=== PATIENT | male | born 1945 | race Caucasian/White ===

== ENCOUNTER 2016-10-05 11:22 | Outpatient (CLI) | payer MEDICARE ==
[~2016-10-05] VITALS: Ht 177.8 cm; Wt 86.4 kg
--- NOTE | ~2016-10-05 | HEMODYNAMI ---
PATIENT:RAJNI CHAVEZ MEDICAL RECORD: [id number] : 47 [id number] ADMISSION DATE: 10/05/16 Generatedon:10/05/201616:06 Patient name: RAJNI CHAVEZ Patient #: [id number] SSN: : 1945 Date of study: 10/05/2016 Page: Of Hemodynamic Procedure Report Patient Data Patient Demographics Procedure consent was obtained First Name: RAJNI Gender: Male Last Name: SCOTT : 1945 [facility] Initial: KIMBERLI Age: 70 year(s) AUDIE Race: Patient #: [id number] Additional ID: [id number] Contact details [address]: [address] [place] [address] State: [place] City: [place] Zip code: [address] Past Medical History Allergies: No known allergies Admission Admission Data Admission Date: 10/05/2016 Admission Time: 11:22 Admit Source: Emergency department Room #: D.2116 Height (in.): 70 BSA: 2 (m2) Height (cm.): 177.8 BMI: 25.83 (kg/m2) Weight (lbs.): 180 Weight (kg.): 81.65 Lab Results Lab Result Date: 10/05/2016 Lab Result Time: 0:00 Biochemistry Name Units Result Min Max BUN mg/dl 19 --(----)*- 7 18 Creatinine mg/dl 1.6 --(----)-* 0.6 1.3 CBC Name Units Result Min Max Hemoglobin g/dl 12 *-(----)-- 13.5 17.5 Procedure Procedure Types Cath Procedure Diagnostic Procedure LHC LHC w/Coronaries w/Grafts PCI Procedure Coronary Stent Initial Procedure Description Procedure Date Procedure Date: 10/05/2016 Procedure Start Time: 15:27 Procedure End Time: 16:05 Procedure Staff Name Function Boris Weeks MD Performing Physician Bryce Kevin RN Nurse Piero Lou RT Scrub Parminder Cromwell RT Monitor Procedure Data Cath Procedure Fluoroscopy Diagnostic fluoroscopy Total fluoroscopy Time: 11 time: 11 min min Diagnostic fluoroscopy Total fluoroscopy dose: dose: 1487 mGy 1487 mGy Contrast Material Contrast Material Type Amount (ml) Isovue 300 152 Entry Location Entry Primary Successful Side Size Upsize Upsize Entry Closure Succes sful Closure Location (Fr) 1 (Fr) 2 (Fr) Remarks Device Remarks Femoral Right 5 Fr 6 Fr 7 Fr Exoseal artery Short Short Estimated blood loss: 10 ml Diagnostic catheters Device Type Used For End Catheter Placement Cordis 5Fr Pigtail LV Angiography Catheter (MP) Cordis 5Fr JL 4.0 Coronary Catheter (MP) Angiography Cordis 5Fr 3DRC Catheter Coronary (MP) Angiography Cordis Infinity 5Fr AR 2 SVG Angiography MOD catheter Procedure Complications No complications Procedure Medications Medication Administration Route Dosage Oxygen NC 2 l/min Lidocaine 2% added to field 20 Heparin Flush Bag added to field 2 bags (1000units/500ml NS) 0.9% NaCl I.V. 100 ml/hr Versed I.V. 2 mg Fentanyl I.V. 50 mcg Versed I.V. 2 mg Fentanyl I.V. 50 mcg Versed I.V. 1 mg Fentanyl I.V. 50 mcg Heparin Bolus I.V. 4000 units Integrilin (Bolus I.V. 7.9 ml 2mg/ml) Versed I.V. 1 mg Fentanyl I.V. 50 mcg Versed I.V. 1 mg Fentanyl I.V. 50 mcg Plavix P.O. 600 mg Hemodynamics Rest BSA: 2 (m2) HGB: 12 (g/dl) O2 Consumption: Estimated: 225.2 (ml/min) O2 Consumpt ion indexed: Estimated:112.6 (ml/min/m) Heart Rate: 61 (bpm) Pressure Samples Time Site Value (mmHg) Purpose Heart Use Rate(bpm) 15:33 AO 133/65(92) Snapshot 63 Snapshots Pre Cath Intra NCS Post Cath Vital Signs Time Heart Resp SPO2 NIBP (mmHg) Rhythm Pain Sedation Rate (ipm) (%) Status Level (bpm) 15:19:44 61 15 100 173/78(149) NSR 0 (11) 10(A) , No pain 15:24:08 62 25 96 141/77(116) NSR 0 (11) 10(A) , No pain 15:28:30 57 17 100 140/75(91) NSR 0 (11) 9(A) , No pain 15:32:50 61 16 99 153/73(94) NSR 0 (11) 9(A) , No pain 15:38:16 82 16 100 164/74(119) NSR 0 (11) 9(A) , No pain 15:42:34 63 15 100 124/64(97) NSR 0 (11) 9(A) , No pain 15:47:41 62 16 100 135/66(99) NSR 0 (11) 9(A) , No pain 15:52:04 61 14 99 128/60(102) NSR 0 (11) 9(A) , No pain 15:56:18 61 16 100 138/74(119) NSR 0 (11) 10(A) , No pain 16:00:38 61 17 100 153/71(111) NSR 0 (11) 10(A) , No pain 16:05:00 60 12 100 No Cuff NSR 0 (11) 10(A) , No pain Medications Time Medication Route Dose Verified Delivered Reason Notes Effectiveness by by 15:22:48 Oxygen NC 2 Boris Buffie used for l/min Micky Kevin RN procedure 15:22:54 Lidocaine 2% added 20ml Boris Boris for local to vial Micky Weeks MD anesthetic field 15:23:01 Heparin Flush added 2 Boris Boris used for Bag to bags Micky Weeks MD procedure (1000units/500ml field NS) 15:23:10 0.9% NaCl I.V. 100 Boris Buffie Per physician ml/hr Micky Kevin RN 15:25:50 Versed I.V. 2 mg Boris Buffie for sedation Micky Kevin RN 15:25:55 Fentanyl I.V. 50 Boris Buffie for sedation mcg Micky Kevin RN 15:28:47 Versed I.V. 2 mg Boris Buffie for sedation Micky Kevin RN 15:28:50 Fentanyl I.V. 50 Boris Buffie for sedation mcg Micky Kevin RN 15:31:46 Versed I.V. 1 mg Boris Buffie for sedation Micky Kevin RN 15:31:51 Fentanyl I.V. 50 Boris Buffie for sedation mcg Micky Kevin RN 15:38:10 Heparin Bolus I.V. 4000 Boris Wu for verifi ed units Micky Kevin RN anticoagulation with dr weeks 15:39:34 Integrilin I.V. 7.9 Boris Wu for (Bolus 2mg/ml) ml Micky Kevin RN antiplatelet therapy 15:42:51 Versed I.V. 1 mg Boris Wu for sedation Micky Kevin RN 15:42:54 Fentanyl I.V. 50 Boris Wu for sedation mcg Micky Kevin RN 15:49:58 Versed I.V. 1 mg Boris Wu for sedation Micky Kevin RN 15:50:01 Fentanyl I.V. 50 Boris Wu for sedation mcg Micky Kevin RN 15:58:10 Plavix P.O. 600 Boris Wu for mg Micky Kevin RN antiplatelet therapy Procedure Log Time Note 15:00:05 Admit Source: Emergency department 15:00:23 Diagnostic Cath status Elective 15:00:25 Parminder BISHOP(R) sent for patient. Start room use. 15:00: Time tracking: Regular hours 15:00:31 Plan of Care:Hemodynamics will remain stable., Cardiac rhythm will remain stable., Comfort level will be maintained., Respiratory function will remain adequate., Patient/ family verbilizes understanding of procedure., Procedure tolerated without complication., Recovers from procedure without complications.. 15:09:22 Patient received from PCU to CCL 1 Alert and oriented. Tansferred to table in Supine position. 15::24 Warm blankets applied, and nadeen hugger turned on for patient comfort. 15::24 Correct patient and procedure confirmed by team. 15::25 Signed procedure consent form obtained from patient. 15:: ECG and BP/O2 sat monitors applied to patient. 15:18:27 Vital chart was started 15:22:48 Oxygen 2 l/min NC was given by Bryce Kevin RN; used for procedure; 15::51 Baseline sample Acquired. 15::54 Lidocaine 2% 20ml vial added to field was given by Boris Weeks MD; for local anesthetic; 15:22:55 Rhythm: sinus rhythm 15:22:57 Full Disclosure recording started 15:23:01 Heparin Flush Bag (1000units/500ml NS) 2 bags added to field was given by Boris Weeks MD; used for procedure; 15:23:01 H&P Date Dictated: 10/05/2016 Within 30 days and on chart.. 15:23:01 Pre-procedure instructions explained to patient. 15:23:02 Pre-op teaching completed and patient verbalized understanding. 15:23:03 Family in waiting room. 15:23:10 0.9% NaCl 100 ml/hr I.V. was given by Bryce Kevin RN; Per physician; 15:23:11 Patient allergic to No known allergies 15:23:13 Is the patient allergic to Iodine/contrast media? No. 15:23:15 Is patient on blood thinner?Yes 15:23:19 ACC The patient was administered the following blood thiners within the last 24 hours: Unknown 15:24:10 Patient diabetic? No. 15:24:15 Previous problem with sedation/anesthesia? No ? 15:24:16 Snore? No 15:24:17 Sleep apnea? No 15:24:18 Deviated septum? No 15:24:19 Opens mouth fully? Yes 15:24:20 Sticks out tongue? Yes 15:24:21 Airway obstruction? No ? 15:24:23 Dentures? No ? 15:24:26 Pre procedure: right dorsailis pedis pulse 1+ Palpable, but thready & weak; easily obliterated 15:24:29 Patient pain scale 0/10 ?. 15:24:33 IV patent on arrival in left forearm with 0.9% NaCl at KVO. 15:24:35 Lab results completed and on chart. 15:24:38 Right groin area was prepped with chlora-prep and draped in sterile fashion 15:24:39 Alarms reviewed by R. N. 15:24:39 Sharps counted by scrub and verified by R.N. 15:24:41 --------ALL STOP TIME OUT------ 15:24:41 Final Timeout: patient, procedure, and site verified with staff and physician. All members of the team are in agreement. 15:24:48 Right groin site verified by team. 15:24:51 Physical assessment completed. ASA score P 2 - A patient with mild systemic disease as per Boris Weeks MD. 15:24:54 Sedation plan: IV Moderate Sedation Versed, Fentanyl 15:25:50 Versed 2 mg I.V. was given by Bryce Kevin RN; for sedation; :: Fentanyl 50 mcg I.V. was given by Bryce Kevin RN; for sedation; 15::33 Zero performed for pressure channel P1 15::36 Use device set Femoral Dx 15::38 Tegaderm 4 x 4 opened to sterile field. 15::40 Acist Hand Control opened to sterile field. 15::40 Acist Manifold opened to sterile field. 15::41 Acist Syringe opened to sterile field. 15::42 Bag Decanter opened to sterile field. 15::42 Cardinal Cath Pack opened to sterile field. 15::42 Terumo 5Fr Salix Sheath opened to sterile field. 15::43 St Ricardo 260cm J .035 wire opened to sterile field. 15:: Cordis Infinity 5Fr Multipack catheter opened to sterile field. 15::56 Procedure started. 15::58 Local anesthetic to right femoral artery with Lidocaine 2% by Boris Weeks MD.INITIAL ACCESS ONLY 15::47 Versed 2 mg I.V. was given by Bryce Kevin RN; for sedation; ::50 Fentanyl 50 mcg I.V. was given by Bryce Kevin RN; for sedation; :: Lab Result : Hemoglobin 12 g/dl 15:: Lab Result : Creatinine 1.6 mg/dl 15:: Lab Result : BUN 19 mg/dl 15:: A 5 Fr sheath was inserted into the Right Femoral artery 15::53 A Cordis 5Fr Pigtail Catheter (MP) was advanced over the wire and used for LV Angiography. 15::30 LV angiography performed. 15::31 LV gram done using ATWOOD 15::36 EF : 50 % :: Injector settings: Ml/sec: 5, Volume: 15, 15::43 Catheter removed. 15::46 Versed 1 mg I.V. was given by Bryce Kevin RN; for sedation; 15::48 A Cordis 5Fr JL 4.0 Catheter (MP) was advanced over the wire and used for Coronary Angiography. 15::51 Fentanyl 50 mcg I.V. was given by Bryce Kevin RN; for sedation; 15:32:21 LCA angiography performed. 15:32:22 Catheter removed. 15:32:26 A Cordis 5Fr 3DRC Catheter () was advanced over the wire and used for Coronary Angiography. 15:32:31 Patient Height : 177.8 cm 15:32:34 Patient Weight : 81.65 kg 15:33:34 WHITE to LAD angiography performed. 15:33:52 RCA angiography performed. 15:34:17 Terumo 6Fr Salix Sheath opened to sterile field. 15:34:18 [employer]abs (formerly [employer]) BasixCompak Inflation Kit opened to sterile field. 15:34:18 Nava Whisper J 300cm 0.014 guide wire opened to sterile field. 15:34:29 SVG to Circ angiography performed. 15:34:32 Catheter removed. 15:34:37 A Cordis Infinity 5Fr AR 2 MOD catheter was advanced over the wire and used for SVG Angiography. 15:36:06 SVG to Circ angiography performed. 15:36:10 SVG to RPDA angiography performed. 15:37:03 Relooked at SVG CIRC to better visualize. 15:37:06 Catheter removed. 15:37:17 Medtronic Launcher 6Fr HS II guide catheter opened to sterile field. 15:37:52 Sheath upsized to a 6 Fr Short. 15:38:01 ACC PCI Site: pRCA has 90% stenosis. 15:38:03 ACC Pre-intervention JORGE Flow is 3. 15:38:09 6 Fr HS 2 guide catheter was inserted over the wire 15:38:10 Heparin Bolus 4000 units I.V. was given by Bryce Kevin RN; for anticoagulation; verified with dr weeks 15:38:26 Whisper wire advanced. 15:39:08 Wire advanced across lesion. 15:39:34 Integrilin (Bolus 2mg/ml) 7.9 ml I.V. was given by Bryce Kevin RN; for antiplatelet therapy; 15:40:59 The Medtronic Resolute 4.0 X 22 stent was advanced then removed because of failure to cross lesion 15:41:37 [place] Oculeve Choice PT Extra Support J 300cm .014 gu opened to sterile field. 15:41:59 Choice PT XS wire advanced as sugey wire. 15:42:30 The [place] Sci Stewart 3.5 X 20 balloon was advanced and then removed because of failure to cross lesion 15:42:33 Wire removed. 15:42:49 Guide Catheter removed. unable to get back-up support 15:42:51 Versed 1 mg I.V. was given by Bryce Kevin RN; for sedation; 15:42:54 Fentanyl 50 mcg I.V. was given by Bryce Kevin RN; for sedation; 15:43:03 Medtronic Launcher 6Fr AR 2.0 guide catheter opened to sterile field. 15:43:10 6 Fr AR 2 guide catheter was inserted over the wire 15:44:17 Whisper wire advanced. 15:44:34 Wire advanced across lesion. 15:44:52 Whisper wire advanced as sugey wire. 15:45:06 Choice PT XS wire advanced. 15:46:02 Inflation number: 1 A [place] Sci Stewart 3.5 X 20 balloon was prepped and advanced across the Mid RCA, then inflated to 17 LOU for 0:10 (min:sec). 15:46:22 Multiple inflations made at 17 Atms. 15:46:46 Balloon removed over the wire. 15:48:29 The Medtronic Resolute 4.0 X 22 stent was advanced then removed because of failure to cross lesion 15:48:33 Wire removed. 15:48:34 Wire removed. 15:48:42 Guide Catheter removed. unable to get back-up support 15:49:58 Versed 1 mg I.V. was given by Bryce Kevin RN; for sedation; 15:50:01 Fentanyl 50 mcg I.V. was given by Bryce Kevin RN; for sedation; 15:50:05 Terumo 7Fr Salix Sheath opened to sterile field. 15:50:08 Medtronic Launcher 7Fr AR 2.0 SH guide catheter opened to sterile field. 15:50:16 Sheath upsized to a 7 Fr Short. 15:50:23 7 Fr AR 2 SH guide catheter was inserted over the wire 15:50:58 [place] Sci Choice PT Extra Support J 300cm .014 gu opened to sterile field. 15:51:05 Choice PT XS wire advanced. 15:51:31 Wire advanced across lesion. 15:52:58 Inflation number: 2 A NC Euphora 4.0 x 15 balloon was prepped and advanced across the Mid RCA, then inflated to 23 LOU for 0:10 (min:sec). 15:53:17 Multiple inflations made at 23 Atms. 15:54:12 Balloon removed over the wire. 15:55:21 Inflation Number: 3 A Medtronic Resolute 4.0 X 22 stent was prepped and advanced across the Mid RCA. The stent was deployed at 23 LOU for 0:10 (min:sec). 15:55:34 ACC Post-intervention JORGE Flow is 3. 15:55:37 Stent catheter was removed intact over wire. 15:55:38 Wire removed. 15:55:39 Guide catheter removed. 15:55:49 Cordis 7Fr Exoseal opened to sterile field. 15:56:01 Sheath removed intact; hemostasis achieved with Exoseal to the Right Femoral artery. 15:56:04 Procedure ended.(Physican Out) 15:56:30 Fluoroscopy time 11.00 minutes. 15:56:34 Fluoroscopy dose: 1487 mGy 15:56:34 Flurop Dose total: 1487 15:56:38 Contrast amount:Isovue 300 152ml. 15:56:44 Sharps counted by scrub and verified by R.N. 15:56:59 Insertion/operative site no bleeding no hematoma. 15:57:02 Post-op/insertion site Right Femoral artery dressed using a 4 x 4 and Tegaderm. 15:57:04 Post Procedure Pulses reassessed and unchanged 15:58:10 Plavix 600 mg P.O. was given by Bryce Kevin RN; for antiplatelet therapy; 15:58:17 Post procedure: right dorsailis pedis pulse 1+ Palpable, but thready & weak; easily obliterated. 15:58:20 Post-procedure physical assessment completed. ASA score P 2 - A patient with mild systemic disease as per Boris Weeks MD. 15:58:22 Post procedure rhythm: unchanged. 15:58:25 Estimated blood loss: 10 ml 15:58:27 Post procedure instruction explained to patient.Patient verbalizes understanding. 15:58:27 Patient needs reinforcement of post procedure teaching. 15:58:32 Procedure type changed to Cath procedure, Diagnostic procedure, LHC, LHC w/Coronaries w/Grafts, PCI procedure, Coronary Stent Initial 15:58:35 Procedure Complication : No complications 15:59:05 Procedure and supply charges have been captured, reviewed, submitted and are correct. 16:05:33 Vital chart was stopped 16:05:34 See physician's report for complete and final results. 16:05:38 Report given to PCU. 16:05:42 Patient transfered to PCU with Bed. 16:05:49 Procedure ended. 16:05:49 Full Disclosure recording stopped 16:06:03 ACC-PCI Only Patient was given prescriptions, or instructed by Boris Wekes MD to start/continue the following medications upon discharge: Plavix 16:06:04 End room use (Document Last) Intervention Summary Intervention Notes Time ActionType Lesion and Equipment Action# Pressure Duration Attributes Used 15:40:59 Discard Medtronic Stent Resolute 4.0 X 22 stent 15:42:30 Discard [place] Balloon Sci Stewart 3.5 X 20 balloon 15:46:02 Inflate Mid RCA [place] 1 17 00:10 balloon Sci Stewart 3.5 X 20 balloon 15:48:29 Discard Medtronic Stent Resolute 4.0 X 22 stent 15:52:58 Inflate Mid RCA NC 2 23 00:10 balloon Euphora 4.0 x 15 balloon 15:55:21 Place stent Mid RCA Medtronic 3 23 00:10 Resolute 4.0 X 22 stent Device Usage Item Name Manufacture Quantity Catalog Number Hospital Part Current Mini mal Lot# / Charge Number Stock Stock Serial# Code Tegaderm 4 3M 1 1626W [id number] [id number] 5 x 4 Acist Hand Acist 1 88617 675535 110084 649102 5 Control Medical Systems Inc Acist Acist 1 61397 986584 579054 565545 5 Manifold Medical Systems Inc Acist Acist 1 04607 069742 713138 382185 20 Syringe Medical Systems Inc Bag Microtek 1 2002S 410803 97392 993130 5 Decanter Medical Inc. Cardinal Cardinal 1 [id number] 067932 01086 509689 5 Cath Pack Health Terumo 5Fr Terumo 1 [id number] 314239 563421 603728 [address] Ricardo 1 [id number] 181527 065866 111519 30 260cm J .035 wire Cordis Cardinal 1 [id number] 853702 99018 747344 30 Infinity Health 5Fr Multipack catheter Cordis 5Fr Cardinal 1 090643 5 Pigtail Health Catheter (MP) Cordis 5Fr Cardinal 1 194494 5 JL 4.0 Health Catheter (MP) Cordis 5Fr Cardinal 1 450009 5 3DRC Health Catheter (MP) Terumo 6Fr Terumo 1 [id number] 782970 744777 350297 40 Salix Sheath [facility] 1 [id number] 966359 144862 837993 15 BasixCompak Medical Inflation Kit Nava Nava 1 [id number] 105421 246190 862125 5 Whisper J Vascular 300cm 0.014 guide wire Cordis Cardinal 1 [id number] 704793 967845 612921 20 Infinity Health 5Fr AR 2 MOD catheter Medtronic Medtronic 1 [id number] 456482 54631 325427 1 Launcher 6Fr HS II guide catheter Medtronic Medtronic 1 [id number] 232341 281720 0 [id number] Resolute 4.0 X 22 stent [place] Sci Brooklyn 2 [id number] 373108 20190325 689652 5 Choice PT Scientific Extra Support J 300cm .014 gu [place] Sci [place] 1 [id number] 141299 781378 713268 1 Ampex Scientific 3.5 X 20 balloon Medtronic Medtronic 1 [id number] 444617 06777 416144 1 Launcher 6Fr AR 2.0 guide catheter Terumo 7Fr Terumo 1 [id number] 861430 903556 959521 5 Salix Sheath Medtronic Medtronic 1 [id number] 232353 012263 253114 0 Launcher 7Fr AR 2.0 SH guide catheter NC Euphora Medtronic 1 [id number] 939695 220140 990517 1 4.0 x 15 balloon Cordis 7Fr Cardinal 1 [id number] 780742 422465 010231 5 [facility] Health Signature Audit [place] Stage Time Signature Unsigned Intra-Procedure 10/05/2016 Parminder Fu 4:06:37 PM RT(R) Signatures Monitor : Parminder Fu RT Signature : Date : Time : [facility] [address] [place] [address]
--- NOTE | ~2016-10-05 | HEMODYNAMI ---
PATIENT:RAJNI CHAVEZ MEDICAL RECORD: [id number] : 47 [id number] ADMISSION DATE: 10/05/16 Generatedon:10/06/201615:38 Patient name: RAJNI CHAVEZ Patient #: [id number] SSN: : 1945 Date of study: 10/06/2016 Page: Of Hemodynamic Procedure Report Patient Data Patient Demographics Procedure consent was obtained First Name: RAJNI Gender: Male Last Name: SCOTT : 1945 [facility] Initial: KIMBERLI Age: 70 year(s) AUDIE Race: Patient #: [id number] Additional ID: [id number] Contact details [address]: [address] [place] [address] State: [place] City: [place] Zip code: [address] Past Medical History Allergies: No known allergies Admission Admission Data Admission Date: 10/05/2016 Admission Time: 11:22 Admit Source: Other Room #: D.2116 Height (in.): 70 BSA: 2 (m2) Height (cm.): 177.8 BMI: 25.83 (kg/m2) Weight (lbs.): 180 Weight (kg.): 81.65 Lab Results Lab Result Date: 10/05/2016 Lab Result Time: 0:00 Biochemistry Name Units Result Min Max BUN mg/dl 19 --(----)*- 7 18 Creatinine mg/dl 1.6 --(----)-* 0.6 1.3 CBC Name Units Result Min Max Hemoglobin g/dl 12 *-(----)-- 13.5 17.5 Procedure Procedure Types Cath Procedure PCI Procedure SVG-BMS/ELVIN Initial Procedure Description Procedure Date Procedure Date: 10/06/2016 Procedure Start Time: 15:26 Procedure End Time: 15:36 Procedure Staff Name Function Boris Weeks MD Performing Physician Keisha Munoz RT Scrub Leann Vivar RN Nurse Parminder Fu RT Sales Service Supervisor Piero Lou RT Monitor Procedure Data Cath Procedure Fluoroscopy Diagnostic fluoroscopy Total fluoroscopy Time: 1.9 time: 1.9 min min Diagnostic fluoroscopy Total fluoroscopy dose: 227 dose: 227 mGy mGy Contrast Material Contrast Material Type Amount (ml) Isovue 300 32 Entry Location Entry Primary Successful Side Size Upsize Upsize Entry Closure Succes sful Closure Location (Fr) 1 (Fr) 2 (Fr) Remarks Device Remarks Femoral Left 6 Fr Vascade artery Short Closure System Procedure Complications No complications Procedure Medications Medication Administration Route Dosage Oxygen NC 2 l/min Heparin Flush Bag added to field 2 bags (1000units/500ml NS) Lidocaine 2% added to field 20 Versed I.V. 1 mg Fentanyl I.V. 50 mcg Versed I.V. 1 mg Fentanyl I.V. 50 mcg Versed I.V. 1 mg Fentanyl I.V. 50 mcg Heparin Bolus I.V. 4000 units Versed I.V. 1 mg Fentanyl I.V. 50 mcg Versed I.V. 1 mg Versed I.V. 1 mg Hemodynamics Rest BSA: 2 (m2) HGB: 12 (g/dl) O2 Consumption: Estimated: 230.79 (ml/min) O2 Consump tion indexed: Estimated:115.4 (ml/min/m) Heart Rate: 69 (bpm) Snapshots Pre Cath Intra NCS Post Cath Vital Signs Time Heart Resp SPO2 NIBP (mmHg) Rhythm Pain Sedation Rate (ipm) (%) Status Level (bpm) 15:14:09 74 17 98 187/86(130) NSR 0 (11) 10(A) , No pain 15:18:36 69 14 100 167/76(117) NSR 0 (11) 10(A) , No pain 15:22:56 71 16 99 150/75(121) NSR 0 (11) 10(A) , No pain 15:27:16 70 16 100 133/69(97) NSR 0 (11) 10(A) , No pain 15:31:36 76 16 98 143/68(101) NSR 0 (11) 10(A) , No pain 15:35:50 75 14 100 141/77(104) NSR 0 (11) 10(A) , No pain Medications Time Medication Route Dose Verified Delivered Reason Notes Effectiveness by by 15:16:56 Oxygen NC 2 Boris Noriega Per physician l/min Micky Vivar RN 15:17:04 Heparin Flush added 2 Borismelisa Camposrey used for Bag to bags Micky Weeks MD procedure (1000units/500ml field NS) 15:17:12 Lidocaine 2% added 20ml Boris Boris used for to vial Micky Weeks MD procedure field 15:19:00 Versed I.V. 1 mg Boris Leann for sedation Micky Vivar RN 15:19:14 Fentanyl I.V. 50 Boris Leann for sedation mcg Micky Vivar RN 15:21:04 Versed I.V. 1 mg Boris Leann for sedation Micky Vivar RN 15:21:08 Fentanyl I.V. 50 Boris Leann for sedation mcg Micky Vivar RN 15:24:17 Versed I.V. 1 mg Boris Leann for sedation Micky Vivar RN 15:24:21 Fentanyl I.V. 50 Boris Leann for sedation mcg Micky Vivar RN 15:26:00 Fentanyl I.V. 50 Boris Leann for sedation mcg Micky Vivar RN 15:26:58 Versed I.V. 1 mg Boris Leann for sedation Micky Vivar RN 15:28:37 Heparin Bolus I.V. 4000 Boris Leann for dose units Micky Vivar RN anticoagulation verified wtih dr weeks 15:28:42 Versed I.V. 1 mg Boris Leann for sedation Micky Vivar RN 15:30:22 Versed I.V. 1 mg Boris Leann for sedation Micky Vivar industrial controls technician Log Time Note 15:01:39 Admit Source: Other 15:03:44 Diagnostic Cath status Elective 15:03:47 Parminder Fu RT(R) sent for patient. Start room use. 15:04:25 Time tracking: Regular hours 15:04:31 Plan of Care:Hemodynamics will remain stable., Cardiac rhythm will remain stable., Comfort level will be maintained., Respiratory function will remain adequate., Patient/ family verbilizes understanding of procedure., Procedure tolerated without complication., Recovers from procedure without complications.. 15:04:47 Patient received from Outpatients to [facility] 1 Alert and oriented. Tansferred to table in Supine position. 15:12:46 Warm blankets applied, and nadeen hugger turned on for patient comfort. 15:12:46 Correct patient and procedure confirmed by team. 15:12:48 Signed procedure consent form obtained from patient. 15:12:48 ECG and BP/O2 sat monitors applied to patient. 15:12:49 Vital chart was started 15:16:33 Baseline sample Acquired. 15:16:38 Rhythm: sinus rhythm 15:16:40 Full Disclosure recording started 15:16:44 H&P Date Dictated: 10/05/2016 Within 30 days and on chart.. 15:16:44 Pre-procedure instructions explained to patient. 15:16:45 Pre-op teaching completed and patient verbalized understanding. 15:16:49 Family in patients room. 15:16:50 Patient NPO since Midnight. 15:16:53 Is the patient allergic to Iodine/contrast media? No. 15:16:55 Is patient on blood thinner?Yes 15:16:56 Oxygen 2 l/min NC was given by Leann Vivar RN; Per physician; 15:16:57 ACC The patient was administered the following blood thiners within the last 24 hours: ACCPlavix 15:17:04 Heparin Flush Bag (1000units/500ml NS) 2 bags added to field was given by Boris Weeks MD; used for procedure; 15:17:12 Lidocaine 2% 20ml vial added to field was given by Boris Weeks MD; used for procedure; 15:17:18 Patient diabetic? No. 15:17:22 Previous problem with sedation/anesthesia? No ? 15:17:24 Snore? No 15:17:41 Sleep apnea? No 15:17:42 Deviated septum? No 15:17:50 Opens mouth fully? Yes 15:17:51 Sticks out tongue? Yes 15:17:53 Airway obstruction? No ? 15:17:55 Dentures? No ? 15:17:59 Pre procedure: left dorsailis pedis pulse 1+ Palpable, but thready & weak; easily obliterated 15:18:02 Patient pain scale 0/10 ?. 15:18:13 IV patent on arrival in left forearm with 0.9% NaCl at [facility]. 15:18:15 Lab results completed and on chart. 15:18:18 Left groin area was prepped with chlora-prep and draped in sterile fashion 15:18:20 Alarms reviewed by R. N. 15:18:20 Sharps counted by scrub and verified by R.N. 15:18:24 Use device set Femoral PCI 15:18:25 Tegaderm 4 x 4 opened to sterile field. 15:18:27 Acist Manifold opened to sterile field. 15:18:29 Acist Syringe opened to sterile field. 15:18:29 Acist Hand Control opened to sterile field. 15:18:29 Bag Decanter opened to sterile field. 15:18:30 Cardinal Cath Pack opened to sterile field. 15:18:30 Terumo 6Fr [place] Sheath opened to sterile field. 15:18:30 St Ricardo 260cm J .035 wire opened to sterile field. 15:18:31 Merit BasixCompak Inflation Kit opened to sterile field. 15:18:38 Nava Whisper J 300cm 0.014 guide wire opened to sterile field. 15:18:53 --------ALL STOP TIME OUT------ 15:18:54 Final Timeout: patient, procedure, and site verified with staff and physician. All members of the team are in agreement. 15:18:56 Left groin site verified by team. 15:18:59 Physical assessment completed. ASA score P 2 - A patient with mild systemic disease as per Boris Weeks MD. 15:19:00 Versed 1 mg I.V. was given by Leann Vivar RN; for sedation; 15:19:03 Sedation plan: IV Moderate Sedation Versed, Fentanyl 15::14 Fentanyl 50 mcg I.V. was given by Leann Vivar RN; for sedation; 15::04 Versed 1 mg I.V. was given by Leann Vivar RN; for sedation; 15::08 Fentanyl 50 mcg I.V. was given by Leann Vivar RN; for sedation; 15:24:17 Versed 1 mg I.V. was given by Leann Vivar RN; for sedation; 15::21 Fentanyl 50 mcg I.V. was given by Leann Vivar RN; for sedation; 15::00 Fentanyl 50 mcg I.V. was given by Leann Vivar RN; for sedation; 15:26:12 Medtronic Launcher 6Fr AR 2.0 SH guide catheter opened to sterile field. 15:26:39 Procedure started. 15::46 Zero performed for pressure channel P1 15::55 Local anesthetic to left femerol artery with Lidocaine 2% by Boris Weeks MD.INITIAL ACCESS ONLY 15::58 Versed 1 mg I.V. was given by Leann Vivar RN; for sedation; 15::05 A 6 Fr Short sheath was inserted into the Left Femoral artery 15:27:16 ACC PCI Site: pRCA has 75% stenosis. 15:27:18 ACC Pre-intervention JORGE Flow is 3. 15:27:31 6 Fr AR 2 SH guide catheter was inserted over the wire 15::37 Heparin Bolus 4000 units I.V. was given by Leann Vivar RN; for anticoagulation; dose verified wtih dr weeks 15::42 Versed 1 mg I.V. was given by Leann Vivar RN; for sedation; 15:29:26 WHISPER wire advanced. 15:30:22 Versed 1 mg I.V. was given by Leann Vivar RN; for sedation; 15::42 Inflation Number: 1 A Medtronic Resolute 3.5 X 15 stent was prepped and advanced across the Aorta Left -> Prox CX. The stent was deployed at 13 LUO for 0:10 (min:sec). 15:31:48 ACC Post-intervention JORGE Flow is 3. 15:31:49 Stent catheter was removed intact over wire. 15::49 Wire removed. 15:31:50 Guide catheter removed. 15:31:56 Contrast amount:Isovue 300 32ml. 15:32:05 Sheath removed intact; hemostasis achieved with Vascade Closure System to the Left Femoral artery. 15:32:07 Procedure ended.(Physican Out) 15:32:17 Fluoroscopy time 01.90 minutes. 15:32:21 Fluoroscopy dose: 227 mGy 15:32:21 Flurop Dose total: 227 15:32:23 Sharps counted by scrub and verified by R.N. 15:32:24 Insertion/operative site no bleeding no hematoma. 15:32:26 Post-op/insertion site Left Femoral artery dressed using a 4 x 4 and Tegaderm. 15:32:31 Post left femerol artery:stable 15:32:32 Post Procedure Pulses reassessed and unchanged 15:32:34 Post procedure rhythm: sinus rhythm 15:32:36 Post procedure instruction explained to patient.Patient verbalizes understanding. 15:32:48 Vascade 6/7 Fr Closure Device opened to sterile field. 15:33:09 Procedure and supply charges have been captured, reviewed, submitted and are correct. 15:33:13 Procedure Complication : No complications 15:36:38 Vital chart was stopped 15:36:39 See physician's report for complete and final results. 15:36:40 Report given to PCU. 15:36:42 Patient transfered to PCU with Bed. 15:36:44 Procedure ended. 15:36:44 Full Disclosure recording stopped 15:36:51 ACC-PCI Only Patient was given prescriptions, or instructed by Boris Weeks MD to start/continue the following medications upon discharge: Plavix 15:36:52 End room use (Document Last) Intervention Summary Intervention Notes Time ActionType Lesion and Equipment Action# Pressure Duration Attributes Used 15:31:42 Place stent Aorta Left Medtronic 1 13 00:10 -> Prox CX Resolute 3.5 X 15 stent Device Usage Item Name Manufacture Quantity Catalog Hospital Part Current Minima l Lot# / Number Charge Number Stock Stock Serial# Code Tegaderm 4 3M 1 [id number] [id number] 529101 503816 5 x 4 Acist Acist 1 53315 658599 889759 416087 5 Manifold Medical Systems Inc Acist Acist 1 00427 949077 375008 887929 20 Syringe Medical Systems Inc Acist Hand Acist 1 61351 540206 360093 863848 5 Control Medical Systems Inc Bag Microtek 1 2002S 079628 61519 754296 5 Poachable Medical Inc. Cardinal Cardinal [address] 677170 74286 748654 5 [place] Medical Terumo 6Fr Terumo 1 HNN014 049110 378978 906597 [address] Ricardo 1 373894 164749 790897 873552 30 260cm J .035 wire Merit Merit 1 [id number] 965099 177890 597536 15 BasixCompak Medical Inflation Kit Nava Nava 1 [id number] 228126 186979 228638 5 Whisper J Vascular 300cm 0.014 guide wire Medtronic Medtronic 1 [id number] 727538 46842 230954 1 Launcher 6Fr AR 2.0 SH guide catheter Medtronic Medtronic 1 [id number] 860230 668722 3 [id number] Resolute 3.5 X 15 stent Vascade 02/28 Cardiva 1 [id number] 576839 402786 848159 5 Fr Closure Medical, Device Inc. Signature Audit [place] Stage Time Signature Unsigned Intra-Procedure 10/06/2016 Piero Lou 3:38:12 PM RT(R) Signatures Monitor : Piero Lou RT Signature : Date : Time : [address] [address]
[2016-10-05 10:17] LABS: BASOPHILS 0.2 % (0.0-2.0); EOSINOPHILS 1.9 % (0-7); HEMATOCRIT 36.8 % (42.0-54.0); IMMATURE GRANULOCYTES 0.2 % (0-5); LYMPHOCYTES 14.1 % (15-50); MCH 30.5 pg (26.0-34.0); MCHC 32.6 g/dL (31.0-37.0); MCV 93.6 fL (80.0-100.0); MEAN PLATELET VOLUME 10.2 fL (7.4-10.4); MONOCYTES 6.4 % (2-11); NEUTROPHILS 77.2 % (40-80); PLATELET COUNT 204 10x3/uL (130-400); RBC 3.93 10x6/uL (4.20-6.10); RDW 13.3 % (11.5-14.5); WBC 8.3 10x3/uL (4.8-10.8)
[2016-10-05 10:36] LABS: ALBUMIN 3.6 g/dL (3.4-5.0); ALKALINE PHOSPHATASE 79 U/L (46-116); ALT (SGPT) 20 U/L (10-68); CALC OSMOLALITY 280 mosm/kg (275-300); CALCIUM 8.8 mg/dL (8.5-10.1); CARBON DIOXIDE 31.1 mmol/L (21.0-32.0); CHLORIDE - SERUM 103 mmol/L (98-107); CREATININE - SERUM 1.6 mg/dL (0.6-1.3); GLUCOSE 102 mg/dL (74-106); POTASSIUM - SERUM 4.1 mmol/L (3.5-5.1); PROTEIN - SERUM 6.9 g/dL (6.4-8.2); SODIUM 140 mmol/L (136-145); UREA NITROGEN 19 mg/dL (7-18); eGFR NON AFRICAN AMERICAN 46 mL/min (90-120)
[2016-10-05 10:48] LABS: CHOL - HDL RATIO 3.1 ratio (2.3-4.9); CHOLESTEROL, TOTAL 200 mg/dL (0-200); CKMB 0.2 U/L (0.0-3.6); CREATINE KINASE 72 UL (21-232); HDL CHOLESTEROL 64 mg/dL (32-96); LDL CHOLESTEROL 109 mg/dL (0-100); LDL-HDL RATIO 1.7 ratio (1.5-3.5); PRO BNP 511 pg/mL (0-125); TRIGLYCERIDE 137 mg/dL (30-200); TROPONIN-I < 0.017 ng/mL (0.000-0.060)
[~2016-10-05 11:22] MED LIST: BAYER CHEWABLE81 MG PO; CALCIUM 600 +1 EAC3; FISH OIL 1,2001 CAP PO; FLOVENT DI50 MCG/DIS INH; GLUCOSAMINE & C1 CAP PO; HYDROCODONE-APA1 TAB PO; ISOSORBIDE DINI30 MG PO; LOPRESSOR25 MG PO; MIRALAX17 GM PO; MOBIC7.5 MG PO; MULTIPLE VITAMI1 TA1 PO; NEXIUM40 MG; PAROXETINE HCL10 MG PO; PLAVIX75 MG PO; PRAVACHOL80 MG; UROCIT-K10 MEQ PO; VITAMIN D31000 UNI2
--- NOTE | 2016-10-05 13:54 | NUR ---
TRANSFER FROM ER BY W/C. JONATHANINTED TO ROOM. CALL LIGHT IN REACH. WILL CONT. PLAN OF CARE.
[2016-10-05 14:04] VITALS: BP 135/74; Ht 177.8 cm; Wt 86.4 kg
[2016-10-05] MEDS ORDERED: NITROSTAT0.4 MG SL (14:11)
[2016-10-05] MEDS ORDERED: NEXIUM40 MG PO (14:13)
[2016-10-05] MEDS ORDERED: PAXIL20 MG PO (14:14)
[2016-10-05] MEDS ORDERED: CALCIUM 600 +1 EAC3 PO (14:16)
[2016-10-05] MEDS ORDERED: PROAIR HFA8.5 GM INH (14:19)
--- NOTE | 2016-10-05 14:36 | NUR ---
CONSENTS SIGNED FOR [facility].
--- NOTE | 2016-10-05 15:09 | NUR ---
PRE-OPS GIVEN. TO MAJOR ACCOUNT MANAGER BY BED.
--- NOTE | 2016-10-05 16:22 | NUR ---
BACK FROM [employer] TRANSPORTATION PROVIDER. VS WNL. RIGHT GROIN STABLE WITHOUT BLEEDING OR HEMATOMA NOTED. WILL MONITOR.
--- NOTE | 2016-10-05 19:32 | NUR ---
RESUMED CARE OF PT, LYING IN BED RESPIRATIONS EVEN AND UNLABORED ON 2LPM VIA NC. 57 SB ON TELEMETRY. RIGHT GROIN WNL, PEDAL PULSE PALPABLE. LEFT WRIST INFUSING NS @ 50. NO NEEDS VOICED AT THIS TIME. CALL LIGHT IN REACH. WILL CONTINUE TO MONITOR. SEE NURSE ASSESSMENT.
[2016-10-05 20:50] VITALS: BP 133/63
[2016-10-06 02:50] VITALS: BP 189/82
--- NOTE | 2016-10-06 05:00 | NUR ---
CALL LIGHT IN REACH, WILL CONTINUE WITH PLAN OF CARE.
[2016-10-06 05:22] VITALS: BP 134/70
[2016-10-06 05:41] LABS: BASOPHILS 0.2 % (0.0-2.0); EOSINOPHILS 2.1 % (0-7); HEMATOCRIT 39.9 % (42.0-54.0); HEMOGLOBIN 12.8 g/dL (13.5-17.5); IMMATURE GRANULOCYTES 0.2 % (0-5); LYMPHOCYTES 12.6 % (15-50); MCH 30.4 pg (26.0-34.0); MCHC 32.1 g/dL (31.0-37.0); MCV 94.8 fL (80.0-100.0); MEAN PLATELET VOLUME 10.6 fL (7.4-10.4); MONOCYTES 7.4 % (2-11); NEUTROPHILS 77.5 % (40-80); PLATELET COUNT 217 10x3/uL (130-400); RBC 4.21 10x6/uL (4.20-6.10); RDW 13.5 % (11.5-14.5); WBC 8.9 10x3/uL (4.8-10.8)
[2016-10-06 06:22] LABS: ANION GAP 11.3 mmol/L (8-16); CALCIUM 8.8 mg/dL (8.5-10.1); CARBON DIOXIDE 30.8 mmol/L (21.0-32.0); CREATININE - SERUM 1.4 mg/dL (0.6-1.3); POTASSIUM - SERUM 4.1 mmol/L (3.5-5.1)
[2016-10-06 06:25] LABS: TROPONIN-I 0.176 ng/mL (0.000-0.060)
[2016-10-06 08:00] VITALS: BP 147/72
--- NOTE | 2016-10-06 11:11 | OP ---
PATIENT NAME: RAJNI CHAVEZ MEDICAL RECORD: [id number] :47 LOCATION:D.M2 D.2116 ADMISSION DATE:10/05/16 SURGEON: NELSY WALTON MD DATE OF OPERATION: 10/05/2016 PROCEDURES: 1. PTCA stent RCA. 2. Left heart catheterization. 3. Selective coronary angiography. 4. Vein graft angiography. 5. WHITE angiography. 6. Left ventriculogram. INDICATION: Unstable angina. PROCEDURE IN DETAIL: After informed consent was obtained and after a detailed explanation of risks, benefits as well as alternative therapies, the patient elected to proceed with angiogram and angioplasty. The right femoral area was prepped and draped in normal sterile fashion. The right femoral artery was cannulated via modified Seldinger technique with placement of 6-Chinese sheath. All catheters exchanged through this sheath. FINDINGS: The left ventriculogram was performed in standard 30-degree ATWOOD view reveals preserved cardiac wall motion, ejection fraction is 50%. SELECTIVE CORONARY ANGIOGRAPHY: 1. Left main showed no significant angiographic disease. 2. Left anterior descending has a total occlusion in the proximal vessel. 3. WHITE to the LAD is widely patent. 4. Left circumflex has total occlusion in the proximal vessel. 5. Vein graft to the circumflex is widely patent; however, the ostium of the vein graft and the proximal sections shows greater than 70% stenosis. 6. ____ the hamilton right coronary leads into the PLV, this is nongrafted, this has previously placed stents. There is 90% in-stent restenosis. 7. Vein graft to the right PDA is widely patent. The PDA and PLV are not connected, hence, each of the vein graft and the hamilton RCA feeds these territories independently. PERCUTANEOUS TRANSLUMINAL CORONARY ANGIOPLASTY STENT OF THE [place] RIGHT CORONARY: The stent used was 4.0 x 22 mm Resolute taken to 23 atmospheres. Result was 0% residual stenosis. OVERALL IMPRESSION: Successful percutaneous transluminal coronary angioplasty stent of the hamilton right coronary artery going from 90% in-stent restenosis to 0% residual stenosis. PLAN: For PTCA stent of the vein graft to the left circumflex in the near future. TRANSINT:[id number] Voice Confirmation ID: [id number] DOCUMENT ID: [id number] OPERATIVE REPORT [id number] RAJNI CHAVEZNELSY SHAW MD at 1111 CC: [id number] DICTATION DATE: 10/05/16 1602 DOCK GRADER: 10/05/16 1613 ADM IN [place] [id number] [place] [id number]
--- NOTE | 2016-10-06 11:11 | HP ---
PATIENT: RAJNI CHAVEZ TIOGA MEDICAL RECORD: [id number] ACCOUNT: [id number] LOCATION:D. D.2116 : 47 ADMISSION DATE: 10/05/16 HISTORY AND PHYSICAL EXAMINATION ADMITTING DIAGNOSES: 1. Angina. 2. Coronary artery disease. 3. Previous multivessel percutaneous transluminal coronary angioplasty stent. 4. Hypertension. 5. Hyperlipidemia. HISTORY OF PRESENT ILLNESS: This is a gentleman with a past history of coronary artery disease, previous multivessel PTCA stent, who presents to the ER with chest pain. This is actually a second presentation in the ER with chest pain. He presented last week with chest pain. He has continued to have the episodes of chest pain, they have worsened. He now has class IV unstable rest pain. PHYSICAL EXAMINATION: GENERAL APPEARANCE: Well-nourished, well-developed, appears stated age. Level of distress, comfortable. PSYCHIATRIC: Mental status, alert, normal affect. Orientation, oriented to time, place and person. EYES: Lids and conjunctiva, noninjected. No discharge, no pallor. ENT: Lips, teeth, gums, normal dentition. Oropharynx, no cyanosis, no pallor. NECK: Carotid arteries, bilateral normal upstroke, no bruits, no thrills. JUGULAR VEINS: No jugular venous pressure or distention. CERVICAL LYMPH NODES: Nontender, nonenlarged. THYROID: Not enlarged. Nontender. No nodules. LUNGS: Respiratory effort, unlabored. CHEST: Normal curvature. No thoracic deformity. No chest wall tenderness. Percussion, resonant. Auscultation, clear. No wheezes, no rales, no rhonchi. CARDIOVASCULAR: Precordial exam, nondisplaced. No heaves or pericardial thrills. Rate and rhythm, regular. Heart sounds, normal S1, normal S2. No S3, no gallop, no rub. Systolic murmur, not heard. Diastolic murmur, not heard. EXTREMITIES: No cyanosis, no edema. Peripheral pulses, full and equal in all extremities, except as noted. No bruits appreciated. ABDOMEN: Soft, nondistended. Normal aorta. No bruit. Nontender. No masses. Liver, nontender, no hepatomegaly. Spleen, nontender, no splenomegaly. MUSCULOSKELETAL: No joint tenderness. No joint swelling. No erythema. NEUROLOGICAL: Normal gait, normal strength, normal tone. SKIN: Warm and dry. REVIEW OF SYSTEMS: The patient reports easy bruising but reports no swollen glands. The patient reports no fever, no night sweats, no significant weight gain, no significant weight loss. No significant exercise tolerance. The patient reports no dry eyes, no irritation, no vision change. Patient reports no difficulty hearing and no ear pain. Patient reports no frequent nose bleeds or nose and sinus problems. Patient reports on arm pain on exertion. No shortness of breath while lying down. No history of heart murmur. Patient reports no cough, no wheezing or coughing up blood. Patient reports no abdominal pain, no vomiting. Normal appetite. No diarrhea and not vomiting blood. No nausea and no constipation. Patient reports no incontinence. No difficulty urinating. No hematuria. No increased frequency. Patient reports no muscle aches. No weakness, no arthralgias, no back pain. No swelling of the HISTORY AND PHYSICAL [id number] RAJNI CHAVEZG extremities. Patient reports no abnormal mole, no jaundice, no rashes. Reports no loss of consciousness. No weakness and no numbness. No seizures, dizziness, or headaches. The patient reports no depression, no sleep disturbance, feeling safe in a relationship and no alcohol abuse. Patient reports on fatigue. Reports no runny nose or sinus pressure. No itching, no hives, and no frequent sneezing. OVERALL IMPRESSION: Chest pain compatible with angina in an unstable fashion, most likely he has recurrent hemodynamically significant coronary artery disease. We will proceed with coronary angiography. Further care depends upon the findings of the angiography. TRANSINT:[id number] Voice Confirmation ID: [id number] DOCUMENT ID: [id number] NELSY WALTON MD at 1111 CC: [id number] DICTATION DATE: 10/05/16 1221 SET UP MOLD TECHNICIAN: 10/05/16 1230 [place] [address]
[2016-10-06 12:00] VITALS: BP 158/71
--- NOTE | 2016-10-06 13:12 | NUR ---
DOBUTREX GTT DCD.
--- NOTE | 2016-10-06 15:02 | NUR ---
PRE-OPS GIVEN. TO BUSINESS CONTINUITY GLOBAL DIRECTOR BY BED.
--- NOTE | 2016-10-06 15:56 | NUR ---
BACK FROM [facility] LAB. VS WNL. LEFT GROIN STABLE WITHOUT BLEEDING OR HEMATOMA NOTED. WILL MONITOR.
[2016-10-06] MEDS ORDERED: PRAVACHOL80 MG PO (16:01)
--- NOTE | 2016-10-06 20:07 | NUR ---
IV REMOVED, TELEMETRY OFF. PT SIGNS DISCHARGE INSTRUCTIONS. LEAVES FLOOR ACCOMPANIED BY FAMILY VIA WC TO PERSONAL AUTO. LT GROIN WITHOUT BLEEDING OR HEMATOMA. NAD NOTED.
--- NOTE | 2016-10-13 16:40 | DS ---
PATIENT:RAJNI CHAVEZ :47 MEDICAL RECORD: [id number] DISCHARGE SUMMARY ADMISSION DATE: 10/05/16 DISCHARGE DATE: 10/06/16 DISCHARGE DIAGNOSES: 1. Angina. 2. Coronary artery disease. 3. Percutaneous transluminal coronary angioplasty stent vein graft to the circumflex and right coronary artery this admission. HOSPITAL COURSE: Mr. Chavez presents with unstable anginal symptomatology, found to have 3-vessel coronary artery disease, underwent successful PTCA stent of the [place] RCA as well as vein graft to the left circumflex. He was discharged home with the addition of aspirin and Plavix to his medical regimen. He will follow up with [facility]. TRANSINT:[id number] Voice Confirmation ID: [id number] DOCUMENT ID: [id number] NELSY WALTON MD at 1640 CC: [id number] DICTATION DATE: 10/06/16 1536 CROP AND SOIL TECHNICIAN: 10/06/16 2144 DEP CLI 10/06/16 [place] [id number] [place] [address]
--- NOTE | 2016-10-13 16:40 | OP ---
PATIENT NAME: RAJNI CHAVEZ MEDICAL RECORD: [id number] :47 LOCATION:D.CAT ADMISSION DATE: SURGEON: NELSY WALTON MD DATE OF OPERATION: 10/06/2016 PROCEDURES: 1. PTCA, stent, vein graft to left circumflex. 2. Selective vein graft and coronary angiography. INDICATION: Angina and coronary artery disease. PROCEDURE: After informed consent was obtained and after detailed explanation of risks, benefits as well as alternative therapies, the patient elected to proceed with angiogram and angioplasty. The left femoral area was prepped and draped in normal sterile fashion. The left femoral artery was cannulated via modified Seldinger technique with placement of a 6-[place] sheath. All catheters exchanged through this sheath. FINDINGS: The vein graft to the left circumflex has a 75% stenosis at the ostium. This was addressed with a 3.5 x 15 mm Resolute stent. Result was 0% residual, no angiographic evidence of dissection or thrombus. OVERALL IMPRESSION: Successful percutaneous transluminal coronary angioplasty stent of the vein graft to the circumflex going from 75% initial stenosis to 0% residual. TRANSINT:[id number] Voice Confirmation ID: [id number] DOCUMENT ID: [id number] NELSY WALTON MD at 1640 CC: [id number] DICTATION DATE: 10/06/16 153 THERMAL CUTTING TRACER MACHINE OPERATOR: 10/06/162056 [facility] CLI 10/06/16 [place] [id number]
== END 2016-10-06 20:07 | disposition home or self-care (01) ==
LOC: OBSVTIME → D.M2 11:22 → D.ER 11:22 → OBSVTIME 11:22 → D.M2 11:22 → D.CATH 11:22 → EDSTATUS 13:00 → D.M2 13:37 → D.SDCHOLD 13:37 → D.CATH 10-06 20:07 → D.M2 10-06 20:07
PROVIDERS: Emergency Medicine
DX: I25.110 Atherosclerotic heart disease of native coronary artery with unstable angina pectoris (principal); T82.855A Stenosis of coronary artery stent, initial encounter; Z95.1 Presence of aortocoronary bypass graft; I10 Essential (primary) hypertension; E78.5 Hyperlipidemia, unspecified
CPT/HCPCS: 93459; C9600; C9604

== ENCOUNTER 2019-12-27 19:56 | Inpatient (IN) | payer MEDICARE ==
[~2019-12-27 19:56] MED LIST changes: +CALCIUM 600 +1 EAC3 PO; +NEXIUM40 MG PO; +NITROSTAT0.4 MG SL; +PAXIL20 MG PO; +PRAVACHOL80 MG PO; +PROAIR HFA8.5 GM INH
[2019-12-27] MEDS ORDERED: TOPROL XL25 MG PO (20:04)
[2019-12-27] MEDS ORDERED: PEPCID40 MG PO (20:04)
[2019-12-27] MEDS ORDERED: NAMENDA10 MG PO (20:05)
[2019-12-27] MEDS ORDERED: PRAVACHOL40 MG PO (20:05)
[2019-12-27] MEDS ORDERED: MOBIC7.5 MG PO (20:05)
[2019-12-27] MEDS ORDERED: GABAPENTIN100 MG PO (20:05)
[2019-12-27] MEDS ORDERED: ISOSORBIDE MONO30 M1 PO (20:06)
[2019-12-27] MEDS ORDERED: DONEPEZIL HCL10 MG PO (20:06)
[2019-12-27] MEDS ORDERED: CELEXA40 MG PO (20:06)
[2019-12-27 20:16] LABS: BASOPHILS 0.3 % (0-2); EOSINOPHILS 1.5 % (0-7); HEMATOCRIT 42.6 % (42.0-54.0); HEMOGLOBIN 14.2 g/dL (13.5-17.5); IMMATURE GRANULOCYTES 0.1 % (0-5); LYMPHOCYTES 23.3 % (15-50); MCH 31.7 pg (26.0-34.0); MCHC 33.3 g/dL (31.0-37.0); MCV 95.1 fL (80.0-100.0); MEAN PLATELET VOLUME 10.2 fL (7.4-10.4); MONOCYTES 8.5 % (2-11); NEUTROPHILS 66.3 % (40-80); PLATELET COUNT 206 10x3/uL (130-400); RBC 4.48 10x6/uL (4.20-6.10); RDW 13.2 % (11.5-14.5); WBC 7.8 10x3/uL (4.8-10.8)
[2019-12-27 20:20] LABS: BILIRUBIN NEGATIVE (NEGATIVE); GLUCOSE NEGATIVE (NEGATIVE); KETONE SMALL mg/dL (NEGATIVE); NITRITE NEGATIVE (NEGATIVE); SPECIFIC GRAVITY 1.025 (1.005-1.020); UROBILINOGEN NORMAL (NORMAL)
[2019-12-27 20:21] LABS: BACTERIA FEW /hpf (NEGATIVE); RED CELLS - URINE OCC /hpf (0-5); WHITE CELLS - URINE 0-5 /hpf (NEGATIVE)
[2019-12-27 20:25] LABS: UDS - AMPHET NEGATIVE QUAL (NEGATIVE); UDS - BARB NEGATIVE QUAL (NEGATIVE); UDS - BENZO NEGATIVE QUAL (NEGATIVE); UDS - COCAINE NEGATIVE QUAL (NEGATIVE); UDS - OPIATE NEGATIVE QUAL (NEGATIVE); UDS - PCP NEGATIVE QUAL (NEGATIVE); UDS - THC NEGATIVE QUAL (NEGATIVE)
[2019-12-27 20:28] LABS: ANION GAP 11.6 mmol/L (8-16); CREATININE - SERUM 2.1 mg/dL (0.6-1.3); POTASSIUM - SERUM 3.6 mmol/L (3.5-5.1)
[2019-12-27 20:35] LABS: BILIRUBIN - TOTAL 0.47 mg/dL (0.2-1.3); PROTEIN - SERUM 7.5 g/dL (6.4-8.2)
[2019-12-28 07:28] LABS: CHOL - HDL RATIO 3.5 ratio (2.3-4.9); LDL-HDL RATIO 2.1 ratio (1.5-3.5)
[2019-12-28 08:44] VITALS: BP 124/69
[2019-12-28 20:00] VITALS: BP 97/63
[2019-12-29 08:44] VITALS: BP 159/70
[2019-12-29 14:13] VITALS: Wt 72.0 kg
--- NOTE | 2019-12-29 14:44 | PSY ---
PATIENT NAME:ROBERT CHAVEZ MEDICAL RECORD: [id number] : 47 LOCATION:[facility] Y[facility]1133 ADMISSION DATE: 12/27/19 ACCOUNT: [id number] PSYCHIATRIC EVALUATION DATE OF EVALUATION: 12/28/19 IDENTIFYING DATA: Robert Carbone is a 74-year-old male who was referred to us by the [facility]. He was brought to the Emergency Room by EMS. CHIEF COMPLAINT: Aggression. HISTORY OF PRESENT ILLNESS: Apparently, the patient has becoming increasingly aggressive with the granddaughter that he resides with. The patient denies this, but states that he does get agitated and that the misses his . Family says that he yells and screams at them; however, the patient does not recall those events. The patient does articulate that he was in the Emergency Room last night and that he voluntarily came to this unit. The patient is cooperative and is conversive. PAST MEDICAL HISTORY: The patient has a history of Alzheimer's, history of a CABG, history of hypertension. PAST PSYCHIATRIC HISTORY: The patient has had depression. The patient denies a history of PTSD. FAMILY HISTORY: Unknown. ALLERGIES: No known allergies. CURRENT MEDICATIONS: Reported medications; Plavix 75 mg p.o. daily, aspirin 81 mg p.o. daily, isosorbide dinitrate 30 mg p.o. daily, Mobic 15 mg p.o. daily, potassium citrate 10 mEq p.o. t.i.d., glucosamine and chondroitin 1 capsule p.o. b.i.d., vitamin D 10,000 mg weekly, multivitamins 1 tab p.o. daily, Lopressor 25 mg p.o. b.i.d., Pepcid 40 mg p.o. daily, Toprol-XL 25 mg p.o. daily, Neurontin 100 mg p.o. t.i.d., Pravachol 80 mg p.o. t.i.d., Namenda 10 mg p.o. daily, naloxone 50 mg p.o. daily, Aricept 10 mg p.o. every night, isosorbide mononitrate ER 30 mg p.o. daily, citalopram 40 mg p.o. daily, fish oil 2 caps p.o. b.i.d., hydrocodone/acetaminophen 10/325 two tabs p.o. q.6 hours p.r.n. for pain, MiraLax 17 g p.o. every bedtime p.r.n. for constipation, Flovent Diskus 2 puffs inhaler, Nitrostat 0.4 sublingual p.r.n. q.5 minutes p.r.n. times 3 for chest pain, Nexium 40 mg p.o. daily, Paxil 20 mg p.o. daily, calcium carbonate D3 one tab p.o. daily, ProAir 2 puffs inhaler routine q.6 hours, Pravachol 80 mg p.o. every bedtime. SOCIAL HISTORY: The patient is . Spouse 4 years ago. The patient was retired from the [employer]. He served 2 tours in [place]. The patient reports after he retired from the then he worked for [employer]. The patient reports that he did extensive traveling. He has 2 children, a daughter and a son and the patient reports that he has no relationship with those children. He states that he resides with his granddaughter. MENTAL STATUS EXAMINATION: The patient is awake, alert and oriented to person and place, but not fully to time or situation. His speech is low volume, low tone. His eye contact is fair. His posture is within normal limits. No evidence of psychomotor retardation or agitation. No tremors were noted. His thought process had some blocking. His mood is depressed. His affect is flat, narrow in range. His memory is fair for both recent and remote events. The patient denies any suicidal ideation, no plan. The patient denies homicidal. The patient denies any paranoia. No auditory or visual hallucinations. The patient does not appear to have any delusions. His general fund of knowledge is appropriate to his level of education. Digit span 5 backward, 3 forward. Judgment and insight are fair. Impulsivity is high. ASSESSMENT: AXIS I: Major vascular neurocognitive disorder. AXIS II: None. AXIS III: Hypertension, vitamin D deficiency. AXIS IV: Moderate. AXIS V: Global assessment of function is 30. PLAN: At this time, the patient is admitted to the hospital for a comprehensive medical, psychological, and social evaluation. He will be treated with both mood stabilizing and memory enhancing medication. His long-term prognosis is guarded. Dictated By: Lilia Peterson APN I have interviewed/examined the above patient and agree with these documented findings. TRANSINT:[id number] Voice Confirmation ID: [id number] DOCUMENT ID: [id number] Dictated By: LILIA PETERSON I have interviewed/examined the above patient and agree with these documented findings. MICHAEL ELLISON MD at 1444 at 1310 CC: [id number] DICTATION DATE: 12/28/19 0949 CONCERT SINGER: 12/28/19 1020 ADM IN [facility] [address] [place] [id number]
[2019-12-29 20:25] VITALS: BP 133/62
[2019-12-30 08:15] VITALS: BP 158/72
--- NOTE | 2019-12-30 12:42 | PN ---
PATIENT:RAJNI CHAVEZ MEDICAL RECORD: [id number] LOCATION:[facility] Stepan113 ADMISSION DATE: 12/27/19 PROGRESS NOTE DATE OF SERVICE: 12/29/2019 SUBJECTIVE: The patient's case was discussed with staff. He has no new complaint. OBJECTIVE: The patient denies intent to harm himself or others. He generally tolerates his medicines well. He is quite impaired cognitively with almost no insight about this lack of understanding. He continues to say that his family is stealing money from him, which may be delusional, it is unclear. At this point, I am not going to start him on an antipsychotic because if that is a delusion that is the only delusion that I am observing. I am going to place him on an antidepressant as well as Aricept. TRANSINT:[id number] Voice Confirmation ID: [id number] DOCUMENT ID: [id number] MICHAEL ELLISON MD at 1242 CC: [id number] DICTATION DATE: 12/29/19 1617 NUTRITION SERVICES WORKER: 12/29/19 2136 ADM IN [facility] [address] [place] [address]
[2019-12-30 20:40] VITALS: BP 124/73
[2019-12-31 08:54] VITALS: BP 159/65
--- NOTE | 2019-12-31 14:56 | PN ---
PATIENT:RAJNI CHAVEZ MEDICAL RECORD: [id number] LOCATION:[facility] Y[facility]113 ADMISSION DATE: 12/27/19 PROGRESS NOTE DATE OF SERVICE: 12/30/2019 SUBJECTIVE: The patient's case was discussed with staff. He has no new complaint. OBJECTIVE: The patient has not been aggressive, although he is significantly and seriously impaired cognitively. He is convinced that his family is stealing his property and becomes quite agitated whenever one of them is mentioned. He has not been aggressive over this or threatening since the weekend, but I do not think that is because his condition has improved, it is just the skill with which he is redirected and managed by the staff. He clearly has an advanced dementia. I am going to increase the dose of his Namenda. TRANSINT:[id number] Voice Confirmation ID: [id number] DOCUMENT ID: [id number] MICHAEL ELLISON MD at 1456 CC: [id number] DICTATION DATE: 12/30/19 153 MDS NURSE: 12/30/19 1752 ADM IN [facility] [address] [id number]
[2019-12-31 19:55] VITALS: BP 143/58
[2020-01-01 09:58] VITALS: BP 149/55
--- NOTE | 2020-01-01 13:21 | PN ---
PATIENT:RAJNI CHAVEZ MEDICAL RECORD: [id number] LOCATION:[facility] Y[facility]113 ADMISSION DATE: 12/27/19 PROGRESS NOTE DATE OF SERVICE: 12/31/2019 SUBJECTIVE: The patient's case was discussed with staff. He has no new complaint. OBJECTIVE: The patient is in good behavioral control with limited insight about his condition. He does tolerate his medicines well. He has not been aggressive. His is wanting him placed in an assisted living center. He does not want to go to one. At this point, I am going to maintain him on current medications. It is my opinion that he needs 77-warn-p-day supervision. I will have to work with the adoption social worker to resolve this conflict between his who wants him in the assisted living center and the patient just wants to go home. TRANSINT:[id number] Voice Confirmation ID: [id number] DOCUMENT ID: [id number] MICHAEL ELLISON MD at 1321 CC: [id number] DICTATION DATE: 12/31/19 1543 SOAP GRINDER: 12/31/19 1756 ADM IN [facility] [address] [place] [address]
[2020-01-01 20:10] VITALS: BP 107/44
[2020-01-02 08:39] VITALS: BP 133/69
[2020-01-02 20:00] VITALS: BP 127/55
[2020-01-03 09:05] VITALS: BP 129/72
[2020-01-03 20:00] VITALS: BP 134/68
[2020-01-04 08:54] VITALS: BP 150/61
[2020-01-04 20:00] VITALS: BP 130/55
[2020-01-05 08:29] VITALS: BP 138/60
--- NOTE | 2020-01-05 14:02 | PN ---
PATIENT:RAJNI CHAVEZ MEDICAL RECORD: [id number] LOCATION:[facility]113 ADMISSION DATE: 12/27/19 PROGRESS NOTE DATE OF SERVICE: 01/01/2020 SUBJECTIVE: The patient's case was discussed with staff. He has no new complaint. OBJECTIVE: The patient is in good behavioral control. He has poor insight about his condition. He is still very angry about his circumstances, but he is not out of control. ASSESSMENT: Vascular dementia. PLAN: The patient can be transitioned to the assisted living center as soon as those arrangements are made. Long-term prognosis is guarded. TRANSINT:[id number] Voice Confirmation ID: [id number] DOCUMENT ID: [id number] MICHAEL ELLISON MD at 1402 CC: [id number] DICTATION DATE: 01/01/20 1601 COMIC WRITER: 01/01/20 1630 ADM IN [facility] [address] [place] [address]
[2020-01-05] MEDS ORDERED: CELEXA20 MG PO (14:12)
[2020-01-05] MEDS ORDERED: NAMENDA5 MG PO (14:13)
[2020-01-05 20:11] VITALS: BP 142/72
[2020-01-06 08:47] VITALS: BP 131/78
--- NOTE | 2020-01-06 15:01 | PN ---
PATIENT:RAJNI CHAVEZ MEDICAL RECORD: [id number] LOCATION:[facility] Y[facility]113 ADMISSION DATE: 12/27/19 PROGRESS NOTE DATE OF SERVICE: 01/05/2020 SUBJECTIVE: The patient's case was discussed with staff. He has no new complaint. OBJECTIVE: The patient denies intent to harm himself or others. He is tolerating his medicines well. ASSESSMENT: Dementia. PLAN: Current medicines have been reviewed and will be maintained. I anticipate he can be transitioned out of the hospital tomorrow. TRANSINT:[id number] Voice Confirmation ID: [id number] DOCUMENT ID: [id number] MICHAEL ELLISON MD at 1501 CC: [id number] DICTATION DATE: 01/05/201711 GLASSWARE DEFECT REPAIRER: 01/05/20 1735 ADM IN [facility] [address] [place] [address]
== END 2020-01-06 14:22 | disposition home or self-care (01) | DRG 57 ==
LOC: D.ER 19:56 → D.PSYCH 22:07
PROVIDERS: Family Medicine; ADMIT Psychiatry & Neurology Psychiatry; ATTEND Psychiatry & Neurology Psychiatry
DX: G30.9 Alzheimer's disease, unspecified (principal); F01.51 Vascular dementia, unspecified severity, with behavioral disturbance; F02.81 Dementia in other diseases classified elsewhere, unspecified severity, with behavioral disturbance; I25.10 Atherosclerotic heart disease of native coronary artery without angina pectoris; N28.9 Disorder of kidney and ureter, unspecified; D33.1 Benign neoplasm of brain, infratentorial; I10 Essential (primary) hypertension; M19.91 Primary osteoarthritis, unspecified site; K21.9 Gastro-esophageal reflux disease without esophagitis; E55.9 Vitamin D deficiency, unspecified; K59.01 Slow transit constipation; E78.2 Mixed hyperlipidemia

== ENCOUNTER 2020-03-13 10:58 | Inpatient (IN) | payer MEDICARE ==
[~2020-03-13] VITALS: Ht 177.8 cm; Wt 77.0 kg
[~2020-03-13 10:58] MED LIST changes: +CELEXA20 MG PO; +CELEXA40 MG PO; +DONEPEZIL HCL10 MG PO; +GABAPENTIN100 MG PO; +ISOSORBIDE MONO30 M1 PO; +NAMENDA10 MG PO; +NAMENDA5 MG PO; +PEPCID40 MG PO; +PRAVACHOL40 MG PO; +TOPROL XL25 MG PO
--- NOTE | 2020-03-13 12:00 | NUR ---
RECEIVED TO ALF UNIT AMBULATORY FROM [facility]. VITAL SIGNS AND WEIGHT TAKEN. CALLED HIS POA GRANDDAUGHTER CHARITY RIOS FOR VERBAL CONSENT TO TREAT. CODE WORD: 9738.
[2020-03-13 18:32] VITALS: BP 132/61; BMI 24.8
[2020-03-13 20:00] VITALS: BP 151/65
--- NOTE | 2020-03-14 00:09 | NUR ---
B) Patient is alert and oriented to person, very social with other patients, calm and cooperative with staff, I) Administered scheduled medications as ordered, monitored for safety R) mediation compliant, sleeping quietly in his bed, P) Continue plan of care,
[2020-03-14 06:23] LABS: HEMATOCRIT 37.7 % (42.0-54.0); HEMOGLOBIN 12.1 g/dL (13.5-17.5); LYMPHOCYTES 23.8 % (15-50); MCH 30.3 pg (26.0-34.0); MCHC 32.1 g/dL (31.0-37.0); MCV 94.5 fL (80.0-100.0); MEAN PLATELET VOLUME 9.2 fL (7.4-10.4); PLATELET COUNT 231 10x3/uL (130-400); RBC 3.99 10x6/uL (4.20-6.10); RDW 13.5 % (11.5-14.5); WBC 7.9 10x3/uL (4.8-10.8)
[2020-03-14 06:42] LABS: ALBUMIN 3.6 g/dL (3.4-5.0); ANION GAP 9.7 mmol/L (8-16); BILIRUBIN - TOTAL 0.23 mg/dL (0.2-1.3); CALCIUM 8.9 mg/dL (8.5-10.1); CARBAMAZEPINE (TEGRETOL) 3.7 ug/mL (4.0-12.0); CARBON DIOXIDE 30.5 mmol/L (21.0-32.0); CHOL - HDL RATIO 2.6 ratio (2.3-4.9); CREATININE - SERUM 2.3 mg/dL (0.6-1.3); LDL-HDL RATIO 1.4 ratio (1.5-3.5); POTASSIUM - SERUM 4.2 mmol/L (3.5-5.1)
[2020-03-14 12:57] VITALS: BP 135/56
--- NOTE | 2020-03-14 15:01 | NUR ---
RECEIVED THIS AM UP IN CHAIR IN ON LICENSE OF [facility].ORIENTED TO SELF.POOR INSITE TO WHY HE IS HERE.COMPLIANT WITH STAFF AND MEDS.HAS DEVELOPED FRIENDSHIP WITH FEMALE PEER.NO INAPPROPRIATE BEHAVIOR OBSERVED.WILL CONTINUE WITH CURRENT PLAN OF CARE,MONITOR FOR CHANGES AND SAFETY.
[2020-03-14 20:00] VITALS: BP 116/56
--- NOTE | 2020-03-14 20:35 | NUR ---
RECEIVED IN DAYROOM. SITTING IN A CHAIR WITH PEERS AT HIS SIDE. CALM AND COOPERATIVE WITH CARE AND ASSESSMENT. ACTIVE IN GROUP. NO SIGNS OF AGGRESSION. REDIRECT AND REORIENT NEEDED. CONTINUES TO SIT CALMLY IN DAYROOM. CONTINUE PLAN OF CARE.
[2020-03-15 00:50] LABS: BILIRUBIN NEGATIVE (NEGATIVE); GLUCOSE NEGATIVE (NEGATIVE); KETONE NEGATIVE (NEGATIVE); NITRITE NEGATIVE (NEGATIVE); SPECIFIC GRAVITY 1.005 (1.005-1.020); UROBILINOGEN NORMAL (NORMAL)
[2020-03-15 10:28] VITALS: BP 145/59
[2020-03-15 10:44] VITALS: Ht 177.8 cm; Wt 77.0 kg
--- NOTE | 2020-03-15 12:00 | NUR ---
RECEIVED IN HALLWAY OUTSIDE OF NURSES STATION. CALM AND COOPERATIVE WITH CARE AND ASSESSMENT. NO AGGRESSION. REDIRECT AND REORIENT NEEDED. EATING LUNCH AT THIS TIME. CONTINUE PLAN OF CARE.
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
[2020-03-15 20:38] VITALS: BP 141/68
--- NOTE | 2020-03-15 20:53 | NUR ---
RECEIVED IN DAYROOM. SITTING IN A CHAIR WITH PEERS AT HIS SIDE. SOCIAL WITH PEERS. CALM AND COOPERATIVE WITH CARE AND ASSESSMENT. NO SIGNS OF AGGRESSION. REDIRECT AND REORIENT NEEDED. CONTINUES TO SIT CALMLY IN DAYROOM. CONTINUE PLAN OF CARE.
[2020-03-16 08:07] VITALS: BP 119/71
--- NOTE | 2020-03-16 12:00 | NUR ---
RECEIVED IN HALLWAY OUTSIDE OF NURSES STATION. CALM AND COOPERATIVE WITH CARE AND ASSESSMENT. NO AGGRESSION NOTED. REDIRECT AND REORIENT NEEDED. EATING AT THIS TIME. CONTINUE PLAN OF CARE.
--- NOTE | 2020-03-16 15:31 | PN ---
PATIENT:RAJNI CHAVEZ MEDICAL RECORD: [id number] LOCATION:[facility] Ying112 ADMISSION DATE: 03/13/20 PROGRESS NOTE DATE OF SERVICE: 03/15/2020 SUBJECTIVE: The patient's case was discussed with staff. He has no new complaint. OBJECTIVE: The patient is partially oriented. He believes that he currently is at the [facility]. He has no recollection for the events that precipitated this admission. He has not been aggressive. IMPRESSION: Dementia. PLAN: The patient's Celexa is going to be reduced to 20 mg daily. I do not believe the current dose is clinically indicated and it is only raising the possibility of potential side effects. If this level of improvement continues, I anticipate he can be transitioned out of the hospital soon. TRANSINT:[id number] Voice Confirmation ID: [id number] DOCUMENT ID: [id number] MICHAEL ELLISON MD at 1531 CC: [id number] DICTATION DATE: 03/15/20 1550 ELECTRICAL LINESWORKER: 03/16/[address] [facility] [address] [place] [address]
[2020-03-16 19:24] VITALS: BP 147/67
--- NOTE | 2020-03-17 00:24 | NUR ---
RECEIVED IN DAYROOM. WALKING ABOUT SOCAILIZING WITH PEERS. CALM AND COOPERATIVE WITH CARE AND ASSESSMENT. NO SIGNS OF AGGRESSION. REDIRECT AND REORIENT NEEDED. RESTING IN BED WITH EYES CLOSED AT THIS TIME. CONTINUE PLAN OF CARE.
[2020-03-17 07:56] VITALS: BP 110/61
--- NOTE | 2020-03-17 10:36 | NUR ---
Nutrition Follow-up: Diet: Regular PO intake: ~93% average x last 9 meals No BM recorded since admit. WT: 170# (03/14/20); Admit WT: 173# (03/13/20) Meds reviewed, no new labs. Recommend continue current diet. RD following.
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
[2020-03-17] MEDS ORDERED: CELEXA20 MG PO (15:58)
[2020-03-17] MEDS ORDERED: VITAMIN D5000 UNI1 PO (15:59)
--- NOTE | 2020-03-17 16:34 | NUR ---
PT IS AWAKE AND ALERT TO PERSON ONLY. CALM AND COOPERATIVE WITH ASSESSMENT. PRESCRIBED MEDS PROVIDED ORDERED. MED COMPLIANT. NO AGGRESSION NOTED. WILL CPOC.
[2020-03-17 20:47] VITALS: BP 142/52
--- NOTE | 2020-03-17 22:39 | NUR ---
B.) PT IS ALERT AND ORIENTED TO SELF ONLY. SHE HAS POOR INSIGHT INTO HER SITUATION. SHE IS CALM AND COOPERATIVE WITH STAFF. SHE IS ABLE TO AMBULATE WITH ASSIST. SHE IS SOCIALIZING WITH PEERS. I.) PROVIDED PM MEDICATIONS PRESCRIBED. REDIRECT OFTEN. R.) COMPLIANT WITH ALL MEDICATIONS. EASY TO REDIRECT. P.) WILL CONTINUE TO MONITOR.
--- NOTE | 2020-03-17 22:47 | NUR ---
B.) PT IS ALERT AND ORIENTED TO SELF AND SITUATION. HE IS ABLE TO AMBULATE WITHOUT ASSIT. HE IS OBSERVED SOCIALIZING WITH PEERS. HE IS CALM AND COOPERATIVE WITH STAFF. HE IS ABLE TO MAKE HIS NEEDS KNOWN. I.) PROVIDED PM MEDICATIONS PRESCRIBED. REDIRECT NEEDED. R.) COMPLIANT WITH ALL MEDICATIONS. EASY TO REDIRECT. P.) WILL CONTINUE TO MONITOR.
[2020-03-18 09:51] VITALS: BP 116/54
--- NOTE | 2020-03-18 11:20 | NUR ---
PT SOCIALIZING WITH PEERS AT THIS TIME. PT IS CALM AND COOPERATIVE. PT CAN MAKE NEEDS KNOWN. PT AMBULATES. PT IS COMPLIANT WITH MEDS, VITALS AND ASSESSMENTS. NO ACUTE DISTRESS NOTED. PT IS DISCHARGING TO [place] THIS SHIFT. WILL CONT PLAN OF CARE.
--- NOTE | 2020-03-18 12:45 | NUR ---
CALLED REPORT TO [facility] TO NURSE [place]. PAPERWORK FAXED TO FACILITY AND PAPER COPY WILL BE SENT WITH PT AT TIME OF DISCHARGE. NURSE WILL SEND SIGNED COPY OF MED LIST THIS AFTERNOON. WENT OVER MEDICATION CHANGES. PT BELONGINGS PACKED WELL.
--- NOTE | 2020-03-18 14:45 | NUR ---
PT DISCHARGE TO [place] THIS SHIFT. PT TOLERATED DISCHARGE WELL. PT AMBULATED TO FACILITY [facility]. PAPERWORK FAXED TO FACILITY AND PAPER COPY SENT WITH PT AT TIME OF DISCHARGE. PERSONAL BELONGINGS SENT WITH PT.
--- NOTE | 2020-03-18 15:32 | PN ---
PATIENT:RAJNI CHAVEZ MEDICAL RECORD: [id number] LOCATION:[facility] Ying112 ADMISSION DATE: 03/13/20 PROGRESS NOTE DATE OF SERVICE: 03/17/2020 SUBJECTIVE: The patient's case was discussed with staff. He has no new complaint. OBJECTIVE: The patient is confused and disorganized, but not openly aggressive in any way. ASSESSMENT: Vascular dementia. PLAN: The patient will be transitioned out of the hospital and back to the alf tomorrow. Followup will be with his primary care physician. TRANSINT:[id number] Voice Confirmation ID: [id number] DOCUMENT ID: [id number] MICHAEL ELLISON MD at 1532 CC: [id number] DICTATION DATE: 03/17/20 1557 WEB SIZER: 03/18/20 0138 ADM IN [facility] [address] [place] [address]
--- NOTE | 2020-03-19 09:52 | PN ---
PATIENT:RAJNI CHAVEZ MEDICAL RECORD: [id number] LOCATION:[facility] Ying112 ADMISSION DATE: 03/13/20 PROGRESS NOTE DATE OF SERVICE: 03/18/2020 SUBJECTIVE: The patient's case was discussed with staff. He has no new complaint. OBJECTIVE: The patient is confused, but pleasant. He still thinks he is at [place], although today he is going to be transferred to [place]. ASSESSMENT: Vascular dementia. PLAN: The patient will be maintained on current medicines, which I have reviewed. He will be transitioned out of the hospital today. Followup will be with his primary care physician. TRANSINT:[id number] Voice Confirmation ID: [id number] DOCUMENT ID: [id number] MICHAEL ELLISON MD at 0952 CC: [id number] DICTATION DATE: 03/18/20 1639 GIMP BUTTONHOLE MACHINE OPERATOR: 03/18/20 2330 DIS IN 03/18/20 [facility] [address] [place] [address]
== END 2020-03-18 14:25 | DRG 884 ==
LOC: D.PSYCH 10:58
PROVIDERS: ADMIT Psychiatry & Neurology Psychiatry; ATTEND Psychiatry & Neurology Psychiatry
DX: F01.51 Vascular dementia, unspecified severity, with behavioral disturbance (principal); F33.1 Major depressive disorder, recurrent, moderate; I25.10 Atherosclerotic heart disease of native coronary artery without angina pectoris; I10 Essential (primary) hypertension; M19.91 Primary osteoarthritis, unspecified site; K21.9 Gastro-esophageal reflux disease without esophagitis; K59.01 Slow transit constipation; E78.5 Hyperlipidemia, unspecified

== ENCOUNTER 2020-03-23 09:14 | Inpatient (IN) | payer MEDICARE ==
[~2020-03-23 09:14] MED LIST changes: +VITAMIN D5000 UNI1 PO
[2020-03-23 11:19] LABS: BASOPHILS 0.4 % (0-2); EOSINOPHILS 2.3 % (0-7); HEMATOCRIT 35.3 % (42.0-54.0); HEMOGLOBIN 11.5 g/dL (13.5-17.5); IMMATURE GRANULOCYTES 0.1 % (0-5); LYMPHOCYTES 12.2 % (15-50); MCH 30.8 pg (26.0-34.0); MCHC 32.6 g/dL (31.0-37.0); MCV 94.6 fL (80.0-100.0); MEAN PLATELET VOLUME 9.5 fL (7.4-10.4); PLATELET COUNT 233 10x3/uL (130-400); RBC 3.73 10x6/uL (4.20-6.10); RDW 13.8 % (11.5-14.5); WBC 7.5 10x3/uL (4.8-10.8)
[2020-03-23 12:34] LABS: ALBUMIN 3.9 g/dL (3.4-5.0); ALKALINE PHOSPHATASE 103 U/L (30-120); ALT (SGPT) 23 U/L (10-68); CALC OSMOLALITY 287 mosm/kg (275-300); CALCIUM 8.7 mg/dL (8.5-10.1); CARBON DIOXIDE 27.4 mmol/L (21.0-32.0); CHLORIDE - SERUM 104 mmol/L (98-107); CHOL - HDL RATIO 2.5 ratio (2.3-4.9); CHOLESTEROL, TOTAL 191 mg/dL (0-200); CREATININE - SERUM 2.4 mg/dL (0.6-1.3); GLUCOSE 120 mg/dL (74-106); HDL CHOLESTEROL 78 mg/dL (32-96); LDL CHOLESTEROL 94 mg/dL (0-100); LDL-HDL RATIO 1.2 ratio (1.5-3.5); POTASSIUM - SERUM 4.5 mmol/L (3.5-5.1); PROTEIN - SERUM 6.9 g/dL (6.4-8.2); SODIUM 139 mmol/L (136-145); THYROID STIMULATING HORMONE 1.61 uIU/mL (0.36-3.74); TRIGLYCERIDE 97 mg/dL (30-200); UREA NITROGEN 37 mg/dL (7-18); eGFR NON AFRICAN AMERICAN 28 mL/min (90-120)
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
[2020-03-23 15:14] VITALS: BP 138/62; BMI 25.1
[2020-03-23 19:56] VITALS: BP 164/74
--- NOTE | 2020-03-23 22:43 | NUR ---
RECEIVED IN DAYROOM. SITTING IN A CHAIR WITH PEERS AT HIS SIDE. CALM AND COOPERATIVE WITH CARE AND ASSESSMENT. SOCIAL WITH PEERS. NO SIGNS OF AGGRESSION. REDIRECT AND REORIENT NEEDED. RESTING IN BED WITH EYES CLOSED AT THIS TIME. CONTINUE PLAN OF CARE.
[2020-03-24 06:10] LABS: RAPID PLASMA REAGIN Non Reactive (Non Reactive)
[2020-03-24 08:27] LABS: BILIRUBIN NEGATIVE (NEGATIVE); GLUCOSE NEGATIVE (NEGATIVE); KETONE NEGATIVE (NEGATIVE); NITRITE NEGATIVE (NEGATIVE); UROBILINOGEN NORMAL (NORMAL)
[2020-03-24 09:57] VITALS: BP 104/51
[2020-03-24 11:19] VITALS: Wt 78.6 kg
--- NOTE | 2020-03-24 15:00 | NUR ---
RECEIVED IN HALLWAY SITTING IN CHAIR. CALM AND COOPERATIVE WITH CARE AND ASSESSMENT. NO AGGRESSIVE BEHAVIOR. REDIRECT AND REORIENT NEEDED. MEDICATION COMPLIANT. CONTINUE PLAN OF CARE.
--- NOTE | 2020-03-24 15:36 | PSY ---
PATIENT NAME:RAJNI CHAVEZ MEDICAL RECORD: [id number] : 47 LOCATION:[facility] ADMISSION DATE: 03/23/20 ACCOUNT: [id number] PSYCHIATRIC EVALUATION DATE OF EVALUATION: 03/23/20 IDENTIFYING DATA: The patient is 74 years old and he is admitted to the hospital on a voluntary basis. HISTORY OF PRESENT ILLNESS: The patient is very well known to me from previous and recent clinical contact. The patient was just discharged from this facility 5 days ago. At that time, his behaviors were good and he was referred to the assisted living center. He now returns with them reporting that he has been violent and aggressive. When asked about this, he has no recollection of it and is once again calm and cooperative. PAST MEDICAL HISTORY: Significant for Alzheimer's disease and a history of coronary artery bypass grafting and hypertension. PAST PSYCHIATRIC HISTORY: Significant for depression and the dementia. FAMILY HISTORY: Unknown. ALLERGIES: No known drug allergies. CURRENT MEDICATIONS: Please see the admissions MAR. SOCIAL HISTORY: The patient is . His several years ago. He is retired, active duty [employer]. He was in [place]. He apparently worked for [employer] after he left the service. He has 2 children and has little contact with them. MENTAL STATUS EXAMINATION: The patient is awake, alert and oriented to person and place, but not to time or situation. His mood is euthymic. His affect appropriate. Thought processes are goal directed. Memory, concentration, and abstraction abilities are impaired and he denies that he would seek to harm himself or others as well as psychotic symptoms. ASSESSMENT AXIS I: Major vascular neurocognitive disorder. AXIS II: None. AXIS III: Hypertension and coronary artery disease. AXIS IV: Moderate stressors. AXIS V: Global assessment of functioning is 35. PLAN: The patient is admitted to the hospital secondary to aggressive behavior at the assisted living center. This is a repeat of previous behaviors and in my opinion, the primary goal of this treatment will be to seek placement in a more restrictive environment. He will be maintained on the same medications that he was discharged on 5 days ago. In my opinion, the primary issue here is one of the appropriate placement and not so much one of him requiring extensive pharmacologic intervention. TRANSINT:[id number] Voice Confirmation ID: [id number] DOCUMENT ID: [id number] MICHAEL ELLISON MD at 1536 CC: [id number] DICTATION DATE: 03/23/20 1608 HEALTH CARE SOCIAL WORKER: 03/23/20 1856 ADM IN [place] [id number] [place] [id number]
[2020-03-24 20:00] VITALS: BP 139/54
--- NOTE | 2020-03-24 23:33 | NUR ---
PATIENT IS CONFUSED. PLEASANT BUT CONFUSED, HE GETS LOST GOING TO HIS ROOM SEVERAL TIMES. COMPLIANT WITH MEDS. NO ADVERSE REACTION NOTED. WILL FOLLOW POC
[2020-03-25 10:31] VITALS: BP 108/67
--- NOTE | 2020-03-25 12:17 | PN ---
PATIENT:RAJNI CHAVEZ MEDICAL RECORD: [id number] LOCATION:[facility] ADMISSION DATE: 03/23/20 PROGRESS NOTE DATE OF SERVICE: 03/24/2020 SUBJECTIVE: The patient's case was discussed with staff. He has no new complaint. OBJECTIVE: The patient is in good behavioral control with poor insight about his situation. He has not been aggressive today. ASSESSMENT: Vascular dementia. PLAN: In my view the patient's environment is not sufficiently supervised. I am going to recommend a higher level of care. I do not think that significant changes in his pharmacologic regimen is going to be helpful. TRANSINT:[id number] Voice Confirmation ID: [id number] DOCUMENT ID: [id number] MICHAEL ELLISON MD at 1217 CC: [id number] DICTATION DATE: 03/24/20 1601 PROCESSING SPECIALIST: 03/25/20 0051 ADM IN [facility] [address] [place] [address]
--- NOTE | 2020-03-25 16:39 | NUR ---
PATIENT IS PLEASANTLY CONFUSED. SOCIALIZES WITH STAFF AND PEERS. REDIRECT AND REORIENT NEEDED. MEDICATION COMPLIANT. WILL CONTINUE WITH PLAN OF CARE.
[2020-03-25 20:04] VITALS: BP 120/68
--- NOTE | 2020-03-25 20:26 | NUR ---
RECEIVED PATIENT IN DAYROOM, EATING A SNACK, HE IS PLEASANT, NO AGGRESSION, DENIES SUICIDIAL IDEATIONS, CONFUSED, COMPLIANT WITH MEDS. HE CAN PERFORM HIS OWN ADL'S. WILL FOLLOW POC
--- NOTE | 2020-03-26 08:33 | NUR ---
The patient is pleasant and calm. He ambulates independently. He is quiet. He has poor insight into his situation. He denies S.I. this am, he has not shown any aggression or exit seeking behaviors this am. Provide prescribed meds. Continue POC.
[2020-03-26 09:55] VITALS: BP 138/59
[2020-03-26 20:00] VITALS: BP 134/47
--- NOTE | 2020-03-27 03:55 | NUR ---
B) Patient is alert and oriented to person, forgets where he is at frequently, social with peers, I) Administered scheduled medications as ordered, redirected as needed, R) Mediation compliant, sleeping quietly in his bed now, P) Continue plan of care.
[2020-03-27 08:24] VITALS: BP 140/58
--- NOTE | 2020-03-27 11:00 | NUR ---
B) PATIENT IS ALERT TO SELF ONLY WITH CONFUSION NOTED. CALM AND COOPERATIVE WITH CARE AND ASSESSMENT. I) ADMINISTER PRESCRIBED MEDICATIONS. REDIRECT AND REORIENT NEEDED. R) COMPLIANT WITH TAKING MEDICATIONS. P) CONTINUE PLAN OF CARE.
[2020-03-27 20:02] VITALS: BP 125/56
--- NOTE | 2020-03-27 22:03 | NUR ---
B.) PT IS ALERT AND ORIENTED TO SELF ONLY. HE REALTED THAT HE WANTS TO LEAVE HERE. HE IS ABLE TO AMBULATE ON HIS OWN WITHOUT ASSIST. HE IS OBSERVED SOCIALIZING WITH PEERS. HE IS CALM AND COOPERATIVE WITH STAFF. I.) PROVIDED PM MEDICATIONS PRESCRIBED. REDIRECT NEEDED. R.) COMPLIANT WITH ALL MEDICATIONS. EASY TO REDIRECT. P.) WILL CONTINUE TO MONITOR.
[2020-03-28 13:48] VITALS: BP 125/72
--- NOTE | 2020-03-28 18:29 | NUR ---
ORIENTED TO SELF ONLY.COMPLIANT WITH STAFF AND MEDS.NO BEHAVIORS OBSERVED.QUITE,HAS KEPT MUCH TO HIMSELF TODAY.WILL CONTINUE WITH CURRENT PLAN OF CARE,MONITOR FOR CHANGES AND SFETY.
--- NOTE | 2020-03-28 19:18 | PN ---
PATIENT:RAJNI CHAVEZ MEDICAL RECORD: [id number] LOCATION:[facility] ADMISSION DATE: 03/23/20 PROGRESS NOTE DATE OF SERVICE: 03/25/2020 SUBJECTIVE: The patient's case was discussed with staff. He has no new complaint. OBJECTIVE: The patient is in good behavioral control. He has limited insight about his situation. ASSESSMENT: Vascular dementia. PLAN: Current medicines have been reviewed and will be maintained. The patient is in need of more restrictive environment than the assisted living center and one with more redirection and supervision. I would think that when that can be arranged after this holiday weekend that he could reasonably be discharged. TRANSINT:[id number] Voice Confirmation ID: [id number] DOCUMENT ID: [id number] MICHAEL ELLISON MD at 1918 CC: [id number] DICTATION DATE: 03/25/20 1424 SIZER MACHINE: 03/25/20 1832 ADM IN [facility] [address] [place] [address]
[2020-03-28 20:24] VITALS: BP 121/50
--- NOTE | 2020-03-28 20:30 | NUR ---
RECEIVED IN DAYROOM. SITTING IN A CHAIR WITH PEERS AT HIS SIDE. SOPCIAL. CALM AND COOPERATIVE WITH CARE AND ASSESSMENT. NO SIGNS OF AGGRESSION. NO STATEMENTS OF SELF HARTM VOICED. REDIRECT AND REORIENT NEEDED. CONTINUES TO SIT CALMLY IN DAYROOM. CONTINUE PLAN OF CARE.
[2020-03-29 08:41] VITALS: BP 106/66
--- NOTE | 2020-03-29 09:44 | NUR ---
The patient is awake, but he oriented to self only. He has poor insight into his situation. He has not shown any aggression, he denies suicidal ideations. Provide prescribed meds. The patient is compliant with meds. Continue POC.
--- NOTE | 2020-03-29 11:02 | NUR ---
Nutrition Follow-up: Diet: Regular PO intake: 100% Last BM: none recorded since admit (03/25/20- per MD notes) Wt: 170.8# (03/28/20); Admit Wt: 175# (03/23/20) Meds reviewed, no new labs. Recommend continue current diet. RD following.
--- NOTE | 2020-03-29 18:45 | NUR ---
PT STATED TO [facility] " I WANT OUT THIS WINDOW TO COMIT SUICIDE." PT REDIRECTED AT THIS TIME. WITH STAFF FOR SAFETY.
[2020-03-29 20:10] VITALS: BP 121/51
--- NOTE | 2020-03-29 22:46 | NUR ---
RECEIVED IN DAYROOM. SITTING IN A CHAIR WITH PEERS AT HIS SIDE. CALM AND COOPERATIVE WITH CARE AND ASSESSMENT. NO STATEMENTS OF SELF HARM VOICED AT THIS TIME. ENCOURAGE TO EXPRESS NEEDS. AT NURSES STATION WITH STAFF TALKING ABOUT HIS DISEASE PROCESS AT THIS TIME. ENCOURAGE TO EXPRESS NEEDS. CONTINUE PLAN OF CARE.
[2020-03-30 11:40] VITALS: BP 115/52
--- NOTE | 2020-03-30 12:22 | NUR ---
RECEIVED IN HALLWAY OUTSIDE OF NURSES STATION. CALM AND COOPERATIVE WITH CARE AND ASSESSMENT. DENIES SUICIDAL IDEATION AT THIS TIME. REDIRECT AND REORIENT NEEDED. EATING AT THIS TIME. CONTINUE PLAN OF CARE.
[2020-03-30 20:53] VITALS: BP 115/58
--- NOTE | 2020-03-30 23:19 | NUR ---
RECEIVED IN DAYROOM. WALKING ABOUT. CALM AND COOPERATIVE WITH CARE AND ASSESSMENT. STATES HE IS DEPRESSED BECAUSE HE DOES NOT WANT TO GO BACK TO THE SKILLED NURSING. PROVIDE ONE ON ONE TIME TO EXPRESS FEELINGS. RESTING IN BED WITH EYES CLOSED AT THIS TIME. CONTINUE PLAN OF CARE.
[2020-03-31 09:19] VITALS: BP 101/61
--- NOTE | 2020-03-31 11:47 | NUR ---
The patient is awake and alert. He is pleasant and he is interacting with staff and some peers. He is calm. He has not been inappropriate in behavior today. He has poor insight into his situation. Provide prescribed meds. The patient is compliant with meds. Continue POC.
--- NOTE | 2020-03-31 14:49 | NUR ---
Nutrition Follow-up: Diet: Regular PO intake: 100% x all meals Last BM: none recorded since admit x 8 days now Wt: 170.8# (03/28/20); Admit Wt: 175# (03/23/20) Meds reviewed. No new labs. Recommend increase in bowel regimen to promote BM regularity and help prevent decreased appetite. Recommend continue current diet. RD following.
--- NOTE | 2020-03-31 14:50 | NUR ---
The patient refuses his meds at this time. He says he does not want to take his meds and he would just assume and he says "I would like to just be left alone." He is sitting in the dining room in the corner away from others. Myrna came today and evaluated him. The patient asked what time he was leaving today. Staff said "No, not today." He has been upset since then.
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
[2020-03-31 20:03] VITALS: BP 120/57
--- NOTE | 2020-04-01 03:52 | NUR ---
B.) PT IS ALERT AND ORIENTED TO SELF ONLY. HE IS CALM AND COOPERATIVE WITH STAFF. HE IS WITHDRAWN AND SELF ISOLATING. HE IS ABLE TO AMBULATE WITHOUT ASSIST. NO AGGRESSION NOTED. I.) PROVIDED PM MEDICATIONS PRESCRIBED. REDIRECT NEEDED. R.) COMPLIANT WITH ALL MEDICATIONS. EASY TO REDIRECT. P.) WILL CONTINUE TO MONITOR.
[2020-04-01 09:36] VITALS: BP 117/64
[2020-04-01 09:42] VITALS: BP 117/64
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
[2020-04-01 20:19] VITALS: BP 92/44
--- NOTE | 2020-04-02 01:15 | NUR ---
B.) PT IS ALERT AND ORIENTED TO SELF ONLY. HE IS ABLE TO VOICE NEEDS AND WANTS AND AMBULATE WITHOUT ASSIST. HE IS CALM AND COOPERATIVE WITH STAFF. HE IS WITHDRAWN AND SELF ISOLATING. I.) PROVIDED PM MEDICATIONS PRESCRIBED. REDIRECT OFTEN. R.) COMPLIANT WITH ALL MEDICATIONS. EASY TO REDIRECT. P.) WILL CONTINUE TO MONITOR.
--- NOTE | 2020-04-02 11:57 | NUR ---
The patient is awake and alert he is pleasant today. He is joking with staff and has asked when he may get to leave. He has not shown any aggression today. Provide prescribed meds. The patient is interacting with other patients and he has not been flirtatious with other patients he did say the nurses here are all pretty so he may like to just stay here. Continue POC.
[2020-04-02 14:10] VITALS: BP 127/63
[2020-04-02 20:08] VITALS: BP 104/55
--- NOTE | 2020-04-02 23:12 | NUR ---
PATIENT IS VERY AGITATED. HE WAS GIVEN HALDOL AND ATIVAN PRN FOR STANDING IN THE BATHROOM IN THE DARK SAYING "STAY OUT OF MY WORLD". BIZARRE BEHAVIOR. GOODL RESULTS. WILL FOLLOW POC
--- NOTE | 2020-04-03 08:05 | NUR ---
The patient is calm and pleasant, he has poor insight into his situation, he has no recall that he got upset yesterday and received a prn injection. He ambulates independently. He has not shown any aggression this am. Provide prescribed meds. The patient is compliant with meds. Continue POC.
[2020-04-03 09:54] VITALS: BP 160/72
[2020-04-03 20:00] VITALS: BP 99/58
--- NOTE | 2020-04-03 21:45 | NUR ---
RECEIVED IN DAYROOM. SITTING IN A CHAIR WITH PEERS AT HIS SIDE. CALM AND COOPERATIVE WITH CARE AND ASSESSMENT. NO SIGNS OF AGGRESSION. REDIRECT AND REORIENT NEEDED. CONTINUES TO SIT CALMLY IN DAYROOM. CONTINUE PLAN OF CARE.
[2020-04-04 09:18] VITALS: BP 133/62
--- NOTE | 2020-04-04 09:43 | NUR ---
The patient is awake and he is oriented to self, he has poor insight into his situation. He is pleasant and calm and has not shown any aggression this am. He is speaking to one of the female patient's and telling her how special he thinks she is. Provide prescribed meds. The patient is compliant with meds. Monitor for mood and behavior changes. Continue POC.
--- NOTE | 2020-04-04 19:59 | NUR ---
RECEIVED IN DAYROOM. SITTING IN A CHAIR WITH PEERS AT HER SIDE. SOCIAL. CALM AND COOPERATIVE WITH CARE AND ASSESSMENT. NO SIGNS OF AGGRESSION. NO STATEMENTS OF SELF HARM VOICED THIS EVENING. ENCOURAGE TO EXPRESS NEEDS. CONTINUES TO SIT CALMLY IN DAYROOM CONTINUE PLAN OF CARE.
[2020-04-04 20:06] VITALS: BP 119/53
--- NOTE | 2020-04-05 12:00 | NUR ---
RECEIVED IN HALLWAY OUTSIDE OF NURSES STATION. CALM AND COOPERATIVE WITH CARE AND ASSESSMENT. NO BEHAVIORS NOTED. REDIRECT AND REORIENT NEEDED. EATING AT THIS TIME. CONTINUE PLAN OF CARE.
[2020-04-05 19:51] VITALS: BP 132/68
--- NOTE | 2020-04-05 20:59 | NUR ---
RECEIVED IN DAYROOM. SITTING IN A CHAIR WITH PEERS AT HER SIDE. CALM AND COOPERATIVE WITH CARE AND ASSESSMENT. NO SIGNS OF AGGRESSION. REDIRECT AND REORIENT NEEDED. CONTINUES TO SIT CALMLY IN DAYROOM. CONTINUE PLAN OF CARE.
[2020-04-06 10:00] VITALS: BP 134/69
--- NOTE | 2020-04-06 12:00 | NUR ---
RECEIVED IN HALLWAY OUTSIDE OF NURSES STATION. CALM AND COOPERATIVE WITH CARE AND ASSESSMENT. NO BEHAVIORS. REDIRECT AND REORIENT NEEDED. EATING AT THIS TIME. CONTINUE PLAN OF CARE.
--- NOTE | 2020-04-06 15:08 | PN ---
PATIENT:RAJNI CHAVEZ MEDICAL RECORD: [id number] LOCATION:[facility] ADMISSION DATE: 03/23/20 PROGRESS NOTE DATE OF SERVICE: 04/05/2020 SUBJECTIVE: The patient's case was discussed with staff. He has no new complaint. OBJECTIVE: The patient denies that he would seek to harm himself or others. He is tolerating his medications reasonably well. He is poorly oriented. ASSESSMENT: Vascular dementia. PLAN: The patient will be treated with Effexor. His long-term prognosis is guarded. Supportive and educational interventions were made. TRANSINT:[id number] Voice Confirmation ID: [id number] DOCUMENT ID: [id number] MICHAEL ELLISON MD at 1508 CC: [id number] DICTATION DATE: 04/05/20 1534 PSYCHIATRIC SPECIALIST: 04/05/20 2342 ADM IN [place] [id number] [place] [address]
[2020-04-06 20:11] VITALS: BP 119/77
--- NOTE | 2020-04-06 21:06 | NUR ---
RECEIVED IN DAYROOM. SITTING IN A CHAIR WITH PEERS AT HIS SIDE.SOCIAL WITH PEERS AT TIMES. CALM AND COOPERATIVE WITH CARE AND ASSESSMENT. NO SIGNS OF AGGRESSION. REDIRECT AND REORIENT NEEDED. CONTINUE PLAN OF CARE. CONTINUE PLAN OF CARE.
[2020-04-07 10:37] VITALS: BP 119/60
--- NOTE | 2020-04-07 13:51 | NUR ---
The patient is awake and more alert today. He is labile. One minute he is deep in thought and he is saying he has pain, but not physical pain. Then the next minute he is joking and laughing with staff. He is cooperative and has not shown any aggression today. He ambulates independently. Provide prescribed meds. The patient is compliant with meds. Continue POC.
--- NOTE | 2020-04-07 15:13 | NUR ---
Nutrition Follow-up: Diet: Regular PO intake: ~87% average x last 9 meals Last BM: 04/04/20. Wt: 171.4# (04/04/20); Admit Wt: 175# (03/23/20) Meds reviewed. No new labs. Noted weight change however, question accuracy of admit wt at patient is meeting nutrition needs via adequate PO intake. Recommend continue current diet. RD following.
--- NOTE | 2020-04-07 16:23 | PN ---
PATIENT:RAJNI CHAVEZ MEDICAL RECORD: [id number] LOCATION:[facility] ADMISSION DATE: 03/23/20 PROGRESS NOTE DATE OF SERVICE: 04/06/2020 SUBJECTIVE: The patient's case was discussed with staff. He has no new complaint. OBJECTIVE: The patient is in good behavioral control. He has poor insight about his situation. He is tolerating his antidepressant medication well and denies that he would seek to harm himself. ASSESSMENT: 1. Vascular dementia. 2. Major depression. PLAN: Current medicines have been reviewed. I am going to increase the dose of the Effexor slightly. I will also maintain current medicines. TRANSINT:[id number] Voice Confirmation ID: [id number] DOCUMENT ID: [id number] MICHAEL ELLISON MD at 1623 CC: [id number] DICTATION DATE: 04/06/20 1600 SHOE WORKER: 04/06/20 2207 ADM IN [place] [id number] [place] [address]
[2020-04-07 20:00] VITALS: BP 120/51
--- NOTE | 2020-04-07 21:00 | NUR ---
RECIEVED IN DAYROOM. SOCIALIZING WITH OTHER PATIENTS. CALM AND COOPERATIVE WITH CARE AND ASSESSMENT. NO AGGRESSIVE BEHAVIORS. NO EXIT SEEKING BEHAVIORS. REDIRECT AND REORIENT NEEDED. PARTICIPATING IN GROUP AT THIS TIME. CONTINUE PLAN OF CARE.
--- NOTE | 2020-04-07 21:30 | NUR ---
PATIENT BECAME VERY AGITATED AND AGGRESSIVE WITH STAFF. EXIT SEEKING AND BANGING ON ALL THE DOORS. STATING HE WAS GETTING OUT, WHETHER HE HAS TO BREAK A DOOR DOWN OR BREAK A WINDOW. GOING IN OTHER PATIENTS ROOMS. YELLING AT OTHER PATIENTS. PRN ATIVAN 0.5 MG AND HALDOL 2 MG IM GIVEN.
[2020-04-08 10:11] VITALS: BP 120/65
--- NOTE | 2020-04-08 16:51 | PN ---
PATIENT:RAJNI CHAVEZ MEDICAL RECORD: [id number] LOCATION:[facility] ADMISSION DATE: 03/23/20 PROGRESS NOTE DATE OF SERVICE: 04/07/2020 SUBJECTIVE: The patient's case was discussed with staff. He has no new complaint. OBJECTIVE: The patient is disorganized, but not aggressive. His mood has improved. ASSESSMENT: 1. Vascular dementia. 2. Major depression. PLAN: Current medicines have been reviewed and will be maintained. His long-term prognosis is guarded. It is my understanding that the assisted living center is going to give him another try there. TRANSINT:[id number] Voice Confirmation ID: [id number] DOCUMENT ID: [id number] MICHAEL ELLISON MD at 1651 CC: [id number] DICTATION DATE: 04/07/20 171 ENVIRONMENTAL HEALTH TECHNOLOGIST: 04/07/202030 ADM IN [facility] [address] [place] [address]
--- NOTE | 2020-04-08 18:39 | NUR ---
OBSERVED KISSING FEMALE PEER ON FORHEAD THIS AM.IS COMPLIANT WITH STAFF AND MEDS.WILL CONTINUE WITH CURRENT PLAN OF CARE,MONITOR FOR CHANGES AND SAFETY.
[2020-04-08 19:36] VITALS: BP 115/64
--- NOTE | 2020-04-09 02:34 | NUR ---
B) Patient is alert and oriented to person, social with peers, no aggression this shift, I) Administered scheduled medications as ordered, redirected as needed, R) Medication compliant, sleeping quietly in his bed, P) Continue plan of care.
--- NOTE | 2020-04-09 08:40 | NUR ---
The patient is awake and he is ambulating in the hallways and he needs much redirection. He is confused, he keeps saying he has to get his keys and go somewhere. He reached across the nurses station counter and tried to grab some items off of the counter. Staff had to redirect him. He has poor insight into his situation. He was not directable. He is pleasant and did not get upset, but he doesn't understand. Provide prescribed meds. The patient is compliant with meds. Continue POC.
[2020-04-09 10:11] VITALS: BP 108/56
--- NOTE | 2020-04-09 12:05 | NUR ---
The patient is awake and alert, he has been quiet today, he has not shown any aggression today, he watches the groups, but has minimal participation. Provide prescribed meds. The patient is compliant with meds. He ambulates independently he has poor insight into his situation. Provide prescribed meds. The patient is complaint with meds. Continue POC.
--- NOTE | 2020-04-09 13:01 | PN ---
PATIENT:RAJNI CHAVEZ MEDICAL RECORD: [id number] LOCATION:[facility] ADMISSION DATE: 03/23/20 PROGRESS NOTE DATE OF SERVICE: 04/08/2020 SUBJECTIVE: The patient's case was discussed with staff. He has no new complaint. OBJECTIVE: The patient denies intent to harm himself or others. He is tolerating his medicines well. He denies that he would seek to harm himself. ASSESSMENT: 1. Vascular dementia. 2. Major depression. PLAN: The patient's Effexor was increased today to 150 mg at bedtime. His long-term prognosis is guarded. TRANSINT:[id number] Voice Confirmation ID: [id number] DOCUMENT ID: [id number] MICHAEL ELLISON MD at 1301 CC: [id number] DICTATION DATE: 04/08/201826 DINING SERVICE SUPERVISOR: 04/08/202117 ADM IN [facility] [address] [place] [address]
[2020-04-09 20:00] VITALS: BP 114/48
--- NOTE | 2020-04-09 21:39 | NUR ---
B.) PT IS ALERT AND ORIENTED TO SELF ONLY. HE HAS POOR INSIGHT INTO HIS SITUATION. HE IS ABLE TO AMBULATE WITHOUT ASSIST. HE IS OBSERVED SOCIALIZING WITH PEERS. HE IS CALM AND COOPERATIVE. I.) PROVIDED PM MEDICATIONS PRESCRIBED. REDIRECT NEEDED. R.) COMPLIANT WITH ALL MEDICATIONS PRESCRIBED. EASY TO REDIRECT. P.) WILL CONTINUE TO MONITOR.
[2020-04-10 09:51] VITALS: BP 111/52
--- NOTE | 2020-04-10 10:54 | NUR ---
The patient is awake and alert, he is jovial and interacting with staff and peers. He has not shown any aggression and he is not exit seeking, although, he has mentioned that he has not seen his brothers and sisters in years and he would like to see them. He said "Adama got all the attention, I didn't get any. Adama was the baby and I was next to the last." Provide prescribed meds. The patient is compliant with meds. Continue POC.
[2020-04-10 20:00] VITALS: BP 112/34
--- NOTE | 2020-04-10 22:40 | NUR ---
B) Patient is alert and oriented to person, social with peers, forgetful, poor short term memory I) Administered scheduled medications as ordered, monitored for safety R) Medication compliant, follows instructions, P) Continue plan of care.
[2020-04-11 08:44] VITALS: BP 112/46
--- NOTE | 2020-04-11 11:03 | NUR ---
The patient is awake and alert, he is pleasant. He denies SI, HI, or depression. He is interacting well with staff and peers. He has not shown any aggression this am. He ambulates independently. Provide prescribed meds. He is compliant with meds. He has poor insight into his situation. He has poor short term memory recall. Continue POC.
[2020-04-11 19:19] VITALS: BP 121/52
--- NOTE | 2020-04-11 20:14 | NUR ---
RECEIVED IN DAYROOM. SITTING IN A CHAIR WITH PEERS AT HIS SIDE. SOCIAL AT TIMES. CALM AND COOPERATIVE WITH CARE AND ASSESSMENT. NO SIGNS OF AGGRESSION. REDIRECT AND REOREINT NEEEDED. CONTINUES TO SIT CALMLY IN DAYROOM. CONTINUE PLAN OF CARE.
[2020-04-12 08:46] VITALS: BP 109/56
--- NOTE | 2020-04-12 12:00 | NUR ---
RECEIVED IN HALLWAY OUTSIDE OF NURSES STATION. CALM AND COOPERATIVE WITH CARE AND ASSESSMENT. NO BEHAVIORS TODAY. REDIRECT AND REORIENT NEEDED. EATING AT THIS TIME. CONTINUE PLAN OF CARE.
[2020-04-12] MEDS ORDERED: EFFEXOR37.5 MG PO (18:09)
[2020-04-12] MEDS ORDERED: OSCAL D TABLET PO (18:09)
[2020-04-12] MEDS ORDERED: VITAMIN D1000 UNIT PO (18:10)
--- NOTE | 2020-04-12 20:14 | NUR ---
RECEIVED IN DAYROOM. SITTING IN A CHAIR WITH PEERS AT HIS SIDE. SOCIALIZING WITH PEERS. CALM AND COOPERATIVE WITH CARE AND ASSESSMENT. NO SIGNS OF AGGRESSION. NO STATEMENTS OF SELF HARM VOICED AT THIS TIME. ENCOURAGE TO EXPRESS NEEDS. CONTINUES TO SIT CALMLY SOCIALIZING WITH PEERS. CONTINUE PLAN OF CARE.
[2020-04-12 20:18] VITALS: BP 126/57
[2020-04-13 09:49] VITALS: BP 118/41
--- NOTE | 2020-04-13 10:45 | NUR ---
ZACHARY CALLED AND DISCUSSED DISCHARGE WITH PT'S JUAN DRUMMOND. ZACHARY STATED PT DOESN'T WANT TO GO BACK TO [place] BUT IS GOING TO RETURN TODAY. ZACHARY GAVE OTHER OPTIONAL PLACEMENTS IN CASE THIS PLACEMENT DOESN'T WORK. JUAN VOICED UNDERSTANDING OF DISCUSSION.
--- NOTE | 2020-04-13 16:00 | NUR ---
PATIENT DISCHARGED TO [facility]. PAPERWORK FAXED TO [facility] AND HARD COPY SENT WITH PATIENT. REPORT CALLED TO [facility]. PERSONAL BELONGING SENT WITH PATIENT.
--- NOTE | 2020-04-13 16:37 | PN ---
PATIENT:ROBERT CHAVEZ MEDICAL RECORD: [id number] LOCATION:[facility] ADMISSION DATE: 03/23/20 PROGRESS NOTE DATE OF SERVICE: 04/12/2020 SUBJECTIVE: The patient's case was discussed with staff. He has no new complaint. OBJECTIVE: The patient is cognitively impaired, but not disruptive or behaviorally out of control. He is tolerating his medicines well. ASSESSMENT: 1. Vascular dementia. 2. Major depression. PLAN: The patient has no thoughts of harming himself or others. He is tolerating his medicines well. I am going to transition him back to the assisted living center tomorrow. I believe that it is only marginal that he is going to be successful there. I think that his recurring admissions are related to a lack of appropriate intensive supervision. That is not the fault of the assisted living center, it is simply that it is probably more appropriate or better designed for individuals who are not as impaired as Robert. Followup will be with his primary care physician. Current medications will be maintained. TRANSINT:[id number] Voice Confirmation ID: [id number] DOCUMENT ID: [id number] MICHAEL ELLISON MD at 1637 CC: [id number] DICTATION DATE: 04/12/20 180 ASSET PROTECTION SPECIALIST: 04/12/20 2132 ADM IN [place] [id number] [place] [address]
== END 2020-04-13 16:00 | DRG 884 ==
LOC: D.PSYCH 09:14
PROVIDERS: ADMIT Psychiatry & Neurology Psychiatry; ATTEND Psychiatry & Neurology Psychiatry
DX: F01.51 Vascular dementia, unspecified severity, with behavioral disturbance (principal); E78.5 Hyperlipidemia, unspecified; I10 Essential (primary) hypertension; I25.10 Atherosclerotic heart disease of native coronary artery without angina pectoris; M19.90 Unspecified osteoarthritis, unspecified site; E55.9 Vitamin D deficiency, unspecified; F32.9 Major depressive disorder, single episode, unspecified; R73.03 Prediabetes; K21.9 Gastro-esophageal reflux disease without esophagitis; G62.9 Polyneuropathy, unspecified; K59.00 Constipation, unspecified; N28.9 Disorder of kidney and ureter, unspecified; Z95.1 Presence of aortocoronary bypass graft

== ENCOUNTER 2020-04-13 18:50 | Inpatient (IN) | payer MEDICARE ==
[~2020-04-13] VITALS: Ht 172.7 cm; Wt 78.5 kg
[~2020-04-13 18:50] MED LIST changes: +EFFEXOR37.5 MG PO; +OSCAL D TABLET PO; +VITAMIN D1000 UNIT PO
[2020-04-13 20:00] VITALS: BP 130/42
--- NOTE | 2020-04-13 23:52 | NUR ---
PATIENT ARRIVED AT 1830 FROM [facility], PATIENT HAD GONE TO [facility] TODAY AND WAS AGGRESSIVE WITH STAFF, PATIENT WAS GONE ONLY A FEW HOURS, CODE STATUS IS FULL CODE, CONSENT FROM [facility]ITY [facility]AS AND GRAND DAUGHTER, CODE WORD IS 7553, ALERT AND ORIENTED TO SELF, PT CLAIMS NO MEMORY OF BEING AT [facility], PT IS CALM AND COOPERATIVE, [HYSICIAN AWARE OF ARRIVAL, WILL CONTINUE TO MONITOR.
[2020-04-14 00:19] VITALS: BP 130/42; BMI 26.5
[2020-04-14 06:55] LABS: BASOPHILS 0.4 % (0-2); EOSINOPHILS 5.5 % (0-7); HEMATOCRIT 36.5 % (42.0-54.0); HEMOGLOBIN 11.7 g/dL (13.5-17.5); IMMATURE GRANULOCYTES 0.1 % (0-5); LYMPHOCYTES 24.9 % (15-50); MCH 30.8 pg (26.0-34.0); MCHC 32.1 g/dL (31.0-37.0); MCV 96.1 fL (80.0-100.0); MEAN PLATELET VOLUME 9.7 fL (7.4-10.4); MONOCYTES 10.5 % (2-11); NEUTROPHILS 58.6 % (40-80); PLATELET COUNT 225 10x3/uL (130-400); RDW 13.8 % (11.5-14.5); WBC 7.1 10x3/uL (4.8-10.8)
[2020-04-14 07:52] VITALS: BP 111/65
[2020-04-14 08:42] LABS: ALBUMIN 3.3 g/dL (3.4-5.0); ANION GAP 11.8 mmol/L (8-16); BILIRUBIN - TOTAL 0.27 mg/dL (0.2-1.3); CARBON DIOXIDE 29.3 mmol/L (21.0-32.0); CHOL - HDL RATIO 2.4 ratio (2.3-4.9); CREATININE - SERUM 2.5 mg/dL (0.6-1.3); LDL-HDL RATIO 1.2 ratio (1.5-3.5); POTASSIUM - SERUM 5.1 mmol/L (3.5-5.1); PROTEIN - SERUM 6.7 g/dL (6.4-8.2); THYROID STIMULATING HORMONE 2.31 uIU/mL (0.36-3.74)
--- NOTE | 2020-04-14 09:00 | NUR ---
SW MET WITH PT TO DISCUSS READMISSION. PT STATED HE DIDN'T WANT TO LIVE AND HE DOESN'T CARE IF HE RIGHT NOW. PT SUGGESTED HE WOULD HURT CONTACT FINGER ASSEMBLER IF SHE DIDN'T LEAVE HIM ALONE. HE STATED JUST LET ME OUT OF THIS PLACE AND I WILL NOT KILL MYSELF OR ANYONE ELSE. SW REDIRECTED PT. PT'S AFFECT WAS APPROPRIATE. PT'S MOOD WAS LABILE.
--- NOTE | 2020-04-14 11:06 | NUR ---
The patient is in an irritable mood today, he is isolating, he is not talking to anyone. He refused breakfast. Offered him something to drink, he refused. He is sitting or standing in the dining room away from others if the other patient's say anything to him he gives terse remarks. He ambulates independently. Provide prescribed meds. He has not received meds at this time. Will monitor. Continue POC.
--- NOTE | 2020-04-14 12:43 | PN ---
PATIENT:RAJNI CHAVEZ MEDICAL RECORD: [id number] LOCATION:[facility] ADMISSION DATE: 04/13/20 PROGRESS NOTE DATE OF SERVICE: 04/13/2020 SUBJECTIVE: The patient's case was discussed with staff. He has no new complaint. OBJECTIVE: The patient denies intent to harm himself or others. He is tolerating his medicines well. He is not happy about going back to the assisted living center. ASSESSMENT: 1. Vascular dementia. 2. Major depression. PLAN: The patient wants to live here. That has been an ongoing issue. This has been explained to him multiple times that he cannot live here. He does not fully appreciate that. It is my opinion that his behaviors here are excellent and that if he is not going to be successful this time at the assisted living center, the problem is most likely environmental and not pharmacologic. TRANSINT:[id number] Voice Confirmation ID: [id number] DOCUMENT ID: [id number] MICHAEL ELLISON MD at 1243 CC: [id number] DICTATION DATE: 04/13/20 1647 PERFORMANCE TEST ARCHITECT: 04/13/20 2344 ADM IN [facility] [address] [place] [address]
[2020-04-14 14:01] VITALS: Ht 172.7 cm; Wt 78.5 kg
[2020-04-14 20:33] VITALS: BP 154/67
--- NOTE | 2020-04-14 22:29 | NUR ---
B.) PT IS ALERT AND ORIENTED TO SELF ONLY. HE IS UPSET ABOUT RETURNING BACK FROM [facility]. HE IS COOPERATIVE WITH STAFF. HE IS ABLE TO ABULATE WITHOUT ASSIST. I.) PROVIDED PM MEDICATIONS PRESCRIBED. REDIRECT NEEDED. R.) COMPLIANT WITH ALL MEDICATIONS. EASY TO REDIRECT. P.) WILL CONTINUE TO MONITOR.
[2020-04-15 08:13] LABS: RAPID PLASMA REAGIN Non Reactive (Non Reactive)
[2020-04-15 08:42] VITALS: BP 123/65
--- NOTE | 2020-04-15 11:28 | NUR ---
The patient is flat to blunted in affect, but he is getting in a little bit better mood since he is participating in groups. He ambulates independently. He has not shown any voilence today. He is not exit seeking. Continue POC.
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
--- NOTE | 2020-04-15 15:26 | NUR ---
The patient is less anxious, he is looking out of the window. He is interacting with staff.
[2020-04-15 20:06] VITALS: BP 131/62
--- NOTE | 2020-04-16 02:30 | NUR ---
B) Patient is alert and oriented to person, very confused and wanders at times, I) Administered scheduled medications as ordered, reoiented as needed, R) Mediation compliant, pleasant and friendly toward staff P) Continue plan of care,
--- NOTE | 2020-04-16 07:49 | NUR ---
The patient is awake and alert, he is pleasant and calm this am and smiling. He has poor insight into his situation. He is ambulatory and he has not shown any aggression this am. Provide prescribed meds. Redirect to unit. The patient is compliant with meds. He has poor short term memory. He is easily redirectable. Continue POC.
[2020-04-16 09:18] VITALS: BP 130/64
--- NOTE | 2020-04-16 12:43 | PN ---
PATIENT:RAJNI CHAVEZ MEDICAL RECORD: [id number] LOCATION:[facility] ADMISSION DATE: 04/13/20 PROGRESS NOTE DATE OF SERVICE: 04/15/2020 SUBJECTIVE: The patient's case was discussed with staff. He has no new complaints. OBJECTIVE: The patient is tearful and very confused about his situation. He denies that he would seek to harm himself or others. He has limited insight about his situation. He has been making some suicidal statements. He does not repeat those to me. ASSESSMENT: 1. Vascular dementia. 2. Major depression. PLAN: Current medicines have been reviewed and will be maintained. Long-term prognosis is guarded. Both supportive and educational interventions were made. TRANSINT:[id number] Voice Confirmation ID: [id number] DOCUMENT ID: [id number] MICHAEL ELLISON MD at 1243 CC: [id number] DICTATION DATE: 04/15/20 1446 INDEPENDENT TRADER: 04/15/20 1853 ADM IN [facility] [address] [place] [id number]
[2020-04-16 20:10] VITALS: BP 141/68
--- NOTE | 2020-04-16 20:45 | NUR ---
RECEIVED PATIENT IN DAYROOM, HE WANDERS AROUND THE UNIT. HE IS VERY FLIRTY AT TIMES. COMPLIANT WITH MEDS, VERY CONFUSED. HAS TO BE SHOWN WHERE HIS ROOM IS ALWAYS, WILL FOLLOW POC
[2020-04-17 09:30] VITALS: BP 114/64
--- NOTE | 2020-04-17 14:52 | NUR ---
RECEIVED THIS AM SITTING IN CHAIR ,IS AMBULATORY,QUITE,KEEPS TO HIMSELF MUCH OF THE TIME BUT ALSO ENJOYS VISITING WITH FEMALE PEER.IS COMPLIANT WITH STAFF AND PEERS.NO AGGRESSION OBSERVED.WILL CONTINUE WITH CURRENT PLAN OF CARE,MONITOR FOR SAFETY AND CHANGES.
[2020-04-17 19:16] VITALS: BP 111/42
--- NOTE | 2020-04-17 20:32 | NUR ---
RECEIVED PATIENT IN DAYROOM, HE IS PLEASANT WATCHING A MOVIE, HE IS CONFUSED, COMPLIANT WITH MEDS, HE IS NOT "RESTLESS" THIS EVENING. WILL FOLLOW POC
[2020-04-18 09:47] VITALS: BP 122/70
--- NOTE | 2020-04-18 12:00 | NUR ---
RECEIVED IN HALLWAY OUTSIDE OF NURSES STATION. CALM AND COOPERATIVE WITH CARE AND ASSESSMENT. NO AGGRESSIVE BEHAVIOR. REDIRECT AND REORIENT NEEDED. EATING AT THIS TIME. CONTINUE PLAN OF CARE.
[2020-04-18 20:14] VITALS: BP 105/45
--- NOTE | 2020-04-18 20:35 | NUR ---
RECEIVED IN DAYROOM. SITTING IN A CHAIR WITH PEERS AT HIS SIDE. SOCIAL AT TIMES. CALM AND COOPERATIVE WITH CARE AND ASSESSMENT. NO SIGNS OF AGGRESSION. REDIRECT AND REOREINT NEEDED. CONTINUE PLAN OF CARE.
[2020-04-19 06:55] LABS: ANION GAP 10.2 mmol/L (8-16); CALCIUM 8.5 mg/dL (8.5-10.1); CARBON DIOXIDE 27.5 mmol/L (21.0-32.0); CREATININE - SERUM 2.3 mg/dL (0.6-1.3); POTASSIUM - SERUM 4.7 mmol/L (3.5-5.1)
[2020-04-19 09:19] VITALS: BP 129/69
--- NOTE | 2020-04-19 11:10 | NUR ---
Nutrition Follow-up: Diet: Regular PO intake: 100% x last 5 Last BM: 04/17/20. Wt: 172.8# (); Admit Wt: 174.4# (04/14/20) Meds reviewed. Labs noted: BUN 40(H), Cr 2.3(H), GFR 30(L) Recommend continue current diet. RD following.
--- NOTE | 2020-04-19 12:00 | NUR ---
RECEIVED IN HALLWAY OUTSIDE OF NURSES STATION. CALM AND COOPERATIVE WITH CARE AND ASSESSMENT. NO AGGRESSION. REDIRECT AND REORIENT NEEDED. EATING AT THIS TIME. CONTINUE PLAN OF CARE.
[2020-04-19 20:28] VITALS: BP 116/62
--- NOTE | 2020-04-19 23:11 | NUR ---
RECEIVED IN DAYROOM. SITTING IN A CHAIR WITH PEERS AT HIS SIDE. CALM AND COOPERATIVE WITH CARE AND ASSESSMENT. NO SIGNS OF AGGRESSION. REDIRECT AND REORIENT NEEDED. RESTING IN BED WITH EYES CLOSED. CONTINUE PLAN OF CARE.
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
[2020-04-20 10:17] VITALS: BP 148/62
--- NOTE | 2020-04-20 12:00 | NUR ---
RECEIVED IN HALLWAY OUTSIDE OF NURSES STATION. CALM AND COOPERATIVE WITH CARE AND ASSESSMENT. NO BEHAVIORS NOTED. REDIRECT AND REORIENT NEEDED. EATING AT THIS TIME. CONTINUE PLAN OF CARE.
[2020-04-20 20:53] VITALS: BP 118/43
--- NOTE | 2020-04-20 23:32 | NUR ---
RECEIVED IN DAYROOM. SITTING IN A CHAIR WITH PEERS AT HIS SIDE. SOCIAL. CALM AND COOPERATIVE WITH CARE AND ASSESSMENT. NO SIGNS OF AGGRESSION. REDIRECT AND REOREINT NEEDED. RESTING IN BED WITH EYES CLOSED AT THIS TIME. CONTINUE PLAN OF CARE.
--- NOTE | 2020-04-21 13:27 | PN ---
PATIENT:RAJNI CHAVEZ MEDICAL RECORD: [id number] LOCATION:[facility] ADMISSION DATE: 04/13/20 PROGRESS NOTE DATE OF SERVICE: 04/20/2020 SUBJECTIVE: The patient's case was discussed with staff. He has no new complaint. OBJECTIVE: The patient is in good behavioral control. He has poor insight about his situation. He has not been aggressive. ASSESSMENT: Vascular dementia. PLAN: The patient is not appropriate to return to the [facility] and I am glad to have it reported to me today that they are not wanting him back. Unfortunately, there is the problem of placing him given the current pandemic and placement is difficult. Once placement is arranged on the behavioral unit, he can be discharged. TRANSINT:[id number] Voice Confirmation ID: [id number] DOCUMENT ID: [id number] MICHAEL ELLISON MD at 1327 CC: [id number] DICTATION DATE: 04/20/20 1627 SERGEANT MISSILE CREWMAN: 04/20/20 2354 ADM IN [place] [id number] [place] [id number]
[2020-04-21 14:18] VITALS: BP 136/65
--- NOTE | 2020-04-21 15:13 | NUR ---
Nutrition Follow-up: Diet: Regular PO intake: 100% x 9 Last BM: 04/17/20. Wt: 172.8# (04/18/20); Admit Wt: 174.4# (04/14/20) Meds noted: potassium citrate Labs noted (04/19/20): BUN 40(H), Cr 2.3(H), GFR 30(L) Recommend continue current diet. RD following.
--- NOTE | 2020-04-21 16:50 | NUR ---
PT WAS IN SITTING IN 1136 STAFF REDIRECTED PT INTO THE HALLWAY. PT WALKED UP VERY QUICKLY ON NURSE STATING "WHAT DO YOU WANT?" STAFF REDIRECTED PT INTO DAY AREA. PT WAS AGITATED ABOUT NOT BEING ABLE TO SIT IN THE OTHER ROOM. PT CONT TO BE VERBALLY AGGRESSIVE. UNABLE TO REDIRECT BEHAVIORS. PT WENT AND SAT ON THE FLOOR STATING WELL YOU CAN GET ME UP FROM HERE. WHEN ASKED TO GET OFF THE FLOOR. PT DID NOT COMPLY. PT BECAME ANGER AND WALKED OFF. ATIVAN 0.5 MG AND HALDOL [address] ELLISON PRN ORDER. WILL CONT TO MONITOR FOR EFFECTIVENESS.
--- NOTE | 2020-04-21 17:50 | NUR ---
PRN EFFECTIVE AT THIS TIME. WILL CONT TO MONITOR.
[2020-04-21 20:00] VITALS: BP 99/43
--- NOTE | 2020-04-21 20:55 | NUR ---
RECEIVED PATIENT IN DAYROOM, HE IS QUIET, SLIGHTLY DROWSY FROM HAVING A PRN EARLIER ON PREVIOUS SHIFT. HE IS CONFUSED. COMPLIANT WITH MES. WILL MONITOR
[2020-04-22 09:40] VITALS: BP 109/56
--- NOTE | 2020-04-22 11:38 | NUR ---
PT SITTING AND WATCHING T.V. PT IS CALM AND COOPERATIVE. CONFUSION NOTED. NO AGRESSIVE BEHAVIOR NOTED. ALERT TO SELF ONLY. PT IS COMPLIANT WITH MEDS, VITALS AND ASSESSMENTS. PT CAN MAKE NEEDS KNOWN. INDEPENDENT ADLS WITH SET UP. PT IS QUIET THIS SHIFT BUT ANSWER QUESTIONS WHEN ASKED. WILL CONT PLAN OF CARE.
--- NOTE | 2020-04-22 14:39 | PN ---
PATIENT:RAJNI CHAVEZ AUDIE MEDICAL RECORD: [id number] LOCATION:[facility] ADMISSION DATE: 04/13/20 PROGRESS NOTE DATE OF SERVICE: 04/21/2020 SUBJECTIVE: The patient's case was discussed with staff. He has no new complaint. OBJECTIVE: The patient has been somewhat agitated, but not disruptive. He denies that he would seek to harm himself. He continues to insist that his granddaughter is going to come and get him and take him home. That is not true, but he becomes angry whenever it is suggested. ASSESSMENT: Vascular dementia. PLAN: The patient will be maintained on current medications. I am going to start him on a scheduled dose of Seroquel to assist with his thought disorganization. He will be monitored for clinical changes associated with its use. TRANSINT:[id number] Voice Confirmation ID: [id number] DOCUMENT ID: [id number] MICHAEL ELLISON MD at 1439 CC: [id number] DICTATION DATE: 04/21/20 1631 TANKER DRIVER: 04/22/20 0104 ADM IN [facility] [address] [place] [address]
[2020-04-22 20:04] VITALS: BP 105/43
--- NOTE | 2020-04-22 21:36 | NUR ---
RECEIVED PATIENT IN DAYROOM, QUIET, STAYING TO HIMSELF, CALM, VERY CONFUSED, COMPLIANT WITH MEDS. MAKES NEEDS KNOWN, HAS TO BE SHOWN HIS ROOM EVERY DAY. WILL FOLLOW POC
[2020-04-23 09:22] VITALS: BP 137/65
--- NOTE | 2020-04-23 10:33 | PN ---
PATIENT:RAJNI CHAVEZ AUDIE MEDICAL RECORD: [id number] LOCATION:[facility] ADMISSION DATE: 04/13/20 PROGRESS NOTE DATE OF SERVICE: 04/22/2020 SUBJECTIVE: The patient's case was discussed with staff. He has no new complaint. OBJECTIVE: The patient is in good behavioral control. He has poor insight about his situation. He is tolerating his medicines well. ASSESSMENT: Dementia. PLAN: The patient can be discharged as soon as appropriate placement is arranged. He did have some behavior outbursts yesterday and required p.r.n. medication. I think that was probably a fairly isolated event. I did make some medication changes and he seems better today. TRANSINT:[id number] Voice Confirmation ID: [id number] DOCUMENT ID: [id number] MICHAEL ELLISON MD at 1033 CC: [id number] DICTATION DATE: 04/22/20 1506 SAMMYING MACHINE OPERATOR: 04/22/20 2224 ADM IN [place] [id number] [place] [address]
--- NOTE | 2020-04-23 13:00 | NUR ---
The patient is awake and alert, he is in a wonderful mood. He has even said "I'm going to be leaving here pretty soon." That is not bothering him. He has not shown any aggression or agitation. Provide prescribed meds. The patient is compliant with meds. Continue POC.
[2020-04-23 20:10] VITALS: BP 93/44
--- NOTE | 2020-04-24 01:03 | NUR ---
B) Patient is alert and oriented to person, very confused with poor short term memory, I) Administered scheduled medications as ordered, redirected as needed, R) Mediation compliant, no aggression noted P) Continue plan of care.
[2020-04-24 08:27] VITALS: BP 138/75
--- NOTE | 2020-04-24 11:28 | PN ---
PATIENT:RAJNI CHAVEZ MEDICAL RECORD: [id number] LOCATION:[facility] ADMISSION DATE: 04/13/20 PROGRESS NOTE DATE OF SERVICE: 04/23/2020 SUBJECTIVE: The patient's case was discussed with staff. He has no new complaint. OBJECTIVE: The patient is in good behavioral control. He has poor insight about his condition. He tolerates his medicines well. ASSESSMENT: Dementia. PLAN: The patient has not been aggressive. He is appropriate for a 26-xxad-j-day long-term care setting and discussing the situation with the addiction social worker enterprise resource planner, she is looking at a fdc or more accurately a fdc in [place] is planning to take him or at least considering taking him. Hopefully, they will do so after the weekend. TRANSINT:[id number] Voice Confirmation ID: [id number] DOCUMENT ID: [id number] MICHAEL ELLISON MD at 1128 CC: [id number] DICTATION DATE: 04/23/20 1603 RAGS LABORER: 04/24/20 0112 ADM IN [facility] [address] [place] [address]
--- NOTE | 2020-04-24 15:55 | NUR ---
The patient is calm, he remains confused, he doesn't know where he is, but he is pleasant. He is ambulatory. He has poor insight into his situation. Provide prescribed meds. The patient is compliant with meds. He is helpful with other patients. He has not shown any aggression today. Continue POC.
--- NOTE | 2020-04-24 19:06 | PN ---
PATIENT:RAJNI CHAVEZ AUDIE MEDICAL RECORD: [id number] LOCATION:[facility] ADMISSION DATE: 04/13/20 PROGRESS NOTE DATE OF SERVICE: 04/24/2020 SUBJECTIVE: The patient's case was discussed with staff. He has no new complaint. OBJECTIVE: The patient is calm and cooperative, but impaired cognitively. He denies that he would seek to harm himself or others. He does seem to be tolerating his medications well and is not overly sedated. ASSESSMENT: 1. Dementia. 2. Vascular dementia. 3. Major depression. PLAN: Current medicines and therapies have been reviewed and will be maintained. Long-term prognosis is guarded. TRANSINT:[id number] Voice Confirmation ID: [id number] DOCUMENT ID: [id number] MICHAEL ELLISON MD at 1906 CC: [id number] DICTATION DATE: 04/24/20 1247 LIFESTYLE COORDINATOR: 04/24/20 1427 ADM IN [place] [address] [place] [address]
[2020-04-24 20:00] VITALS: BP 101/46
--- NOTE | 2020-04-24 20:30 | NUR ---
B.) PT IS ALERT AND ORIENTED TO SELF ONLY. HE HAS POOR INSIGHT INTO HIS SITUATION. HE IS CALM AND COOPERATIVE WITH STAFF. HE IS ABLE TO VOICE NEEDS AND WANTS AT THIS TIME. I.) PROVIDED PM MEDICATIONS PRESCRIBED. REDIRECT NEEDED. R.) COMPLIANT WITH ALL MEDICATIONS. EASY TO REDIRECT P.) WILL CONTINUE TO MONITOR.
[2020-04-25 10:50] VITALS: BP 157/77
--- NOTE | 2020-04-25 11:45 | NUR ---
The patient is awake and he is pleasant he tries to be helpful with staff and other patients. He has poor insight into his situation. He ambulates independently. Provide prescribed meds. The patient is compliant with meds. He has poor short term memory recall. He forgets within minutes of asking a question. Continue POC.
--- NOTE | 2020-04-25 20:25 | NUR ---
RECEIVEDIN DAYROOM. SITTING IN A CHAIR WITH PEERS AT HIS SIDE. CALM AND COOPERATIVE WITH CARE AND ASSESSMENT. NO SIGNS OF AGGRESSION. REDIRECT AND REORIENT NEEDED. CONTINUES TO SIT CALMLY IN DAYROOM. CONTINUE PLAN OF CARE.
[2020-04-25 20:37] VITALS: BP 106/55
[2020-04-26 09:21] VITALS: BP 131/64
--- NOTE | 2020-04-26 10:36 | NUR ---
PT IS CONFUSED BUT CAN BE REDIRECTED. HE SHOWS NO SIGNS OF RETAINING THE INFORMATION. NO AGGRESSION NOTED. CALM, COOPERATIVE. MEDICATION COMPLIANT. WILL CONTINUE TO MONITOR AND CONTINUE WITH PLAN OF CARE.
[2020-04-26 20:05] VITALS: BP 101/47
--- NOTE | 2020-04-27 03:08 | NUR ---
B) Patient is alert an doriented to person, calm and cooperative, no shortterm memory I) Administered scheduled medications as ordered, monitored for safety R) Mediacation compliant, redirects without the ability to retain any information, P) Continue plan of care.
--- NOTE | 2020-04-27 08:21 | PN ---
PATIENT:RAJNI CHAVEZ MEDICAL RECORD: [id number] LOCATION:[facility] ADMISSION DATE: 04/13/20 PROGRESS NOTE DATE OF SERVICE: 04/26/2020 SUBJECTIVE: The patient's case was discussed with staff. He has no new complaint. OBJECTIVE: The patient is eating and sleeping well. He has not been aggressive. He is tolerating his medications well. ASSESSMENT: Dementia. PLAN: The patient will be transitioned out of the hospital as soon as arrangements for an appropriate setting can be made. TRANSINT:[id number] Voice Confirmation ID: [id number] DOCUMENT ID: [id number] MICHAEL ELLISON MD at 0821 CC: [id number] DICTATION DATE: 04/26/20 1647 BLOOD BANK COORDINATOR: 04/26/20 2336 ADM IN [place] [id number] [place] [address]
[2020-04-27 09:53] VITALS: BP 131/53
--- NOTE | 2020-04-27 10:31 | NUR ---
PT SITTING IN DAYROOM WITH PEERS. CALM AND COOPERATIVE WITH ASSESSMENT. PRESCRIBED MEDS PROVIDED ORDERED. MED COMPLIANT. NO BEHAVIORS NOTED. WILL CPOC.
[2020-04-27 20:28] VITALS: BP 98/59
--- NOTE | 2020-04-27 23:16 | NUR ---
B) Patient is alert and oriented to person, patient appears to mad and unhappy about being here, I) Administered scheduled medications as ordered, redirected as needed, allowed time to self isolate R) Mediation compliant, keeping to himself, P) Continue plan of care.
[2020-04-28 09:16] VITALS: BP 113/67
--- NOTE | 2020-04-28 11:28 | NUR ---
PT IS ATTENDING GROUP AT THIS TIME. CALM AND COOPERATIVE WITH ASSESSMENT. PRESCRIBED MEDS PROVIDED ORDERED. MED COMPLIANT. NO BEHAVIORS NOTED AT THIS TIME. FALL PRECAUTIONS IN PLACE. WILL CPOC.
--- NOTE | 2020-04-28 15:58 | PN ---
PATIENT:RAJNI CHAVEZ MEDICAL RECORD: [id number] LOCATION:[facility] ADMISSION DATE: 04/13/20 PROGRESS NOTE DATE OF SERVICE: 04/27/2020 SUBJECTIVE: The patient's case was discussed with staff. He has no new complaint. OBJECTIVE: The patient denies that he would seek to harm himself or others. He does tolerate his medicines well. ASSESSMENT: 1. Vascular dementia. 2. Major depression. PLAN: The patient can be transitioned out of the hospital as soon as arrangements can be made. The office of long-term care has approved his custodial placement; however, the custodial has not given their approval yet. As soon as they do, he can be transitioned there. TRANSINT:[id number] Voice Confirmation ID: [id number] DOCUMENT ID: [id number] MICHAEL ELLISON MD at 1558 CC: [id number] DICTATION DATE: 04/27/20 1559 CIGAR MAKING MACHINE OPERATOR: 04/28/20 0016 ADM IN [place] [id number] [place] [id number]
--- NOTE | 2020-04-28 16:45 | NUR ---
Nutrition Follow-up: Diet: Regular PO intake: ~78% average x last 9 meals Last BM: 04/27/20. Wt: 179# (04/25/20); Admit Wt: 174.4# (04/14/20) Meds reviewed. No new labs. Recommend continue current diet. RD following.
[2020-04-28 20:01] VITALS: BP 114/48
--- NOTE | 2020-04-29 00:22 | NUR ---
B) Patient is alert and oriented to person, angry and defiant, patient thinks he is [age] at times and that we are taking advantage of him, delusional, states that he is going to break out I) Offered scheduled medications as ordered, redirected as needed, R) Refused all HS medications , refuses to redirect, confontational with staff, P) Continue plan of care.
[2020-04-29 09:25] VITALS: BP 135/72
--- NOTE | 2020-04-29 11:22 | NUR ---
The patient is pleasant and calm this am he says "i am fine as long as I have a pretty girl by my side." Told him to always stand by a pretty girl. He laughed and said "You just want me to stay in trouble." The patient has not shown any aggression or agitation this am. Provide prescribed meds. The patient is compliant with meds this am. He has poor insight into his situation. He has poor short term memory recall. Continue POC.
--- NOTE | 2020-04-29 12:01 | PN ---
PATIENT:RAJNI CHAVEZ MEDICAL RECORD: [id number] LOCATION:[facility] ADMISSION DATE: 04/13/20 PROGRESS NOTE DATE OF SERVICE: 04/28/2020 SUBJECTIVE: The patient's case was discussed with staff. He has no new complaint. OBJECTIVE: The patient is impaired cognitively and not fully oriented. His mood is euthymic. His affect appropriate. He has no thoughts of harming himself. ASSESSMENT: 1. Vascular dementia. 2. Major depression. PLAN: Current medicines will be maintained. Long-term prognosis is guarded. TRANSINT:[id number] Voice Confirmation ID: [id number] DOCUMENT ID: [id number] MICHAEL ELLISON MD at 1201 CC: [id number] DICTATION DATE: 04/28/20 1619 FISCAL SERVICES MANAGER: 04/29/20 0412 ADM IN [place] [id number] [place] [id number]
--- NOTE | 2020-04-29 15:08 | NUR ---
The patient is agitated. Reshma Ornelas AT asked him to come into the day room, he refused and now he is adamant he is sitting in the dining room telling me he is mad at the world and that I need to get away. Offered him a cola and to sit by him, but he says "You all just treat me any ol way, you don't worry about Robert, you just want to get what you want." Patient is sitting in the dining room alone. Hopefully he will self calm. Continue to monitor.
[2020-04-29 21:22] VITALS: BP 88/48
--- NOTE | 2020-04-29 23:21 | NUR ---
B) Patient is alert and oriented to person, restless and angry at times, I) Administered scheduled medications as ordered, monitored for safety, redirected as needed, R) mediation compliant, resting quietly now P) Continue plan of care.
[2020-04-30 09:07] VITALS: BP 157/78
--- NOTE | 2020-04-30 10:14 | NUR ---
The patient is awake and alert, he is pleasant and calm. He is in a better mood this am and he is talking to one of the patients. They are talking about where they grew up. He ambulates independently. He has not shown any aggression this am. Provide prescribed meds. The patient is compliant with meds this am. Continue POC.
--- NOTE | 2020-04-30 20:51 | NUR ---
PATIENT IS VERY CONFUSED, AGITATED THIS EVENING, HE THINKS THAT HE IS AT A FAMILY GET TOGETHER AND NO ONE IS GETTTING ALONG AND HE IS UPSET ABOUT IT. EXPLAINED TO HIM THAT HE IS NOT AT A "GET TOGETHER" BUT FAILED MISERABLY. HE IS COMPLIANT WITH MEDS. WILL FOLLOW POC
[2020-04-30 21:05] VITALS: BP 115/58
--- NOTE | 2020-05-01 14:07 | NUR ---
ALERT AND ORIENTED TO SELF ONLY.QUITE ,KEEPS TO SELF MUCH OF THE DAY.COMPLIANT WITH STAFF AND MEDS.WILL CONTINUE WITH CURRENT PLAN OF CARE.MONITOR FOR CHANGES AND SAFETY.
[2020-05-01 14:20] VITALS: BP 139/75
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
[2020-05-02 08:53] VITALS: BP 143/78
--- NOTE | 2020-05-02 16:45 | NUR ---
PT IS AWAKE AND ALERT TO PERSON. ASSESSMENT COMPLETED. PRESCRIBED MEDS PROVIDED. MED COMPLIANT. NO BEHAVIORS NOTED. WILL CPOC.
[2020-05-02 19:36] VITALS: BP 99/59
--- NOTE | 2020-05-02 21:21 | NUR ---
RECEIVED PATIENT IN DAYROOM, HE IS QUIET, VERY CONFUSED STILL, COMPLIANT WITH MEDS, HE IS STAYING TO HIMSELF MORE THIS EVENING. HAS TO BE SHOWN EVERY EVENING WHERE HIS ROOM IS. WILL FOLLOW POC
[2020-05-03 09:08] VITALS: BP 146/85
--- NOTE | 2020-05-03 17:34 | NUR ---
PT IS EATING DINNER WITH PEERS. ASSESSMENT COMPLETED. PRESCRIBED MEDS PROVIDED ORDERED. MED COMPLAINT. NO BEHAVIORS NOTED. WILL CPOC.
--- NOTE | 2020-05-03 19:53 | NUR ---
RECEIVED IN DAYROOM. SITTING IN A CHAIR WITH PEERS AT HIS SIDE. SOCIAL AT TIMES. CALM AND COOPERATIVE WITH CARE AND ASSESSMENT. NO SIGNS OF AGGRESSION. REDIRECT AND REORIENT NEEDED. CONTINUES TO SIT CALMLY IN DAYROOM. CONTINUE PLAN OF CARE.
[2020-05-03 20:10] VITALS: BP 135/69
--- NOTE | 2020-05-04 08:22 | PN ---
PATIENT:RAJNI CHAVEZ MEDICAL RECORD: [id number] LOCATION:[facility] ADMISSION DATE: 04/13/20 PROGRESS NOTE DATE OF SERVICE: 05/03/2020 SUBJECTIVE: The patient's case was discussed with staff. He has no new complaint. OBJECTIVE: The patient is in good behavioral control with poor insight about his situation. He tolerates his medicines well. ASSESSMENT: Vascular dementia. PLAN: The patient can be transitioned out of the hospital as soon as placement can be arranged. We are looking at a male alf or a alf with a male wing because of his tendency to be sexually inappropriate with women. TRANSINT:[id number] Voice Confirmation ID: [id number] DOCUMENT ID: [id number] MICHAEL ELLISON MD at 0822 CC: [id number] DICTATION DATE: 05/03/20 174 FOOD GENERAL MANAGER: 05/04/20 0140 ADM IN [facility] [address] [place] [address]
[2020-05-04 10:16] VITALS: BP 140/75
--- NOTE | 2020-05-04 17:33 | NUR ---
PT SITTING AND EATING DINNER AT THIS TIME. PT IS CALM AND COOPERATIVE. REDIRECT AND REORIENT NEEDED. NO AGRESSION NOTED. CAN MAKE NEEDS KNOWN. AMBULATES.
--- NOTE | 2020-05-04 20:18 | NUR ---
RECEIVED IN DAYROOM. SITTING IN A CHAIR WITH PEERS AT HIS SIDE. SOCIAL. CALM AND COOPERATIVE WITH CARE AND ASSESSMENT. NO SIGNS OF AGGRESSION. REDIRECT AND REORIENT NEEDED. CONTINUES TO SIT CALMLY IN DAYROOM. CONTINUE PLAN OF CARE.
[2020-05-05 08:36] VITALS: BP 169/81
--- NOTE | 2020-05-05 09:07 | PN ---
PATIENT:RAJNI CHAVEZ MEDICAL RECORD: [id number] LOCATION:[facility] ADMISSION DATE: 04/13/20 PROGRESS NOTE DATE OF SERVICE: 05/04/2020 SUBJECTIVE: The patient's case was discussed with staff. He has no new complaint. OBJECTIVE: The patient denies intent to harm himself or others. He is in good behavioral control. He is impaired cognitively. ASSESSMENT: Vascular dementia. PLAN: At this time, we are seeking placement and as soon as that is arranged, he can be discharged. TRANSINT:[id number] Voice Confirmation ID: [id number] DOCUMENT ID: [id number] MICHAEL ELLISON MD at 0907 CC: [id number] DICTATION DATE: 05/04/20 1636 COMMERCIAL SUBCONTRACTOR: 05/05/20 0121 ADM IN [facility] [address] [place] [address]
--- NOTE | 2020-05-05 10:21 | NUR ---
REC'D PT IN DAYROOM WITH PEERS SOCIALIZING. CALM AND COOPERATIVE WITH ASSESSMENT. PRESCRIBED MEDS PROVIDED ORDERED. MED COMPLIANT. NO BEHAVIORS NOTED. WILL CPOC.
--- NOTE | 2020-05-05 15:27 | NUR ---
Nutrition Follow-up: Diet: Regular PO intake: 100% x all meals Last BM: 05/01/20. Wt: 182# (05/02/20); Admit Wt: 174.4# (04/14/20) Meds reviewed. No new labs. Recommend continue current diet. RD following.
--- NOTE | 2020-05-05 15:31 | NUR ---
Nutrition Follow-up: Diet: Diabetic PO intake: 100% x all meals Last BM: 05/03/20. Wt: 263# (05/02/20); Admit Wt: 271# (04/18/20), 261# (04/21/20) Meds reviewed. No recent labs. Noted weight difference since admit. However, patient has been meeting estimated energy needs via adequate PO intake since admit. Recommend continue current diet. RD following.
[2020-05-05 20:27] VITALS: BP 122/54
[2020-05-06 11:19] VITALS: BP 98/47
--- NOTE | 2020-05-06 13:19 | PN ---
PATIENT:RAJNI CHAVEZ MEDICAL RECORD: [id number] LOCATION:[facility] ADMISSION DATE: 04/13/20 PROGRESS NOTE DATE OF SERVICE: 05/05/2020 SUBJECTIVE: The patient's case was discussed with staff. He has no new complaint. OBJECTIVE: The patient is in good behavioral control, but cognitively impaired. ASSESSMENT: 1. Vascular dementia. 2. Major depression. PLAN: The patient may be discharged as soon as placement is arranged. TRANSINT:[id number] Voice Confirmation ID: [id number] DOCUMENT ID: [id number] MICHAEL ELLISON MD at 1319 CC: [id number] DICTATION DATE: 05/05/20 1703 SPA MANAGER: 05/05/20 2354 ADM IN [place] [id number] [place] [address]
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
[2020-05-06 20:09] VITALS: BP 123/63
--- NOTE | 2020-05-06 23:31 | NUR ---
B) Patient is alert and oriented to self, very confused, calm and cooperative this shift, I) Administered scheduled medications as ordered,monitored for safety R) Mediation compliant, no signs of aggression this shift, P) Continue plan of care.
--- NOTE | 2020-05-07 12:57 | PN ---
PATIENT:RAJNI CHAVEZ MEDICAL RECORD: [id number] LOC[facility] ADMISSION DATE: 04/13/20 PROGRESS NOTE DATE OF SERVICE: 05/06/2020 SUBJECTIVE: The patient's case was discussed with staff. He has no new complaint. OBJECTIVE: The patient denies intent to harm himself or others. He is tolerating his medicines well. ASSESSMENT: Dementia. PLAN: The patient will be discharged as soon as placement is arranged. There are no clinical symptoms that require this level of care. This is purely a placement issue. TRANSINT:[id number] Voice Confirmation ID: [id number] DOCUMENT ID: [id number] MICHAEL ELLISON MD at 1257 CC: [id number] DICTATION DATE: 05/06/201715 LABELER: 05/07/20224 ADM IN [place] [id number] [place] [id number]
[2020-05-07 16:17] VITALS: BP 146/68
[2020-05-07 19:57] VITALS: BP 130/64
--- NOTE | 2020-05-07 22:15 | NUR ---
B.) PT IS ALERT AND ORIENTED TO SELF ONLY. HE IS RECEIVED IN THE DAYROOM SOCIALIZING WITH PEERS. HE IS CALM AND COOPERATIVE WITH STAFF. HE IS ABLE TO VOICE NEEDS AND WANTS. PT DENIES ANY SI. I.) PROVIDED PM MEDICATIONS PRESCRIBED. REDIRECT NEEDED. R.) COMPLIANT WITH ALL MEDICATIONS. EASY TO REDIRECT. P.) WILL CONTINUE TO MONITOR.
[2020-05-08 10:10] VITALS: BP 159/76
--- NOTE | 2020-05-08 14:41 | NUR ---
The patient's grand daughter came to the hospital in [place] to pick pack worker the patient's belongings and they could not confirm if the patient was here. The warehouse delivery driver was called and she called me and asked me to call the POA. I called Alejandra Agudelo and let her know that without Teena's ok I did not have the authority to release any belongings. She was understanding. I did let her know I'd pass a note on to Teena. I will actually be passing the note on to Kathy Danielson as she is interim programming equipment operator while Teena is gone this coming week. The patient remains confused, he knows his name, but he has poor insight into his situation and poor short term memory recall. He does not know how long he has been here. He amulates, toilets, and feeds himself. provide prescribed meds. The patient is compliant with meds. He has not shown any aggression, in fact, he is quite flirtatious with the female patients and at times he is noted holding hands with them. He is redirected to appropriate behavior and he and the staff joke about it. Continue POC.
[2020-05-08 20:00] VITALS: BP 110/51
--- NOTE | 2020-05-08 22:40 | NUR ---
B.) PT IS ALERT AND ORIENTED TO SELF ONLY. HE IS CALM, COOPERATIVE AND PLEASANT WITH STAFF. HE IS OBSERVED IN THE DAYROOM SOCIALIZING WITH FEMALE PEERS. HE IS ABLE TO VOICE NEEDS AND WANTS AT THIS TIME. I.) PROVIDED PM MEDICATIONS PRESCRIBED. REDIRECT NEEDED. R.) COMPLIANT WITH ALL MEDICATIONS. EASY TO REDIRECT. P.) WILL CONTINUE TO MONITOR.
[2020-05-09 09:09] VITALS: BP 137/70
--- NOTE | 2020-05-09 10:03 | NUR ---
The patient is awake and alert, he is oriented to self only, although, he is conversational and he is speaking to the ladies, he likes to flirt with staff and other patient's. He ambulates, toilets and feeds himself. Provide prescribed meds. The patient is compliant with meds. He has not shown any aggression. Continue POC.
[2020-05-09 20:00] VITALS: BP 124/58
--- NOTE | 2020-05-09 20:07 | NUR ---
RECEIVED IN DAYROOM. SITTING IN A CHAIR WITH PEERS AT HIS SIDE. CALM AND COOPERATIVE WITH CARE AND ASSESSMENT. NO SIGNS OF AGGRESSION. REDIRECT AND REOREINT NEEDED. CONTINUES TO SIT QUIETLY IN CHAIR. CONTINUE PLAN OF CARE.
[2020-05-10 09:05] VITALS: BP 128/60
--- NOTE | 2020-05-10 09:24 | NUR ---
ZACHARY SPOKE WITH PT'S GDTR, CHARITY. SHE DECLINED PT CHOICE FORM. PT HAS BEEN HARDER TO PLACE DUE TO HIS BEHAVIORS PRIOR TO ADMISSION AND BEING A FLIGHT RISK. PT IS IN NEED OF AN ALL MALE MEMORY CARE UNIT DUE TO HIS INAPPROPRIATE BEHAVIORS WITH FEMALE PATIENTS. NURSING HOMES IN [place] HAVE DECLINED HIM DUE TO BEING ON HOLD TO TAKE NEW ADMISSIONS FROM [facility] OR NOT HAVING REQUIREMENTS TO FIT PTS' NEEDS. PT HAS BEEN DECLINED FROM [facility], [facility], [facility], [facility], AND [facility]. PT HAS BEEN ACCEPTED MEDICALLY BY [facility] [place] [facility] AND THEY ARE WAITING FOR FINANCIAL CLEARANCE. CHARITY VERBALIZED UNDERSTANDING OF DISCUSSION.
--- NOTE | 2020-05-10 17:46 | NUR ---
PT SITTING IN DAYROOM WITH PEERS. ASSESSMENT COMPLETED. PRESCRIBED MEDS PROVIDED ORDERED. MED COMPLIANT. NO BEHAVIORS NOTED AT THIS TIME. WILL CPOC.
[2020-05-10 20:12] VITALS: BP 131/62
[2020-05-11 09:41] VITALS: BP 144/63
--- NOTE | 2020-05-11 09:50 | PN ---
PATIENT:RAJNI CHAVEZ MEDICAL RECORD: [id number] LOCATION:[facility] ADMISSION DATE: 04/13/20 PROGRESS NOTE DATE OF SERVICE: 05/10/2020 SUBJECTIVE: The patient's case was discussed with staff. He has no new complaint. OBJECTIVE: The patient is in good behavioral control and ready for discharge. ASSESSMENT: Vascular dementia. PLAN: As soon as discharge arrangements can be made, he is clinically appropriate and ready for transitioning out of the hospital. TRANSINT:[id number] Voice Confirmation ID: [id number] DOCUMENT ID: [id number] MICHAEL ELLISON MD at 0950 CC: [id number] DICTATION DATE: 05/10/[address] MAKER: 05/11/20 0012 ADM IN [place] [id number] [place] [address]
--- NOTE | 2020-05-11 12:22 | NUR ---
PT IS AWAKE AND ALERT. CALM AND COOPERATIVE WITH ASSESSMENT. PRESCRIBED MEDS PROVIDED ORDERED. MED COMPLIANT. NO BEHAVIORS NOTED AT THIS TIME. WILL CPOC.
[2020-05-11 20:43] VITALS: BP 140/55
--- NOTE | 2020-05-11 21:33 | NUR ---
RECEIVED IN DAYROOM. SITTING IN A CHAIR WITH PEERS AT HIS SIDE, CALM AND COOPERATIVE WITH CARE AND ASSESSMENT. NO SIGNS OF AGGRESSION. REDIRECT AND REORIENT NEEDED. RESTING IN BED WITH EYES OPEN AT THIS TIME. CONTINUE PLAN OF CARE.
--- NOTE | 2020-05-12 08:17 | NUR ---
REC'D PT IN HALLWAY BY NURSES STATION WITH PEERS. CALM AND COOPERATIVE WITH ASSESSMENT. PRESCRIBED MEDS PROVIDED ORDERED. MED COMPLIANT. NO BEHAVIORS NOTED AT THIS TIME. WILL CPOC.
[2020-05-12 09:10] VITALS: BP 155/72
--- NOTE | 2020-05-12 14:35 | PN ---
PATIENT:RAJNI CHAVEZ MEDICAL RECORD: [id number] LOCATION:[facility] ADMISSION DATE: 04/13/20 PROGRESS NOTE DATE OF SERVICE: 05/11/2020 SUBJECTIVE: The patient's case was discussed with staff. He has no new complaint. OBJECTIVE: The patient is impaired and has not shown no aggressive behavior. ASSESSMENT: No change in diagnoses. PLAN: The patient will be discharged as soon as placement can be arranged. TRANSINT:[id number] Voice Confirmation ID: [id number] DOCUMENT ID: [id number] MICHAEL ELLISON MD at 1435 CC: [id number] DICTATION DATE: 05/11/20 1538 INCINERATOR PLANT GENERAL SUPERVISOR: 05/11/20 2351 ADM IN [place] [address] [place] [address]
--- NOTE | 2020-05-12 14:55 | NUR ---
NUTRITION FOLLOW UP: COMMENTS: Patient has been eating 100% for the past 9 meals. Patient is able to feed himself per MD. DIET: Reglular Diet PO INTAKE: 100% x 9 meals WEIGHT: 04/25- 179 lbs; 05/09- 178 lbs BM: x 1 on 05/07 SIG MEDS: MVI, Imdur, Vit D, Protonix, Pravastatin, K Citrate SIG LABS: No new labs since March RECOMMENDATONS: -Continue Regular diet as tolerated RD to continue to follow and monitor patient DHS
--- NOTE | 2020-05-12 15:00 | NUR ---
PATIENT'S CELL PHONE SENT HOME WITH PATIENT'S DAUGHTER, CHARITY.
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
--- NOTE | 2020-05-12 20:15 | NUR ---
RECEIVED IN DAYROOM WATCHING TV WITH PEERS. CALM AND COOPERATIVE WITH CARE. NO BEHAVIORS NOTED TONIGHT WITH OTHER FEMALE PATIENTS. DENIES SI AT PRESENT TIME. ADMINISTERED SCHEDULED MEDICATIONS. MEDICATION COMPLIANT. REDIRECT AND REORIENT NEEDED. CONTINUE PLAN OF CARE.
[2020-05-12 20:37] VITALS: BP 107/59
[2020-05-13 09:22] VITALS: BP 169/73
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
--- NOTE | 2020-05-13 12:16 | PN ---
PATIENT:RAJNI CHAVEZ MEDICAL RECORD: [id number] LOCATION:[facility] ADMISSION DATE: 04/13/20 PROGRESS NOTE DATE OF SERVICE: 05/12/2020 SUBJECTIVE: The patient's case was discussed with staff. He has no new complaint. OBJECTIVE: The patient's clinical condition is unchanged. He is appropriate for discharge. ASSESSMENT: No change in diagnoses. PLAN: The patient can be discharged as soon as placement arrangements are made. TRANSINT:[id number] Voice Confirmation ID: [id number] DOCUMENT ID: [id number] MICHAEL ELLISON MD at 1216 CC: [id number] DICTATION DATE: 05/12/20 1513 EMBLEM FUSER TENDER: 05/13/20 0027 ADM IN [place] [id number] [place] [address]
--- NOTE | 2020-05-13 17:05 | PN ---
PATIENT:RAJNI CHAVEZ MEDICAL RECORD: [id number] LOCATION:[facility] ADMISSION DATE: 04/13/20 PROGRESS NOTE DATE OF SERVICE: 05/13/2020 SUBJECTIVE: The patient's case was discussed with staff. He has no new complaint. OBJECTIVE: The patient is unchanged clinically. ASSESSMENT: No change in diagnoses. PLAN: The patient can be discharged as soon as arrangements are made. TRANSINT:[id number] Voice Confirmation ID: [id number] DOCUMENT ID: [id number] MICHAEL ELLISON MD at 1705 CC: [id number] DICTATION DATE: 05/13/20 1247 MEMORIAL MASON: 05/13/20 1622 ADM IN [place] [id number] [place] [id number]
[2020-05-13 20:32] VITALS: BP 119/61
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
--- NOTE | 2020-05-14 07:57 | NUR ---
The patient woke up in a different world today. He is typically jovial, but this am he said to Be Macias "I am tired of people telling me what to do, I can be quite a bad ass if I need to be." Be said "Well, right now, please have a seat and they'll have breakfast out to you here in a little bit." Robert said "Now where's my ?" Be told him he didn't know the patient walked away and he began to flirt with a female patient and she told him "Get away from me." The patient walked away. Provide prescribed meds. The patient is compliant with meds. He is confused and has poor short term memory. He has poor insight into his situation. He ambulates, toilets, and feeds himself. Continue POC.
[2020-05-14 08:52] VITALS: BP 124/65
[2020-05-14 20:00] VITALS: BP 118/49
--- NOTE | 2020-05-14 20:14 | NUR ---
RECEIVED PATIENT IN DAYROOM, HE IS SITTING AND TALKING WITH TWO FEMALE PATIENTS, HE IS SEXUALLY INAPPRIORIATE AT TIMES AND HAS TO BE REDIRECTED, HE IS VERY CONFUSED. COMPLIANT WITH MEDS, HE IS CALM AT THIS TIME. WILL FOLLOW POC
[2020-05-15 09:12] VITALS: BP 156/78
--- NOTE | 2020-05-15 13:44 | NUR ---
ORIENTED TO SELF.PLEASANT AND COMPLIANT WITH STAFF BUT HAS TO BE TOLD TO KEEP HIS HANDS OFF FEMALE PEER.VERY POOR SHORT TERM MEMORY.PROVIDES SELF CARE.IS COMPLIANT WITH MEDS.WILL CONTINUE WITH CURRENT PLAN OF CARE,MONITOR FOR CHANGES AND SAFETY.
[2020-05-15 19:34] VITALS: BP 122/66
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
[2020-05-16 09:28] VITALS: BP 152/79
--- NOTE | 2020-05-16 15:30 | NUR ---
RECEIVED IN HALLWAY OUTSIDE OF NURSES STATION. CALM AND COOPERATIVE WITH CARE AND ASSESSMENT THIS MORNING. SEXUALLY INAPPROPRIATE WITH FEMALES. BECAME VERY AGITATED AND AGGRESSIVE THIS AFTERNOON. EXIT SEEKING. THREATENING TO BREAK WINDOWS TO GET OUT OF HERE. UNABLE TO BE REDIRECTED. PRN GEODON 10 MG IM GIVEN. CONTINUE PLAN OF CARE.
[2020-05-16 18:57] VITALS: BP 99/46
--- NOTE | 2020-05-16 19:35 | NUR ---
RECEIVED IN HALLWAY OUTSIDE OF NURSES STATION. WALKING AROUND TALKING WITH STAFF AND PEERS. CALM AND COOPERATIVE WITH CARE AND ASSESSMENT. NO SIGNS OF AGGRESSION. REDIRECT AND REORIENT NEEDED. RESTING IN BED WITH EYES CLOSED AT THIS TIME. CONTINUE PLAN OF CARE.
[2020-05-17 08:34] VITALS: BP 139/58
--- NOTE | 2020-05-17 15:16 | NUR ---
RECEIVED IN HALLWAY OUTSIDE OF NURSES STATION. CALM AND COOPERATIVE WITH CARE AND ASSESSMENT. NO AGGRESSIVE BEHAVIOR TODAY BUT BECOMES AGITATED WITH REDIRECTION. REDIRECT AND REORIENT NEEDED. PARTICIPATING IN GROUP AT THIS TIME. CONTINUE PLAN OF CARE.
[2020-05-17 19:39] VITALS: BP 102/69
--- NOTE | 2020-05-17 19:44 | NUR ---
RECEIVED IN DAYROOM. SITTING IN A CHAIR WITH PEERS AT HIS SIDE. CALM AND COOPERATIVE WITH CARE AND ASSESSMENT. NO SIGNS OF AGGRESSION. REDIRECT AND REORIENT NEEEDED. CONTINUES TO SIT CALMLY IN DAYROOM. CONTINUE PLAN OF CARE.
[2020-05-18 09:30] VITALS: BP 124/79
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
--- NOTE | 2020-05-18 12:00 | NUR ---
RECEIVED IN HALLWWAY OUTSIDE OF NURSES STATION. CALM AND COOPERATIVE WITH CARE AND ASSESSMENT. SEXUALLY INAPPROPRIATE WITH FEMALE PATIENTS. NO AGGRESSIVE BEHAVIOR TODAY. REDIRECT AND REORIENT NEEDED. EATING AT THIS TIME. CONTINUE PLAN OF CARE.
--- NOTE | 2020-05-18 20:53 | NUR ---
RECEIVED IN DAYROOM. SITTING IN A CHAIR WITH PEERS AT HIS SIDE. CALM AND COOPERATIVE WITH CARE AND ASSESSMENT. NO SIGNS OF AGGRESSION. REDIRECT AND REOREINT NEEDED. CONTINUES TO SIT CALMLY IN DAYROOM. CONTINUE PLAN OF CARE.
[2020-05-18 21:55] VITALS: BP 133/61
--- NOTE | 2020-05-19 08:33 | PN ---
PATIENT:RAJNI CHAVEZ MEDICAL RECORD: [id number] LOCATION:[facility] ADMISSION DATE: 04/13/20 PROGRESS NOTE DATE OF SERVICE: 05/18/2020 SUBJECTIVE: The patient's case was discussed with staff. He has no new complaint. OBJECTIVE: The patient is in good control today. The incident that happened over the weekend, I think, was once again associated with him wanting access to a female patient, but being denied it. This is of course additional evidence that he is in need of an adult male unit and efforts are being made to achieve that. Unfortunately, his financial issues are the impediment. He does not make enough money to be a private patient, but he makes too much to be on Medicaid. I do not know what this solution is, but he is clinically appropriate for discharge any time as long as it is an appropriate facility. There are facilities in the senior living that have all male units and we even have one that will accept him as long as the financial part of this can be accomplished. I know our inventory control planner/child protective services social worker is doing everything she can to do this. TRANSINT:[id number] Voice Confirmation ID: [id number] DOCUMENT ID: [id number] MICHAEL ELLISON MD at 0833 CC: [id number] DICTATION DATE: 05/18/20 1520 LABEL OPERATOR: 05/19/20 0152 ADM IN [facility] [address] [place] [address]
[2020-05-19 10:29] VITALS: BP 149/62
--- NOTE | 2020-05-19 14:19 | NUR ---
Nutrition Follow-up: Diet: Regular PO intake: 95-100% x last 9 meals Last BM: 05/17/20. Wt: 177# (05/16/20); Admit Wt: 174.4# (04/14/20) Meds reviewed. No new labs. Recommend continue current diet. RD following.
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
[2020-05-19 20:38] VITALS: BP 112/57
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
[2020-05-20 08:16] VITALS: BP 148/70
--- NOTE | 2020-05-20 15:23 | PN ---
PATIENT:RAJNI CHAVEZ MEDICAL RECORD: [id number] LOCATION:[facility] ADMISSION DATE: 04/13/20 PROGRESS NOTE DATE OF SERVICE: 05/19/2020 SUBJECTIVE: The patient's case was discussed with staff. He has no new complaint. OBJECTIVE: The patient's condition is unchanged. ASSESSMENT: No change in diagnoses. PLAN: The patient may be discharged as soon as arrangements have been made for placement. TRANSINT:[id number] Voice Confirmation ID: [id number] DOCUMENT ID: [id number] MICHAEL ELLISON MD at 1523 CC: [id number] DICTATION DATE: 05/19/20 1630 AUTOMATION LEAD: 05/20/20 0123 ADM IN [place] [address] [place] [address]
--- NOTE | 2020-05-20 16:49 | NUR ---
ORIENTED TO SELF ONLY.PLEASANT WITH STAFF AND PEERS.COMPLIANT WITH STAFF AND MEDS.QUITE TODAY,SELF ISOLATES.STATED TO THIS NURSE "THEY SAY SOMETHING IS WRONG WITH ME , I DON'T THINK ANYTHING IS WRONG WITH ME".HAS POOR INSITE TO WHY HE IS HERE.IS AMBULATORY WITH STEADY GAIT ,CONTINENT OF BOWEL AND BLADDER.
[2020-05-20 19:38] VITALS: BP 112/55
--- NOTE | 2020-05-21 00:26 | NUR ---
B) Patient is alert and oriented to person and sometimes to being in ahospital I) Administered scheduled medications as ordered, monitored for safety R) Mediation compliant, p) Continue plan of care.
--- NOTE | 2020-05-21 07:37 | NUR ---
The patient is awake and alert, he is pleasant and calm this am. He is ambulating independently. He has not shown any aggression this am. He has poor short term memory and poor insight into his situation. Provide prescribed meds, redirect to appropriate behavior. The patient is compliant with meds. Continue POC.
--- NOTE | 2020-05-21 11:00 | NUR ---
ZACHARY SPOKE WITH [facility] AND THEY HAVE ONE MORE PAPER TO GET FROM [facility] TO JUSTIFY MEDICAID. PT IS STILL ACCEPTED MEDICALLY AT THIS FACILITY.
--- NOTE | 2020-05-21 12:30 | PN ---
PATIENT:RAJNI CHAVEZ MEDICAL RECORD: [id number] LOCATION:[facility] ADMISSION DATE: 04/13/20 PROGRESS NOTE DATE OF SERVICE: 05/20/2020 SUBJECTIVE: The patient's case was discussed with staff. He has no new complaint. OBJECTIVE: The patient denies intent to harm himself or others. He is in good behavioral control but must be observed carefully when around female patients. ASSESSMENT: No change in diagnoses. PLAN: The patient will be transitioned out of the hospital as soon as placement is arranged. NTS:[id number] Voice Confirmation ID: [id number] DOCUMENT ID: [id number] MICHAEL ELLISON MD at 1230 CC: [id number] DICTATION DATE: 05/20/20 1619 SQL ENGINEER: 05/20/202010 ADM IN [facility] [address] [place] [address]
[2020-05-21 12:44] VITALS: BP 137/80
[2020-05-21 20:00] VITALS: BP 101/53
--- NOTE | 2020-05-22 04:15 | NUR ---
B.) PT IS ALERT AND ORIENTED TO SELF ONLY. PT IS OBSERVED SOCIALIZING WITH PEERS. HE HAS NO NEW BEHAVIORS ON THIS SHIFT. HE HAS A BRIGHT AFFECT. I.) PROVIDED PM MEDICATIONS PRESCRIBED. REDIRECT AT TIMES. R.) COMPLIANT WITH ALL MEDICATIONS. EASY TO REDIRECT. P.) WILL CONTINUE TO MONITOR.
--- NOTE | 2020-05-22 08:49 | PN ---
PATIENT:RAJNI CHAVEZ MEDICAL RECORD: [id number] LOCATION:[facility] ADMISSION DATE: 04/13/20 PROGRESS NOTE DATE OF SERVICE: 05/21/2020 SUBJECTIVE: The patient's case was discussed with staff. He has no new complaint. OBJECTIVE: The patient's clinical condition is unchanged. ASSESSMENT: No change in diagnoses. PLAN: The patient may be discharged as soon as placement is arranged. TRANSINT:[id number] Voice Confirmation ID: [id number] DOCUMENT ID: [id number] MICHAEL ELLISON MD at 0849 CC: [id number] DICTATION DATE: 05/21/20 1411 AUTOMATIC MOLD SANDER: 05/21/20 2349 ADM IN [place] [address] [place] [address]
--- NOTE | 2020-05-22 15:28 | NUR ---
The patient is awake and he is calm and pleasant, he enjoys interacting with staff and other patients. He ambulates, eats, and toilets independently. He has poor insight into his situation and poor short term memory recall. Provide prescribed meds. He is compliant with meds and unit milieu. Continue POC.
[2020-05-22 19:57] VITALS: BP 106/52
--- NOTE | 2020-05-23 00:10 | NUR ---
B.) PT IS ALERT AND ORIENTED TO SELF. NO AGGRESSION NOTED THIS SHIFT HE IS CALM AND COOPERATIVE WITH STAFF. HE IS OBSERVED SOCIALIZING WITH PEERS AND INTERACTING WELL WITH STAFF. I.) PROVIDED PM MEDICATIONS. R.) COMPLIANT WITH ALL MEDICATIONS. P.) WILL CONTINUE TO MONITOR.
--- NOTE | 2020-05-23 08:35 | NUR ---
The patient awakened in a pleasant mood, he knows the routine of the unit, but he has poor short term memory and poor insight into his situation. He has not shown any aggression this am. He ambulates, toilets and feeds himself independently. He follows direction easily. Provide prescribed meds. The patient is compliant with meds. Continue POC.
[2020-05-23 10:15] VITALS: BP 120/60
--- NOTE | 2020-05-23 11:59 | PN ---
PATIENT:RAJNI CHAVEZ MEDICAL RECORD: [id number] LOCATION:[facility] ADMISSION DATE: 04/13/20 PROGRESS NOTE DATE OF SERVICE: 05/22/2020 SUBJECTIVE: The patient's case was discussed with staff. He has no new complaint. OBJECTIVE: The patient is unchanged clinically. ASSESSMENT: No change in diagnoses. PLAN: The patient's discharge is pending, awaiting placement. TRANSINT:[id number] Voice Confirmation ID: [id number] DOCUMENT ID: [id number] MICHAEL ELLISON MD at 1159 CC: [id number] DICTATION DATE: 05/22/20 1444 NON DESTRUCTIVE EVALUATION MANAGER: 05/22/20 2218 ADM IN [place] [address] [place] [address]
--- NOTE | 2020-05-23 20:11 | NUR ---
RECEIVED IN DAYROOM. SITTING IN A CHAIR WITH PEERS AT HIS SIDE. CALM AND COOPERATIVE WITH CARE AND ASSESSMENT. NO SIGNS OF AGGRESSION. REDIRECT AND REOREINT NEEDED. TALKING WITH MED NURSE AT THIS TIME. CONTINUE PLAN OF CARE.
[2020-05-23 20:41] VITALS: BP 109/64
--- NOTE | 2020-05-24 09:00 | PN ---
PATIENT:RAJNI CHAVEZ AUDIE MEDICAL RECORD: [id number] LOCATION:[facility] ADMISSION DATE: 04/13/20 PROGRESS NOTE DATE OF SERVICE: 05/23/2020 SUBJECTIVE: The patient's case was discussed with staff. He has no new complaint. OBJECTIVE: The patient is in good behavioral control with poor insight about his situation. He is tolerating his medications well. ASSESSMENT: 1. Vascular dementia. 2. Major depression. PLAN: Current medicines have been reviewed and will be maintained. The patient may be discharged when placement is arranged. TRANSINT:[id number] Voice Confirmation ID: [id number] DOCUMENT ID: [id number] MICHAEL ELLISON MD at 0900 CC: [id number] DICTATION DATE: 05/23/20 1317 TELECOMMUNICATIONS ADMINISTRATOR: 05/23/20 2141 ADM IN [place] [address] [place] [address]
[2020-05-24 09:47] VITALS: BP 124/70
--- NOTE | 2020-05-24 15:45 | NUR ---
PT IS SITTING IN CHAIR IN DAYROOM WITH PEERS. CALM AND COOPERATIVE WITH ASSESSMENT. PRESCRIBED MEDS PROVIDED ORDERED. MED COMPLIANT. NO AGGRESSION NOTED AT THIS TIME. REDIRECT AND REORIENT NEEDED. WILL CPOC.
[2020-05-24 20:02] VITALS: BP 103/60
[2020-05-25 08:30] VITALS: BP 139/79
--- NOTE | 2020-05-25 11:11 | PN ---
PATIENT:RAJNI CHAVEZ MEDICAL RECORD: [id number] LOCATION:[facility] ADMISSION DATE: 04/13/20 PROGRESS NOTE DATE OF SERVICE: 05/24/2020 SUBJECTIVE: The patient's case was discussed with staff. He has no new complaint. OBJECTIVE: The patient is unchanged clinically. ASSESSMENT: No change in diagnoses. PLAN: The patient can be discharged at any time. Placement is still the issue. TRANSINT:[id number] Voice Confirmation ID: [id number] DOCUMENT ID: [id number] MICHAEL ELLISON MD at 1111 CC: [id number] DICTATION DATE: 05/24/20 1613 TRAFFIC CONTROLLER CABLE: 05/25/20 0310 ADM IN [place] [address] [place] [address]
--- NOTE | 2020-05-25 13:20 | NUR ---
PT IS RESTING IN DAYRROM WITH PEERS. ASSESSMENT COMPLETED. NO BEHAVIORS NOTED. PRESCRIBED MEDS PROVIDED ORDERED. MED COMPLIANT. WILL CPOC.
--- NOTE | 2020-05-25 19:58 | NUR ---
RECEIVED IN DAYROOM. WALKING ABOUT TALKING WITH STAFF AND PEERS. CALM AND COOPERATIVE WITH CARE AND ASSESSMENT. NO SIGNS OF AGGRESSION. REDIRECT AND REORIENT NEEDED. CONTINUES TO WALK ABOUT TALKING WITH STAFF AND PEERS. CONTINUE PLAN OF CARE.
[2020-05-25 20:20] VITALS: BP 124/67
--- NOTE | 2020-05-26 08:56 | PN ---
PATIENT:RAJNI CHAVEZ MEDICAL RECORD: [id number] LOCATION:[facility] ADMISSION DATE: 04/13/20 PROGRESS NOTE DATE OF SERVICE: 05/25/2020 SUBJECTIVE: The patient's case was discussed with staff. He has no new complaint. OBJECTIVE: The patient is in good behavioral control. He has poor insight about his situation. He is tolerating his medicines well. ASSESSMENT: 1. Vascular dementia. 2. Major depression. PLAN: The patient can be discharged as soon as placement is arranged. TRANSINT:[id number] Voice Confirmation ID: [id number] DOCUMENT ID: [id number] MICHAEL ELLISON MD at 0856 CC: [id number] DICTATION DATE: 05/25/20 1517 LAND CONSERVATION SPECIALIST: 05/25/20 2213 ADM IN [place] [address] [place] [address]
--- NOTE | 2020-05-26 10:20 | NUR ---
PT IS AWAKE AMD ALERT X 2. CALM AND COOPERATIVE WITH ASSESSMENT. PRESCRIBED MEDS PROVIDED ORDERED. MED COMPLAINT. NO BEHAVIORS NOTED. WILL CPOC.
[2020-05-26 13:17] VITALS: BP 184/69
--- NOTE | 2020-05-26 13:47 | NUR ---
Nutrition Follow-up: Diet: Regular PO intake: 100% x all meals Last BM: 05/22/20. Wt: 179.8# (05/23/20); Admit Wt: 174.4# (04/14/20) Meds reviewed. No new chem labs. Recommend continue current diet. RD following.
[2020-05-26 20:19] VITALS: BP 118/55
--- NOTE | 2020-05-27 02:37 | NUR ---
B.) PT IS ALERT AND ORIENTED TO SELF ONLY. HE IS CALM AND COOPERATIVE WITH STAFF. HE IS ABLE TO AMBULATE AND MAKE NEEDS KNOWN. NO AGGRESSION NOTED. I.) PROVIDED PM MEDICATIONS PRESCRIBED. REDIRECT NEEDED. R.) COMPLIANT WITH ALL MEDICATIONS. EASY TO REDIRECT. P.) WILL CONTINUE TO MONITOR.
--- NOTE | 2020-05-27 07:20 | NUR ---
The patient is awake and alert, he is calm, he has not shown any aggression today. He has poor short term memory recall, he has poor insight into his situation. He enjoys interacting with staff and peers. Provide prescribed meds. The patient ambulates, toilets, and feeds himself. Continue POC.
[2020-05-27 09:39] VITALS: BP 147/74
--- NOTE | 2020-05-27 10:18 | PN ---
PATIENT:RAJNI CHAVEZ MEDICAL RECORD: [id number] LOCATION:[facility] ADMISSION DATE: 04/13/20 PROGRESS NOTE DATE OF SERVICE: 05/26/2020 SUBJECTIVE: The patient's case was discussed with staff. He has no new complaint. OBJECTIVE: The patient's clinical condition has not changed. ASSESSMENT: No change in diagnoses. PLAN: The patient may be discharged as soon as placement is arranged. NTS:[id number] Voice Confirmation ID: [id number] DOCUMENT ID: [id number] MICHAEL ELLISON MD at 1018 CC: [id number] DICTATION DATE: 05/26/20 1557 CONTROL SYSTEMS TECHNICIAN: 05/26/202025 ADM IN [place] [address] [place] [address]
[2020-05-27 20:07] VITALS: BP 104/50
--- NOTE | 2020-05-27 21:50 | NUR ---
RECEIVED PATIENT IN DAYROOM, HE IS CALM, CONFUSED, NOT ARGUMENTATIVE, COOPERATIVE, COMPLIANT WITH MEDS. MAKES HIS NEEDS KNOWN. WILL FOLLOW POC
[2020-05-28 09:00] VITALS: BP 140/69
--- NOTE | 2020-05-28 11:54 | NUR ---
The patient is confused, he knows his name. He has poor short term memory recall, and poor insight into his situation. He has not shown any aggression today. He ambulates, toilets, and eats independently. Provide prescribed meds. The patient is compliant with meds. Continue POC,
[2020-05-28 20:00] VITALS: BP 104/59
--- NOTE | 2020-05-28 22:07 | NUR ---
RECEIVED PATIENT IN DAYROOM, HE IS STAYING TO HIMSELF, CONFUSED, COMPLIANT WITH MEDS, COOPERATIVE. WILL FOLLOW POC
[2020-05-29 09:18] VITALS: BP 153/57
--- NOTE | 2020-05-29 12:00 | NUR ---
RECEIVED IN HALLWAY OUTSIDE OF NURSES STATION. CALM AND COOPERATIVE [facility] C[facility] ADN ASSESSMENT. NO AGGRESSIVE BEHAVIORS. HELPFUL WITH OTHER PATIENTS. REDIRECT AND REORIENT NEEDED. EATING AT THIS TIME. CONTINUE PLAN OF CARE.
[2020-05-29 21:28] VITALS: BP 118/58
--- NOTE | 2020-05-29 21:38 | NUR ---
RECEIVED PATIENT IN DAYROOM, SITTING IN CHAIR, HE WAS MORE TALKATIVE TONIGHT COMPARED TO THE LAST TWO NIGHTS, HE IS CONFUSED BUT HE IS TRYING TO BE HELPFUL WITH ONE OF THE OTHER PATIENTS. COMPLIANT WITH MEDS. CAN MAKE ALL OF HIS NEEDS KNOWN AND CAN PERFORM SELF CARE. WILL FOLLOW POC
[2020-05-30 08:53] VITALS: BP 122/65
--- NOTE | 2020-05-30 12:00 | NUR ---
RECEIVED IN HALLWAY OUTSIDE OF NURSES STATION. CALM AND COOPERATIVE WITH CARE AND ASSESSMENT. HELPFUL WITH STAFF AND OTHER PATIENTS. NO AGGRESSIVE BEHAVIOR. REDIRECT AND REORIENT NEEDED. EATING AT THIS TIME. CONTINUE PLAN OF CARE.
[2020-05-30 20:03] VITALS: BP 120/52
--- NOTE | 2020-05-30 21:34 | NUR ---
RECEIVED IN DAYROOM. SITTING IN A CHAIR WITH PEERS AT HER SIDE. CALM AND COOPERATIVE WITH CARE AND ASSESSMENT. NO SIGNS OF AGGRESSION. REDIRECT AND REORIENT NEEDED. IN HIS BEDROOM GETTING READY FOR BED AT THIS TIME. CONTINUE PLAN OF CARE.
[2020-05-31 08:49] VITALS: BP 158/72
--- NOTE | 2020-05-31 09:09 | NUR ---
PT IS AWAKE ALERT X 2. ASSESSMENT COMPLETED. PRESCRIBED MEDS PROVIDED ORDERED. REDIRECT AND REORIENT NEEDED. PT IS CALM, COOPERATIVE, AND PLEASANT. WILL CPOC.
--- NOTE | 2020-05-31 09:13 | PN ---
PATIENT:RAJNI CHAVEZ MEDICAL RECORD: [id number] LOCATION:[facility] ADMISSION DATE: 04/13/20 PROGRESS NOTE DATE OF SERVICE: 05/27/2020 SUBJECTIVE: The patient's case was discussed with staff. He has no new complaint. OBJECTIVE: The patient's condition is unchanged. ASSESSMENT: 1. Vascular dementia. 2. Major depression. PLAN: The patient may be transitioned out of the hospital as soon as placement is arranged. TRANSINT:[id number] Voice Confirmation ID: [id number] DOCUMENT ID: [id number] MICHAEL ELLISON MD at 0913 CC: [id number] DICTATION DATE: 05/27/20 1643 SOFTWARE RELEASE MANAGER: 05/27/20 1843 ADM IN [place] [address] [place] [address]
[2020-05-31 20:28] VITALS: BP 110/67
[2020-06-01 09:17] VITALS: BP 146/63
--- NOTE | 2020-06-01 12:00 | NUR ---
RECEIVED IN HALLWAY OUTSIDE OF NURSES STATION. SOCIALIZING WITH OTHER PATIENTS. CALM AND COOPERATIVE WITH CARE AND ASSESSMENT. NO AGGRESSION. TRIES TO BE HELPFUL TO OTHER PATIENTS. REDIRECT AND REORIENT NEEDED. EATING AT THIS TIME. CONTINUE PLAN OF CARE.
[2020-06-01 19:53] VITALS: BP 127/55
--- NOTE | 2020-06-01 22:26 | NUR ---
RECEIVED IN DAYROOM. SITTING IN A CHAIR WITH PEERS AT HIS SIDE. SOCIAL. CALM AND COOPERATIVE WITH CARE AND ASSESSMENT. NO SIGNS OF AGGRESSION. REDIRECT AND REORIENT NEEDED. RESTING IN BED WITH EYES CLOSED AT THIS TIME. CONTINUE PLAN OF CARE.
--- NOTE | 2020-06-02 08:22 | PN ---
PATIENT:RAJNI CHAVEZ MEDICAL RECORD: [id number] LOCATION:[facility] ADMISSION DATE: 04/13/20 PROGRESS NOTE DATE OF SERVICE: 06/01/2020 SUBJECTIVE: The patient's case was discussed with staff. OBJECTIVE: The patient's condition is unchanged. ASSESSMENT: No change in diagnoses. PLAN: The patient may be transitioned out of the hospital as soon as placement is arranged. TRANSINT:[id number] Voice Confirmation ID: [id number] DOCUMENT ID: [id number] MICHAEL ELLISON MD at 0822 CC: [id number] DICTATION DATE: 06/01/20 1702 AGILE COACH: 06/02/20 0111 ADM IN [place] [id number] [place] [id number]
[2020-06-02 09:15] VITALS: BP 127/73
--- NOTE | 2020-06-02 10:04 | NUR ---
Nutrition Follow-up: Diet: Regular PO intake: 100% x all meals Last BM: 05/28/20. Wt: 187# (05/30/20); Admit Wt: 174.4# (04/14/20) Meds noted: miralax (PRN). Labs noted: POC Glu 164(H). Recommend Diabetic diet 2/2 elevated glucose and weight trending up. RD following.
--- NOTE | 2020-06-02 13:52 | NUR ---
RECEIVED THIS AM SITTING IN CHAIR IN HALLWAY AT NURSES STATION.IS COMPLIANT WITH STAFF AND MEDS.IS ORIENTED TO SELF WITH CONFUSION.AMBULATES.NO AGGRESSION OBSERVED.WILL CONTINUE WITH CURRENT PLAN OF CARE,MONITOR FOR CHANGES AND SAFETY.
[2020-06-02 20:11] VITALS: BP 115/64
--- NOTE | 2020-06-02 23:29 | NUR ---
B) Patient is alert and oriented to person and place, very anxious at times, I) Administered scheduled medications as ordered, monitored for safety R) Mediation compliant, no behaviors this shift, P) Continue plan of care.
--- NOTE | 2020-06-03 08:48 | PN ---
PATIENT:RAJNI CHAVEZ MEDICAL RECORD: [id number] LOCATION:[facility] ADMISSION DATE: 04/13/20 PROGRESS NOTE DATE OF SERVICE: 06/02/2020 SUBJECTIVE: The patient's case was discussed with staff. OBJECTIVE: The patient has had no change in his clinical condition. ASSESSMENT: No change in diagnoses. PLAN: The patient will be discharged as soon as placement is arranged. There is no clinical reason for him to still be at this level of care, they are just simply is not an appropriate receiving facility. TRANSINT:[id number] Voice Confirmation ID: [id number] DOCUMENT ID: [id number] MICHAEL ELLISON MD at 0848 CC: [id number] DICTATION DATE: 06/02/20 1549 PERSONAL LINES ACCOUNT EXECUTIVE: 06/02/202034 ADM IN [facility] [address] [place] [address]
[2020-06-03 10:23] VITALS: BP 139/66
--- NOTE | 2020-06-03 13:00 | NUR ---
BIANKA TORREST OBSERVED HIM TALKING INAPPROPRIATELY WITH FEMALE PEER.ASKED HIM TO MOVE TO ANOTHER CHAIR AND VISIT WITH MALE PATIENT.HE BECAME,VERY AGGRESSIVE,STATED 'I'M TIRED OF BEING TOLD WHAT TO DO,I WAS DOING NOTHING WRONG,JUST HAVING A CONVERSATION WITH A NICE LADY." CALLED [facility] AND THREATENED TO BREAK THROUGH WINDOW.ENCOURAGED TO GO INTO DINNING ROOM AND RELAX FOR AWHILE. SECURITY WAS CALLED BUT NOT NEEDED SINCE HE WENT INTO ANOTHER ROOM TO BE BY HIMSELF.
--- NOTE | 2020-06-03 13:53 | NUR ---
SITTING QUIETLY.IS ORIENTED TO SELF BUT VERY CONFUSED.AMBULATES.COMPLIANT WITH MEDS .USUALLY COMPLIANT WITH STAFF.ENJOYS TALKING WITH FEMALE PEERS AND IS SEXUALLY INAPPROPRIATE AT TIMES.WILL CONTINUE WITH CURRENT PLAN OF CARE,MONITOR FOR CHANGES AND SAFETY.
[2020-06-03] MEDS ORDERED: SEROQUEL25 MG PO (15:14)
[2020-06-03 20:03] VITALS: BP 165/66
--- NOTE | 2020-06-04 02:57 | NUR ---
B) Patient is alert and oriented to person, very confused, no short term memory I) Administered scheduled medications as ordered, monitored for safety R) Mediation compliant, no behaviors P) Continue plan of care.
[2020-06-04 07:46] VITALS: BP 129/81
--- NOTE | 2020-06-04 09:09 | PN ---
PATIENT:RAJNI CHAVEZ MEDICAL RECORD: [id number] LOCATION:[facility] ADMISSION DATE: 04/13/20 PROGRESS NOTE DATE OF SERVICE: 06/03/2020 SUBJECTIVE: The patient's case was discussed with staff. He has no new complaint. OBJECTIVE: The patient's clinical condition is unchanged. ASSESSMENT: No change in diagnoses. PLAN: The patient has been accepted at the [facility] and will be transitioned there tomorrow. TRANSINT:[id number] Voice Confirmation ID: [id number] DOCUMENT ID: [id number] MICHAEL ELLISON MD at 0909 CC: [id number] DICTATION DATE: 06/03/20 1512 PRODUCTION EXPERT: 06/03/202058 ADM IN [place] [address] [place] [address]
--- NOTE | 2020-06-04 10:06 | NUR ---
pt sitting socialzing with peers. pt is calm and cooperative. no aggression noted. pt is confused and alert to self only. redirect and reorient if needed. pt is compliant with meds, vitals and assessments. pt can make needs known. adl independent. ambulates. will cont plan of care.
[2020-06-04 20:33] VITALS: BP 138/55
--- NOTE | 2020-06-04 21:15 | NUR ---
B.) PT IS ALERT AND ORIENTED TO SELF ONLY. HE IS CALM AND COOPERATIVE WITH STAFF. HE IS SOCIALIZING WITH PEERS. NO AGGRESSION NOTED. HE IS ABLE TO VOICE NEEDS AND WANTS. I.) PROVIDED PM MEDICATIONS PRESCRIBED. REDIRECT NEEDED. R.) COMPLIANT WITH ALL MEDICATIONS. EASY TO REDIRECT. P.) WILL CONTINUE TO MONITOR.
--- NOTE | 2020-06-05 07:31 | NUR ---
The patient is awake and he is oriented to self, he believes he is a young man, he likes to joke and socialize. He ambulates, toilets, and eats independently. Provide prescribed meds. The patient is compliant with unit rules and milieu. He has not shown any aggression today. He has poor insight into his situation, he has poor short term memory recall. Continue POC.
[2020-06-05 08:12] VITALS: BP 135/66
[2020-06-05 21:45] VITALS: BP 134/69
--- NOTE | 2020-06-05 21:53 | NUR ---
B.) PT IS ALERT AND ORIENTED TO SELF ONLY. HE HAS POOR INSIGHT INTO HIS SITUATION. HE IS SOCIAL AND INTERACTIVE WITH PEERS. HE IS CALM AND COOPERATIVE WITH STAFF. I.) PROVIDED PM MEDICATIONS PRESCRIBED. REDIRECT NEEDED. R.) COMPLIANT WITH ALL MEDICATIONS. EASY TO REDIRECT. P.) WILL CONTINUE TO MONITOR.
[2020-06-06 08:11] VITALS: BP 149/72
--- NOTE | 2020-06-06 15:42 | NUR ---
The patient received a shave, he is currently in the dining room, staff have offered him ice cream and to come in the day room as there is visitation going on.
--- NOTE | 2020-06-06 16:46 | NUR ---
B) patient up ambulating around facility. Patient having episodes of obsession with another resident. He will pick her out in group and theraputic activities. he wants to touch her, straighten her robe and blankets, talks to her in a lower tone of voice as in a secret mode like covering his mouth and leaning over toward her. He talks to the other patient as if she is his girlfriend. I) attempted many times to redirect him away from patient and jury consultant nurse redircted him away from the other patient and her visiting ..this patient would just set and stare at the couple. He states "he loves that girl" and keeps referring the "that girl" and "her dad". Dr. Brown present and aware of the changes. R) attempted to redirect patient into another area of the unit and provided 1 to 1 conversation and to allow him to verbalize any fears and obsessions.I) will continue to assess and interveme with situation.
--- NOTE | 2020-06-06 16:50 | NUR ---
The patient is very anxious and he is tearful and crying. He is sad that he can not remember anything from his life. Talked with him for about half an hour. Provided ativan 0.5 mg po now, will monitor his mood.
[2020-06-06 20:41] VITALS: BP 106/51
--- NOTE | 2020-06-06 20:49 | NUR ---
RECEIVED IN DAYROOM. SITTING IN A CHAIR WITH PEERS AT HIS SIDE. CALM AND COOPERATIVE WITH CARE AND ASSESSMENT. NO SIGNS OF AGGRESSION. REDIRECT AND REORIENT NEEDED. SITTING IN DAYROOM DURING GROUP AT THIS TIME. CONTINUE PLAN OF CARE.
[2020-06-07 09:00] VITALS: BP 140/62
--- NOTE | 2020-06-07 16:43 | NUR ---
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
--- NOTE | 2020-06-07 19:47 | NUR ---
RECEIVED IN DAYROOM. SITTING IN A CHAIR WITH PEERS AT HIS SIDE. SOCAIL. CALM AND COOPERATIVE WITH CARE AND ASSESSMENT. NO SIGNS OF AGGRESSION. REDIRECT AND REORIENT NEEDED. CONTINUES TO SIT CALMLY IN DAYROOM. CONTINUE PLAN OF CARE.
[2020-06-07 20:06] VITALS: BP 170/75
[2020-06-08 09:00] VITALS: BP 140/74
--- NOTE | 2020-06-08 09:10 | PN ---
PATIENT:RAJNI CHAVEZ MEDICAL RECORD: [id number] LOCATION:[facility] ADMISSION DATE: 04/13/20 PROGRESS NOTE DATE OF SERVICE: 06/07/2020 SUBJECTIVE: The patient's case was discussed with staff. He has no new complaint. OBJECTIVE: The patient denies intent to harm himself or others. He is tolerating his medicines well. ASSESSMENT: No change in diagnoses. PLAN: The patient can be discharged as soon as placement is arranged. I am told we are very close on that, but again that has happened before. I do not think anyone is being dishonest. I just know he is difficult to place and I cannot just discharge him without an appropriate setting. TRANSINT:[id number] Voice Confirmation ID: [id number] DOCUMENT ID: [id number] MICHAEL ELLISON MD at 0910 CC: [id number] DICTATION DATE: 06/07/20 1658 AEROLOGIST: 06/08/20 0235 ADM IN [facility] [address] [place] [address]
--- NOTE | 2020-06-08 17:50 | NUR ---
PT IS CALM AND COOPERATIVE WITH ASSESSMENT. PRESCRIBED MEDS PROVIDED ORDERED. MED COMPLIANT. WILL CPOC.
[2020-06-08 20:27] VITALS: BP 151/68
--- NOTE | 2020-06-08 20:47 | NUR ---
RECEIVED IN DAYROOM. SITTING IN A CHAIR WITH PEERS AT HIS SIDE. CALM AND COOPERATIVE WITH CARE AND ASSESSMENT. NO SIGNS OF AGGRESSION. REDIRECT AND REORIENT NEEDED. CONTINUES TO SIT WITH PEERS SOCIALIZING WITH PEERS. CONTINUE PLAN OF CARE.
[2020-06-09 07:30] VITALS: BP 133/73
--- NOTE | 2020-06-09 10:41 | NUR ---
Nutrition Follow-up: Diet: Regular PO intake: ~89% average x last 9 meals Last BM: 06/06/20. Wt: 184# (06/06/20); Admit Wt: 174.4# (04/14/20) Meds reviewed. No new labs. Recommend continue current diet. RD following.
--- NOTE | 2020-06-09 11:20 | PN ---
PATIENT:RAJNI CHAVEZ MEDICAL RECORD: [id number] LOCATION:[facility] ADMISSION DATE: 04/13/20 PROGRESS NOTE DATE OF SERVICE: 06/08/2020 SUBJECTIVE: The patient's case was discussed with staff. OBJECTIVE: The patient's clinical condition is unchanged. ASSESSMENT: No change in diagnoses. PLAN: The patient will be transitioned out of the hospital as soon as placement is arranged. NTS:[id number] Voice Confirmation ID: [id number] DOCUMENT ID: [id number] MICHAEL ELLISON MD at 1120 CC: [id number] DICTATION DATE: 06/08/20 1623 TELEPHONE TRIAGE NURSE: 06/09/20 0047 ADM IN [facility] [address] [id number]
--- NOTE | 2020-06-09 14:26 | NUR ---
GEODON 10MG IM GIVEN PER PRN ORDER FOR INCREASED ANXIETY. UNABLE TO REDIRECT PT AT THIS TIME.
--- NOTE | 2020-06-09 21:59 | NUR ---
B.) PT IS ALERT AND ORIENTED TO SELF ONLY. HE HAS POOR INSIGHT INTO HIS SITUATION. HE IS OBSERVED ATTEMPTING TO ASSIST PATIENTS FIND THEIR ROOMS. HE IS CALM AND COOPERATIVE WITH STAFF. I.) PROVIDED PM MEDICATIONS. REDIRECT NEEDED. R.) COMPLIANT WITH ALL MEDICATIONS. EASY TO REDIRECT. P.) WILL CONTINUE TO MONITOR.
[2020-06-09 22:38] VITALS: BP 116/53
[2020-06-10 07:40] VITALS: BP 141/57
--- NOTE | 2020-06-10 10:08 | NUR ---
PT SITTING IN CHAIR SOCIALIZING AT THIS TIME. PT IS FRIENDLY AND COOPERATIVE WITH STAFF AND PTS. PT IS CONFUSED AND DISORIENTED. NO AGGRESSION NOTED. PT CAN MAKE NEEDS KNOWN. PT IS COMPLIANT WITH MEDS, VITALS AND ASSESSMENTS. REDIRECT AND REORIENT NEEDED. WILL CONT PLAN OF CARE.
--- NOTE | 2020-06-10 20:37 | NUR ---
B.) PT IS ALERT AND ORIENTED TO SELF ONLY. HE HAS POOR INSIGHT INTO HIS SITUATION. HE IS PLEASANT, CALM AND COOPERATIVE WITH STAFF TODAY. HE IS OBSERVED SOCIALIZING WITH PEERS DURING GROUP THIS EVENING. HE IS ABLE TO AMBULATE ON HIS OWN AND MAKE HIS NEEDS KNOWN. I.) PROVIDED PM MEDICATIONS PRESCRIBED. REDIRECT NEEDED. R.) COMPLIANT WITH ALL MEDICATIONS. EASY TO REDIRECT. P.) WILL CONTINUE TO MONITOR.
[2020-06-10 21:07] VITALS: BP 141/55
--- NOTE | 2020-06-11 07:32 | NUR ---
The patient is awake and he interacting with other patients. He has poor insight into his situation, he knows he is 73, but he also talks like he is a young man. He has poor short term memory. He talks about his long term acute care registered nurse past about the [place] and his spouse. Provide prescribed meds. The patient is compliant with meds. He is able to ambulate, toilet, and feed himself. He is walking in the hallway currently awaiting breakfast. Continue POC.
[2020-06-11 08:00] VITALS: BP 159/69
--- NOTE | 2020-06-11 20:33 | NUR ---
RECEIVED PATIENT IN DAYROOM SITTING QUIETLY, HE IS VERY CONFUSED ALWAYS, HE IS CALMLY SITTING AND WATCHING T.V. HE IS STILL FRIENDLY WITH THE FEMALE STAFF AND RESIDENTS AND HAS TO BE WATCHED CLOSELY. COMPLIANT WITH MEDS. WILL FOLLOW POC
[2020-06-11 20:36] VITALS: BP 134/63
[2020-06-12 09:56] VITALS: BP 135/72
--- NOTE | 2020-06-12 12:36 | PN ---
PATIENT:RAJNI CHAVEZ MEDICAL RECORD: [id number] LOCATION:[facility] ADMISSION DATE: 04/13/20 PROGRESS NOTE DATE OF SERVICE: 06/10/2020 SUBJECTIVE: The patient's case was discussed with staff. OBJECTIVE: The patient's clinical condition is unchanged. ASSESSMENT: No change in diagnoses. PLAN: The patient will be discharged as soon as placement can be arranged. TRANSINT:[id number] Voice Confirmation ID: [id number] DOCUMENT ID: [id number] MICHAEL ELLISON MD at 1236 CC: [id number] DICTATION DATE: 06/10/20 1147 CALCULATOR OPERATOR: 06/10/20 1231 ADM IN [place] [id number] [place] [address]
--- NOTE | 2020-06-12 13:24 | NUR ---
PT SITTING IN CHAIR SOCIALIZING WITH PEERS. PT IS CALM AND COOPERATIVE WITH STAFF AND PEERS. PT IS COMPLIANT WITH MEDS, VITALS AND ASSESSMENTS. NO AGGRESSION NOTED. PT IS CONFUSED AND DISORIENTED. REDIRECT AND REORIENT NEEDED. PT CAN MAKE NEEDS KNOWN. AMBULATES. COMPLIANT WITH MEDS, VITALS AND ASSESSMENTS. WILL CONT TO MONITOR.
--- NOTE | 2020-06-12 20:36 | NUR ---
RECEIVED PATIENT IN DAYROOM, HE IS CALM, SITTING BESIDE A FEMALE PATIENT WHICH IS MOST OF THE TIME. HE IS CONFUSED. COMPLIANT WITH MEDS. WILL FOLLOW POC
[2020-06-12 21:41] VITALS: BP 102/51
[2020-06-13 08:47] VITALS: BP 133/60
--- NOTE | 2020-06-13 14:54 | NUR ---
RECEIVED IN HALLWAY OUTSIDE OF NURSES STATION. SOCIALIZING WITH STAFF AND OTHER PATIENTS. CALM AND COOPERATIVE WITH CARE AND ASSESSMENT. NO AGGRESSIVE BEHAVIOR. REDIRECT AND REORIENT NEEDED. PARTICIPATING IN GROUP AT THIS TIME. CONTINUE PLAN OF CARE.
[2020-06-13 20:16] VITALS: BP 118/72
[2020-06-14 08:45] VITALS: BP 106/50
--- NOTE | 2020-06-14 08:53 | NUR ---
REC'D PT IN HALLWAY BY NURSES STEVE. CALM AND COOPERATIVE WITH ASSESSMENT. NO BEHAVIORS NOTED. PRESCRIBED MEDS PROVIDED ORDERED. MED COMPLIANT. REDIRECT AND REORIENT NEEDED. WILL CPOC.
--- NOTE | 2020-06-14 13:53 | NUR ---
ZACHARY CALLED AND SPOKE WITH PT'S GDTR AND CHARITY CASAS. PT IS LEAVING TODAY TO GO TO [facility]. ZACHARY DISCUSSED DISCHARGE PLAN AND DISEASE PROGRESSION. CHARITY VERBALIZED UNDERSTANDING.
--- NOTE | 2020-06-14 16:42 | NUR ---
PT DISCHARGED TO [facility] VIA ELEVATOR REPAIRER HELPER. ALL DISCHARGE PAPERWORK FAXED AND COPY SENT WITH PT. ALL BELONGINGS SENT WITH PT AT THIS TIME.
--- NOTE | 2020-06-16 13:49 | DS ---
PATIENT:RAJNI CHAVEZ :47 MEDICAL RECORD: [id number] DISCHARGE SUMMARY ADMISSION DATE: 04/13/20 DISCHARGE DATE: 06/14/20 ADDENDUM The patient had difficulty being from women at the assisted living center. He was often confused about these women and this would lead to aggression. HOSPITAL COURSE: The patient was admitted to the hospital and fully evaluated once again. He has a known history of this sort of problem. He is consistently and regularly disruptive. This was his third hospitalization in short order, and each time the assisted living center had tried him back and it had failed. The treatment team and I felt that this patient needed a male unit and it was difficult to find one. They are not very common and then with the COVID-19 pandemic it was difficult to place him and subsequently we were able to do so in a penitentiary in [place], [place], which is some distance from here. He was subsequently discharged there. DISCHARGE DIAGNOSES: AXIS I: Major vascular neurocognitive disorder. AXIS II: None. AXIS III: Hypertension and coronary artery disease. AXIS IV: Moderate stressors. AXIS IV: Global assessment of functioning is 40. PLAN: At the time of discharge, the patient was in good behavioral control. He had no evidence of acute or direct dangerousness to himself or others. Followup is to be with his primary care physician in the penitentiary and he is going to be in an all-male wing of the penitentiary and hopefully that will resolve the problem with his agitated behavior associated with women. TRANSINT:[id number] Voice Confirmation ID: [id number] DOCUMENT ID: [id number] MICHAEL ELLISON MD at 1349 CC: [id number] DICTATION DATE: 06/15/20 1606 EXTERNAL RELATIONS DIRECTOR: 06/16/20 1003 DIS IN 06/14/20 [id number] [place] [address]
--- NOTE | 2020-06-16 13:49 | DS ---
PATIENT:RAJNI CHAVEZ :47 MEDICAL RECORD: [id number] DISCHARGE SUMMARY ADMISSION DATE: 04/13/20 DISCHARGE DATE: 06/14/20 IDENTIFYING DATA: The patient is 74 years old and known to me from previous clinical contact. CHIEF COMPLAINT: Aggression. HISTORY OF PRESENT ILLNESS: The patient has had an extensive stay here on the behavioral unit and was discharged to the [facility] the day prior. He was not happy about going back there and when he arrived there he was violent agitated and aggressive with staff who returned him to us after a very brief stay at the facility. HOSPITAL COURSE: This patient was readmitted to the hospital. He had some aggressive behaviors here for the first few days. His aggression relates to his desire to be with or around certain women, some of which he has delusions about and believes they are his or that they are attracted to him. TRANSINT:[id number] Voice Confirmation ID: [id number] DOCUMENT ID: [id number] MICHAEL ELLISON MD at 1349 CC: [id number] DICTATION DATE: 06/15/[address] BAILIFF: 06/16/20 1006 DIS IN 06/14/20 [facility] [address] [place] [id number]
== END 2020-06-14 16:45 | DRG 884 ==
LOC: D.PSYCH 18:50
PROVIDERS: Family Medicine; ADMIT Psychiatry & Neurology Psychiatry; ATTEND Psychiatry & Neurology Psychiatry
DX: F01.51 Vascular dementia, unspecified severity, with behavioral disturbance (principal); E78.5 Hyperlipidemia, unspecified; I10 Essential (primary) hypertension; I25.10 Atherosclerotic heart disease of native coronary artery without angina pectoris; M19.90 Unspecified osteoarthritis, unspecified site; E55.9 Vitamin D deficiency, unspecified; N18.9 Chronic kidney disease, unspecified; R73.03 Prediabetes; K21.9 Gastro-esophageal reflux disease without esophagitis; K59.00 Constipation, unspecified; G62.9 Polyneuropathy, unspecified; F32.9 Major depressive disorder, single episode, unspecified

== ENCOUNTER 2021-03-20 11:24 | Inpatient (IN) | payer MEDICARE ==
[~2021-03-20] VITALS: Ht 172.7 cm; Wt 81.6 kg
--- NOTE | ~2021-03-20 | HEMODYNAMI ---
PATIENT:RAJNI CHAVEZ MEDICAL RECORD: [id number] : 47 LOCATION:[facility] D.[address] [facility]# [id number] ADMISSION DATE: 03/20/21 Generatedon:112:12 Patient name: RAJNI CHAVEZ Patient #: [id number] SSN: [id number] : 1945 Date of study: 03/21/2021 Page: Of Hemodynamic Procedure Report Patient Data Patient Demographics Procedure consent was obtained First Name: RAJNI Gender: Male Last Name: SCOTT : 1945 [facility] Initial: KIMBERLI Age: 75 year(s) AUDIE Race: Patient #: [id number] SSN: [id number] Additional ID: [id number] Contact details Address: [address] [place] [address] State: [place] City: [place] Zip code: [address] Past Medical History Allergies: No known allergies Admission Admission Data Admission Date: 03/20/2021 Admission Time: 14:43 Arrival Date: 03/21/2021 Arrival Time: 0:00 Admit Source: Other Insurance Payor: Medicare Room #: D.2[address] [facility] #: [id number] Lab Results Lab Result Date: 03/21/2021 Lab Result Time: 0:00 Biochemistry Name Units Result Min Max BUN mg/dl 29 --(----)-* 7 18 Creatinine mg/dl 2 --(----)-* 0.6 1.3 eGFR ml/min 35 *-(----)-- 90 120 NONAFRICAN CBC Name Units Result Min Max Hematocrit % 38.1 *-(----)-- 42 54 Hemoglobin g/dl 12.7 -*(----)-- 13.5 17.5 Procedure Procedure Types Cath Procedure Diagnostic Procedure LHC LHC w/Coronaries w/Grafts Sedation Charges Moderate Sedation 25-39 minutes Procedure Description Procedure Date Procedure Date: 03/21/2021 Procedure Start Time: 11:40 Procedure End Time: 12:08 Procedure Staff Name Function oNam Torres MD Performing Physician Keisha Munoz RT Monitor Bryce Kevin RN Nurse Susan Red RT Scrub Procedure Data Cath Procedure Fluoroscopy Diagnostic fluoroscopy Total fluoroscopy Time: 2.6 time: 2.6 min min Diagnostic fluoroscopy Total fluoroscopy dose: 665 dose: 665 mGy mGy Contrast Material Contrast Material Type Amount (ml) Isovue 300 91 Entry Location Entry Primary Successful Side Size Upsize Upsize Entry Closure Succes sful Closure Location (Fr) 1 (Fr) 2 (Fr) Remarks Device Remarks Femoral Right 5 Fr Exoseal artery Estimated blood loss: 10 ml Diagnostic catheters Device Type Used For End Catheter Placement MULTIPACK JL 4.0 5Fr Procedure catheter MULTIPACK 3DRC 5Fr Procedure catheter MULTIPACK Pigtail 5 Fr Ventriculography catheter Procedure Complications No complications Procedure Medications Medication Administration Route Dosage Oxygen etCO2 Nasal cannula 2 l/min Lidocaine 2% added to field 20 Heparin Flush Bag added to field 2 bags (1000units/500ml NS) 0.9% NaCl I.V. 200 ml/hr Versed I.V. 1 mg Fentanyl I.V. 50 mcg Versed I.V. 1 mg Fentanyl I.V. 50 mcg Integrilin (Bolus I.V. 7.3 ml 2mg/ml) Heparin Drip I.V. drip 1000 units/hr (90590eceej/250 D5W) Integrilin Drip I.V. drip 6.5 ml/hr (75mg/100ml) Hemodynamics Rest HGB: 12.7 (g/dl) Heart Rate: 66 (bpm) Snapshots Pre Cath Intra NCS Post Cath Vital Signs Time Heart Resp SPO2 etCO2 NIBP Rhythm Pain Sedation Rate (ipm) (%) (mmHg) (mmHg) Status Level (bpm) 11:14:09 68 18 98 0 108/63(95) NSR 0 (11) 10(A) , No pain 11:18:17 73 16 97 0 79/60(74) NSR 0 (11) 10(A) , No pain 11:22:59 70 10 98 0 115/69(87) NSR 0 (11) 10(A) , No pain 11:27:13 64 13 99 15.7 94/50(74) NSR 0 (11) 10(A) , No pain 11:31:19 64 13 99 30 101/51(74) NSR 0 (11) 10(A) , No pain 11:35:27 66 13 98 19.5 98/52(81) NSR 0 (11) 9(A) , No pain 11:39:33 67 13 99 13.5 100/51(65) NSR 0 (11) 9(A) , No pain 11:43:34 70 14 98 4.5 115/65(83) NSR 0 (11) 9(A) , No pain 11:47:42 74 18 98 27.7 111/67(87) NSR 0 (11) 9(A) , No pain 11:51:48 80 12 98 13.5 118/66(89) NSR 0 (11) 9(A) , No pain 11:55:54 79 15 96 12.7 123/71(89) NSR 0 (11) 10(A) , No pain 12:00:00 76 14 96 37.6 108/65(85) NSR 0 (11) 10(A) , No pain 12:04:10 74 15 97 18.7 83/62(72) NSR 0 (11) 10(A) , No pain 12:08:09 95 21 No Cuff NSR 0 (11) 10(A) , No pain Medications Time Medication Route Dose Verified Delivered Reason No sotero Effectiveness by by 11:19:39 Oxygen etCO2 2 l/min Noam Vickyie used for Nasal [facility] Moises Kevin RN procedure cannula 11:19:45 Lidocaine 2% added 20ml Noam Noam for local to vial [facility] anesthetic field MD HOPKINS 11:19:53 Heparin Flush added 2 bags Noam Noam used for Bag to [facility] procedure (1000units/500ml field MD HOPKINS NS) 11:20:02 0.9% NaCl I.V. 200 Noam Wu Per physician ml/hr [facility] Moises Kevin RN, MD 11:31:05 Versed I.V. 1 mg Noam Buffie for sedation [facility] Moises Kevin RN, MD 11:31:10 Fentanyl I.V. 50 mcg Noam Vickyie for sedation St Moises Kevin RN, MD 11:40:10 Versed I.V. 1 mg Noam Vickyie for sedation St Moises Kevin RN, MD 11:40:13 Fentanyl I.V. 50 mcg Noam Buffie for sedation St Moises Kevin RN, MD 11:54:05 Integrilin I.V. 7.3 ml Noam otero wa sted (Bolus 2mg/ml) [facility] Moises Kevin RN antiplatelet 2.7 ml therapy of vial 12:04:52 Heparin Drip I.V. 1000 Noam Wu for (92079qgwrz/250 drip units/hr [facility] Moises Kevin RN anticoagulation D5W) 12:07:39 Integrilin Drip I.V. 6.5 Noam otero re nal (75mg/100ml) drip ml/hr [facility] Moises Kevin RN antiplatelet dose therapy to run for 18 hrs Procedure Log Time Note 10:47:30 Informed consent obtained and on chart 10:47:50 Diagnostic Cath Status : Urgent 10:48:17 Arrival Date: 03/21/2021 12:00:00 AM 10:48:18 Admit Source: Other 10:48:25 Insurance Payor : Medicare 10:49:27 ACC Patient presents with Unstable Angina CCS Anginal Class 2--Slight limitation of ordinary activity. 10:49:30 Procedure Status Urgent Heart Cath (IP). 10:49:32 Time tracking: Regular hours (M-F 7:00 - 5:00) 10:49:36 Plan of Care:Hemodynamics will remain stable., Cardiac rhythm will remain stable., Comfort level will be maintained., Respiratory function will remain adequate., Patient/ family verbilizes understanding of procedure., Procedure tolerated without complication., Recovers from procedure without complications.. 10:49:47 H&P Date Dictated: 03/20/2021 Within 30 days and on chart.. 10:49:51 Patient NPO since Midnight. 10:49:53 Family unavailable. 10:50:07 Patient allergic to No known allergies 10:50:31 Alarms reviewed by R. N. 10:50:31 Sharps counted by scrub and verified by R.N. 10:50:36 Stress Test: no; N/A ? 11:12:51 Right groin area was prepped with chlora-prep and draped in sterile fashion 11:13:03 Warm blankets applied, and nadeen hugger turned on for patient comfort. 11:13:03 Correct patient and procedure confirmed by team. 11:13:04 ECG and BP/O2 sat monitors applied to patient. 11:13:05 Vital chart was started 11::07 Baseline sample Acquired. :: Baseline sample Acquired. ::19 Rhythm: sinus rhythm ::21 Full Disclosure recording started :: Pre-procedure instructions explained to patient. 11:13:27 Is the patient allergic to Iodine/contrast media? No. 11::28 Was the patient premedicated? Yes 11:13:35 Is patient on blood thinner?Yes 11::38 ACC The patient was administered the following blood thiners within the last 24 hours: ACCPlavix 11::42 Patient diabetic? No. 11::49 Previous problem with sedation/anesthesia? No ? 11::52 Snore? Yes 11::54 Sleep apnea? No 11:14:00 Dentures? No ? 11:14:09 IV patent on arrival in left hand with 0.9% NaCl at [facility]. 11:15:00 Lab Result : Creatinine 2 mg/dl 11:15:00 Lab Result : BUN 29 mg/dl 11:15:00 Lab Result : eGFR NONAFRICAN 35 ml/min 11:15:00 Lab Result : Hemoglobin 12.7 g/dl 11:15:00 Lab Result : Hematocrit 38.1 % 11:15:08 Lab results completed and on chart. 11:19:39 Oxygen 2 l/min etCO2 Nasal cannula was administered by Bryce Kevin RN; used for procedure; Verbal order read back and verified. 11:19:45 Lidocaine 2% 20ml vial added to field was administered by Noam Torres MD; for local anesthetic; Verbal order read back and verified. 11:19:53 Heparin Flush Bag (1000units/500ml NS) 2 bags added to field was administered by Noam Torres MD; used for procedure; Verbal order read back and verified. 11:20:02 0.9% NaCl 200 ml/hr I.V. was administered by Bryce Kevin RN; Per physician; Verbal order read back and verified. 11:22:11 IV Extension Set opened to sterile field. 11:26:51 Physician arrived 11::51 --------ALL STOP TIME OUT------ 11::52 Final Timeout: patient, procedure, and site verified with staff and physician. All members of the team are in agreement. 11:27:07 Right groin site verified by team. 11:27:12 Fire Safety Assessment: A--An alcohol-based skin anteseptic being used preoperatively., C--Open oxygen or nitrous oxide is being used., D--An ESU, laser, or fiber-optic light is being used. 11:27:16 Physical assessment completed. ASA score P 3 - A patient with severe systemic disease as per Noam Torres MD. 11:27:19 3b) 30-44 Moderately reduced kidney function. 11:27:22 Maximum allowable contrast dose (3.7 X eGFR X 0.75)91 ml. 11:27:28 Sedation plan: IV Moderate Sedation Medication:Versed, Fentanyl 11:27:32 Use device set Femoral Dx 11:27:34 ACIST Syringe (21398) opened to sterile field. 11:27:34 Bag Decanter (2002S) opened to sterile field. 11:27:35 Medline Cath Pack ([id number]) opened to sterile field. 11:27:39 ACIST Hand Control (47129) opened to sterile field. 11:27:39 ACIST Manifold (96180) opened to sterile field. 11:27:47 DIAGNOSTIC Multipack 5Fr catheter set (FC9915) opened to sterile field. 11:27:52 SHEATH 5FR Clarence (CJY989) opened to sterile field. 11:27:53 EMERALD Guide Wire (140-254) opened to sterile field. 11:31:05 Versed 1 mg I.V. was administered by Bryce Kevin RN; for sedation; Verbal order read back and verified. 11:31:10 Fentanyl 50 mcg I.V. was administered by Bryce Kevin RN; for sedation; Verbal order read back and verified. 11:40:10 Versed 1 mg I.V. was administered by Bryce Kevin RN; for sedation; Verbal order read back and verified. 11:40:13 Fentanyl 50 mcg I.V. was administered by Bryce Kevin RN; for sedation; Verbal order read back and verified. 11:40:48 Procedure started. 11:40:56 Local anesthetic to right femoral artery with Lidocaine 2% by Noam Torres MD.INITIAL ACCESS ONLY 11:41:11 A 5 Fr sheath was inserted into the Right Femoral artery 11:43:01 j wire advanced. 11:43:12 A MULTIPACK JL 4.0 5Fr catheter was advanced over the wire and used for Procedure. 11:43:29 LCA angiography performed. 11:43:46 Zero performed for pressure channel P1 11:46:01 LCA angiography performed. 11:46:08 A MULTIPACK 3DRC 5Fr catheter was advanced over the wire and used for Procedure. 11:48:21 RCA angiography performed. 11:48:28 WHITE to LAD angiography performed. 11:48:32 SVG to RCA occluded. 11:49:19 SVG to Circ angiography performed. 11:52:27 Catheter removed. 11:52:44 A MULTIPACK Pigtail 5 Fr catheter was advanced over the wire and used for Ventriculography. 11:52:50 EF : 55 % 11:52:57 LV gram done using ATWOOD 11:53:05 EXOSEAL 5Fr (EX500) opened to sterile field. 11:53:07 Tegaderm 4 x 4 (1626W) opened to sterile field. 11:54:05 Integrilin (Bolus 2mg/ml) 7.3 ml I.V. was administered by Bryce Kevin RN; for antiplatelet therapy; wasted 2.7 ml of vial Verbal order read back and verified. 11:57:35 Catheter removed. 11:57:45 Sheath removed intact; hemostasis achieved with Exoseal to the Right Femoral artery. 11:57:49 Procedure ended.(Physican Out) 11:58:11 Fluoroscopy time 02.60 minutes. 11:58:16 Flurop Dose total: 665 11:58:16 Fluoroscopy dose: 665 mGy 11:58:25 Dose Area Product 77521 mGy/cm. 11:58:32 Contrast amount:Isovue 300 91ml. 11:58:33 Maximum allowable dose exceeded? No. 11:58:45 Insertion/operative site no bleeding no hematoma. 11:58:50 Post right femoral artery:stable 11:58:52 Post Procedure Pulses reassessed and unchanged 11:59:04 Post-procedure physical assessment completed. ASA score P 3 - A patient with severe systemic disease as per Noam Torres MD. 11:59:09 Post procedure rhythm: sinus rhythm 11:59:12 Estimated blood loss: 10 ml 11:59:14 Post procedure instruction explained to patient.Patient verbalizes understanding. 11:59:29 Patient needs reinforcement of post procedure teaching. 11:59:43 Procedure type changed to Cath procedure, Diagnostic procedure, LHC, [facility] w/Coronaries w/Grafts, Sedation Charges, Moderate Sedation 25-39 minutes 11:59:45 Procedure and supply charges have been captured, reviewed, submitted and are correct. 12:01:11 Procedure Complication : No complications 12:04:52 Heparin Drip (07762dinzc/250 D5W) 1000 units/hr I.V. drip was administered by Bryce Kevin RN; for anticoagulation; Verbal order read back and verified. 12:07:39 Integrilin Drip (75mg/100ml) 6.5 ml/hr I.V. drip was administered by Bryce Kevin RN; for antiplatelet therapy; renal dose to run for 18 hrs Verbal order read back and verified. 12:08:11 Vital chart was stopped 12:08:31 [facility] Findings: MVD- MD will discuss options w/ pt 12:08:34 See physician's report for complete and final results. 12:08:36 Report given to [facility]. 12:08:41 Patient transfered to [facility] with Bed. 12:08:43 Procedure ended. 12:08:43 Full Disclosure recording stopped 12:08:52 End room use (Document Last) 12:11:14 End room use (Document Last) 12:12:04 End room use (Document Last) Device Usage Item Name Manufacture Quantity Catalog Hospital Part Current Minimal L ot# / Number Charge Number Stock Stock Serial# Code IV Hospira 1 56831-10 143470 97603 389281 5 Extension Set ACIST Acist 1 55501 978654 489257 052432 20 Syringe Medical (48873) Systems Inc Bag Microtek 1 911958 16942 750802 5 Decanter Medical Inc. () Medline Medline 1 [id number] 307602 50910 356533 5 Cath Pack ([id number]) ACIST Hand Acist 1 55554 111182 426514 066736 5 Control Medical (87252) Systems Inc ACIST Acist 1 79149 114420 383774 535403 5 Manifold Medical (72004) Systems Inc DIAGNOSTIC Cardinal 1 SB3212 464401 39726 175795 30 [facility] 5Fr catheter set (TJ9085) SHEATH 5FR Terumo 1 GWL809 480600 071310 275911 5 Clarence (XZH246) EMERALD Cardinal 1 113-713 325505 068808 673117 5 Guide Wire Health (824-421) MULTIPACK Cardinal 1 082141 5 JL 4.0 5Fr Health catheter MULTIPACK Cardinal 1 791912 5 3DRC 5Fr Health catheter MULTIPACK Cardinal 1 852565 5 Pigtail 5 Health Fr catheter EXOSEAL 5Fr Cardinal 1 EX500 973410 225043 222232 10 (EX500) Health Tegaderm 4 3M 1 1626W 657619 462497 904559 5 x 4 (1626W) Signature Audit [place] Stage Time Signature Unsigned Intra-Procedure 03/21/2021 Keisha Munoz 12:11:14 PM RT(R) Intra-Procedure 03/21/2021 Bryce Kevin RN 12:12:04 PM Intra-Procedure 03/21/2021 Noam Caba 12:12:37 PM Moises HOPKINS Signatures Performing Physician : Signature : Noam Torres MD Date : Time : Monitor : Keisha Munoz Signature : RT Date : Time : Nurse : Bryce Kevin RN Signature : Date : Time : [facility] [address], [place] [address]
--- NOTE | ~2021-03-20 | HEMODYNAMI ---
PATIENT:RAJNI CHAVEZ MEDICAL RECORD: [id number] : 47 LOCATION:[facility] D.2115 [facility]# [id number] ADMISSION DATE: 03/21/21 Generatedon:114:55 Patient name: RAJNI CHAVEZ Patient #: [id number] SSN: [id number] : 1945 Date of study: 03/22/2021 Page: Of Hemodynamic Procedure Report Patient Data Patient Demographics Procedure consent was obtained First Name: RAJNI Gender: Male Last Name: SCOTT : 1945 [facility] Initial: KIMBERLI Age: 75 year(s) AUDIE Race: Patient #: [id number] SSN: [id number] Additional ID: [id number] Contact details [address]: [address] [place] [address] State: [place] City: [place] Zip code: [address] Past Medical History Allergies: No known allergies Admission Admission Data Admission Date: 03/21/2021 Admission Time: 17:28 Arrival Date: 03/21/2021 Arrival Time: 0:00 Admit Source: Other Insurance Payor: Medicare Room #: D.2115 [facility] #: [id number] Height (in.): 67.72 BSA: 1.95 (m2) Height (cm.): 172 BMI: 27.72 (kg/m2) Weight (lbs.): 180.78 Weight (kg.): 82 Lab Results Lab Result Date: 03/21/2021 Lab Result Time: 0:00 Biochemistry Name Units Result Min Max BUN mg/dl 29 --(----)-* 7 18 Creatinine mg/dl 2 --(----)-* 0.6 1.3 eGFR ml/min 35 *-(----)-- 90 120 NONAFRICAN CBC Name Units Result Min Max Hematocrit % 38.1 *-(----)-- 42 54 Hemoglobin g/dl 12.7 -*(----)-- 13.5 17.5 Procedure Procedure Types Cath Procedure Diagnostic Procedure LHC FFR/IVUS FFR Initial FFR Additional Sedation Charges Moderate Sedation 25-39 minutes PCI Procedure Coronary Stent Coronary Stent Initial Hemochron ACT Test Procedure Description Procedure Date Procedure Date: 03/22/2021 Procedure Start Time: 14:21 Procedure End Time: 14:53 Procedure Staff Name Function Noam Torres MD Performing Physician Ana Stack RT Monitor Evin Voss RN Nurse Inocencio Lou RT Scrub Procedure Data Cath Procedure Fluoroscopy Diagnostic fluoroscopy Total fluoroscopy Time: 5 time: 5 min min Diagnostic fluoroscopy Total fluoroscopy dose: 477 dose: 477 mGy mGy Contrast Material Contrast Material Type Amount (ml) Isovue 300 88 Entry Location Entry Primary Successful Side Size Upsize Upsize Entry Closure Succes sful Closure Location (Fr) 1 (Fr) 2 (Fr) Remarks Device Remarks Femoral Left 6 Fr 6 Fr Exoseal artery Short Long Estimated blood loss: 10 ml Procedure Complications No complications Procedure Medications Medication Administration Route Dosage 0.9% NaCl I.V. 100 ml/hr Oxygen etCO2 Nasal cannula 2 l/min Lidocaine 2% added to field 20 Heparin Flush Bag added to field 2 bags (1000units/500ml NS) Versed I.V. 1 mg Fentanyl I.V. 50 mcg Versed I.V. 1 mg Fentanyl I.V. 50 mcg Versed I.V. 1 mg Heparin Bolus I.V. 3000 units Hemodynamics Rest BSA: 1.95 (m2) HGB: 12.7 (g/dl) O2 Consumption: Estimated: 219.81 (ml/min) O2 Co nsumption indexed: Estimated:112.72 (ml/min/m) Heart Rate: 64 (bpm) Snapshots Pre Cath Intra NCS Post Cath Vital Signs Time Heart Resp SPO2 etCO2 NIBP (mmHg) Rhythm Pain Sedation Rate (ipm) (%) (mmHg) Status Level (bpm) 14:00:06 64 14 98 0 139/79(94) NSR 0 (11) 10(A) , No pain 14:04:33 61 10 99 0 138/72(108) NSR 0 (11) 10(A) , No pain 14:08:47 58 16 97 9.7 104/59(73) NSR 0 (11) 10(A) , No pain 14:13:03 64 10 100 18 108/55(77) NSR 0 (11) 10(A) , No pain 14:17:17 62 13 100 11.2 115/63(83) NSR 0 (11) 10(A) , No pain 14:21:29 62 10 100 12 106/58(85) NSR 0 (11) 10(A) , No pain 14:25:45 61 10 99 0 101/58(76) NSR 0 (11) 10(A) , No pain 14:29:54 68 10 100 8.2 114/66(100) NSR 0 (11) 10(A) , No pain 14:34:11 62 12 98 0 121/62(96) NSR 0 (11) 10(A) , No pain 14:38:29 68 12 98 31.6 101/61(89) NSR 0 (11) 10(A) , No pain 14:42:41 65 12 99 20.3 109/60(95) NSR 0 (11) 10(A) , No pain 14:46:55 70 11 99 25.5 120/67(90) NSR 0 (11) 10(A) , No pain 14:51:08 68 11 98 19.5 114/63(89) NSR 0 (11) 10(A) , No pain Medications Time Medication Route Dose Verified Delivered Reason Notes Effectiveness by by 14:02:47 0.9% NaCl I.V. 100 Noam Evin used for ml/hr [facility] Voss RN procedure 14:02:59 Oxygen etCO2 2 Noam Evin used for Nasal l/min [facility] Voss RN procedure cannula 14:03:10 Lidocaine 2% added 20ml Noam Noam for local to vial [facility] anesthetic field MD HOPKINS 14:03:18 Heparin Flush added 2 Noam Noam used for Bag to bags [facility] procedure (1000units/500ml field MD HOPKINS NS) 14:19:44 Versed I.V. 1 mg Noam Evin for sedation [facility] Voss RN, MD 14:19:50 Fentanyl I.V. 50 Noam Evin for sedation mcg [facility] Voss RN, MD 14:25:54 Versed I.V. 1 mg Noam Evin for sedation [facility] Voss RN, MD 14:25:59 Fentanyl I.V. 50 Noam Evin for sedation mcg [facility] Voss RN, MD 14:32:46 Versed I.V. 1 mg Noam Cleary for sedation [facility] Voss RN, MD 14:47:42 Heparin Bolus I.V. 3000 Noam Cleary for units [facility] Mo[facility] Voss RN anticoagulation Procedure Log Time Note 13:30:02 Admit Source: Other 13:30:25 Procedure Status PCI. 13:30:29 Evin Voss RN sent for patient. Start room use. 13:30:30 Time tracking: Regular hours (M-F 7:00 - 5:00) 13:30:35 Plan of Care:Hemodynamics will remain stable., Cardiac rhythm will remain stable., Comfort level will be maintained., Respiratory function will remain adequate., Patient/ family verbilizes understanding of procedure., Procedure tolerated without complication., Recovers from procedure without complications.. 13:39:47 Informed consent obtained and on chart 13:41:30 Patient Weight : 180.78 lbs 13:41:33 Patient Height : 67.72 inches 13:44:59 Patient allergic to No known allergies 13:46:53 Patient received from Med II to CCL 1 Alert and oriented. Tansferred to table in Supine position. 13:46:54 Warm blankets applied, and nadeen hugger turned on for patient comfort. 13:46:54 Correct patient and procedure confirmed by team. 13:48:05 ECG and BP/O2 sat monitors applied to patient. 13:48:07 Full Disclosure recording started 13:56:00 Vital chart was started 13:56:37 Baseline sample Acquired. 13:56:40 Rhythm: sinus rhythm 13:56:44 Pre-procedure instructions explained to patient. 13:56:45 Pre-op teaching completed and patient verbalized understanding. 13:56:51 Is the patient allergic to Iodine/contrast media? No. 13:56:52 Is patient on blood thinner?Yes 13:56:57 ACC The patient was administered the following blood thiners within the last 24 hours: ACCPlavix 13:57:00 Patient diabetic? No. 13:57:02 Previous problem with sedation/anesthesia? No ? 13:57:04 Snore? Yes 13:57:05 Sleep apnea? No 13:57:06 Deviated septum? No 13:57:06 Opens mouth fully? Yes 13:57:07 Sticks out tongue? Yes 13:57:09 Airway obstruction? No ? 13:57:10 Dentures? No ? 13:57:13 Pre procedure: left dorsailis pedis pulse 1+ Palpable, but thready & weak; easily obliterated 13:57:17 Patient pain scale 0/10 ?. 13:57:52 IV patent on arrival in left hand with 0.9% NaCl at [facility]. 13:57:55 Lab results completed and on chart. 13:57:59 Left groin area was prepped with chlora-prep and draped in sterile fashion 13:58:00 Alarms reviewed by R. N. 13:58:00 Sharps counted by scrub and verified by R.N. 13:58:05 Use device set CATH PACK 13:58:07 ACIST Syringe (42812) opened to sterile field. 13:58:07 ACIST Hand Control (55083) opened to sterile field. 13:58:08 ACIST Manifold (37400) opened to sterile field. 13:58:08 Medline Cath Pack ([id number]) opened to sterile field. 13:58:08 Bag Decanter (2002S) opened to sterile field. 13:58:11 EMERALD Guide Wire (771-761) opened to sterile field. 13:58:17 SHEATH 6FR [place] (OCE893) opened to sterile field. 14:02:47 0.9% NaCl 100 ml/hr I.V. was administered by Evin Voss RN; used for procedure; Verbal order read back and verified. 14:02:59 Oxygen 2 l/min etCO2 Nasal cannula was administered by Evin Voss RN; used for procedure; Verbal order read back and verified. 14:03:10 Lidocaine 2% 20ml vial added to field was administered by Noam Torres MD; for local anesthetic; Verbal order read back and verified. 14:03:18 Heparin Flush Bag (1000units/500ml NS) 2 bags added to field was administered by Noam Torres MD; used for procedure; Verbal order read back and verified. 14:11:30 Zero performed for pressure channel P1 14:18:23 --------ALL STOP TIME OUT------ 14:18:24 Final Timeout: patient, procedure, and site verified with staff and physician. All members of the team are in agreement. 14:18:26 Left groin site verified by team. 14:18:29 Fire Safety Assessment: A--An alcohol-based skin anteseptic being used preoperatively., C--Open oxygen or nitrous oxide is being used., D--An ESU, laser, or fiber-optic light is being used. 14:18:31 Physical assessment completed. ASA score P 3 - A patient with severe systemic disease as per Noam Torres MD. 14:18:34 4) 15-29 [place]ley reduced kidney function. 14:18:38 Maximum allowable contrast dose (3.7 X eGFR X 0.75)75 ml. 14:18:42 Sedation plan: IV Moderate Sedation Medication:Versed, Fentanyl 14:19:44 Versed 1 mg I.V. was administered by Evin Voss RN; for sedation; Verbal order read back and verified. 14:19:50 Fentanyl 50 mcg I.V. was administered by Evin Voss RN; for sedation; Verbal order read back and verified. 14:20:30 Zero performed for pressure channel P1 14:20:34 Procedure started. 14:21:32 Local anesthetic to right femoral artery with Lidocaine 2% by Noam Torres MD.INITIAL ACCESS ONLY 14:22:30 A 6 Fr Short sheath was inserted into the Left Femoral artery 14:23:02 Zero performed for pressure channel P1 14:23:30 GUIDE 6FR JR 4.0 catheter ([id number]) opened to sterile field. 14:23:34 INFLATOR Merit BasixCompak (QX4902) opened to sterile field. 14:23:44 6 Fr JR 4 guide catheter was inserted over the wire 14:24:18 GUIDE REMOVED 14:24:36 LONG SHEATH NEEDED FOR TORTUOUS AORTA 14:24:54 SHEATH 6FR ARROW 45cm (CL-12774) opened to sterile field. 14:25:16 Sheath upsized to a 6 Fr Long. 14::54 Versed 1 mg I.V. was administered by Evin Voss RN; for sedation; Verbal order read back and verified. 14:25:59 Fentanyl 50 mcg I.V. was administered by Evin Voss RN; for sedation; Verbal order read back and verified. 14:26:12 6 Fr JR 4 guide catheter was inserted over the wire 14:29:21 RCA angiography performed. 14:30:24 SVG to RCA angiography performed. 14:30:28 SVG to Circ angiography performed. 14:31:05 Proceeding to intervention. 14:31:27 [place] OmniWire (35018) opened to sterile field. 14:32:46 Versed 1 mg I.V. was administered by Evin Voss RN; for sedation; Verbal order read back and verified. 14:33:47 OMNI Pressure wire advanced. 14:35:18 Wire advanced across lesion. 14:35:53 RCA lesion measured at .95 with IFR 14:36:24 Wire removed. 14:36:30 Pre PCI Site: Vein Graft Circ has 90% stenosis. 14:37:27 Wire redirected to SVG CIRC. 14:38:32 Wire advanced across lesion. 14:41:16 Place stent Inflation Number: 1 A INTEGRITY RX 3.0 x 15 stent ([id number]) was prepped and advanced across the Aorta Left -> Prox CX . The stent was deployed at 14 LOU for 0:25 (min:sec) . 14:42:06 Stent catheter was removed intact over wire. 14:42:57 SVG Circ lesion measured at .91 with IFR POST STENT 14:43:16 Wire removed. 14:43:16 Guide catheter removed. 14:43:36 EXOSEAL 6Fr (EX600) opened to sterile field. 14:45:36 Sheath removed intact; hemostasis achieved with Exoseal to the Left Femoral artery. 14:47:42 Heparin Bolus 3000 units I.V. was administered by Evin Voss RN; for anticoagulation; Verbal order read back and verified. 14:47:43 Procedure ended.(Physican Out) 14:47:59 ACT drawn and resulted at LO seconds. (normal therapeutic range 180-240 seconds). 14:48:06 Contrast amount:Isovue 300 88ml. 14:48:15 Fluoroscopy time 05.00 minutes. 14:48:19 Fluoroscopy dose: 477 mGy 14:48:19 Flurop Dose total: 477 14:48:27 Dose Area Product 01099 mGy/cm. 14:48:31 Maximum allowable dose exceeded? No. 14:48:32 Sharps counted by scrub and verified by R.N. 14:48:36 Post-op/insertion site Left Femoral artery dressed using a 4 x 4 and Tegaderm. 14:49:54 Post-procedure physical assessment completed. ASA score P 3 - A patient with severe systemic disease as per Noam Torres MD. 14:50:09 Post procedure rhythm: unchanged. 14:50:12 Estimated blood loss: 10 ml 14:50:14 Post procedure instruction explained to patient.Patient verbalizes understanding. 14:50:14 Patient needs reinforcement of post procedure teaching. 14:50:45 Procedure type changed to Cath procedure, Diagnostic procedure, LHC, FFR/IVUS, FFR Initial, FFR Additional, Sedation Charges, Moderate Sedation 25-39 minutes, PCI procedure, Coronary Stent, Coronary Stent Initial, Hemochron ACT Test 14:51:26 Procedure and supply charges have been captured, reviewed, submitted and are correct. 14:51:29 Procedure Complication : No complications 14:51:31 Vital chart was stopped 14:51:38 [facility] Findings: MVD- PCI performed (see procedure note) 14:51:39 Operative report dictated upon procedure completion. 14:51:39 See physician's report for complete and final results. 14:51:41 Report given to [facility]. 14:51:45 Patient transfered to [facility] with Bed. 14:53:41 Procedure ended. 14:53:41 Full Disclosure recording stopped 14:53:44 End room use (Document Last) 14:54:02 End room use (Document Last) Intervention Summary Intervention Notes Time ActionType Lesion and Equipment Action# Pressure Duration Attributes Used 14:41:16 Place stent Aorta Left INTEGRITY RX 1 14 00:25 -> Prox CX 3.0 x 15 stent ([id number]) Device Usage Item Name Manufacture Quantity Catalog Hospital Part Current Minimal Lot# / Number Charge Number Stock Stock Serial# Code ACIST Acist 1 69029 252505 410497 184635 20 Syringe Medical (48056) Systems Inc ACIST Hand Acist 1 88681 459899 987958 777775 5 Control Medical (74102) Systems Inc ACIST Acist 1 97331 891141 035909 209049 5 Manifold Medical (37143) Systems Inc Medline Cath Medline 1 [id number] 866951 50648 837165 5 Pack ([id number]) Bag Decanter Microtek 1 887659 29913 213892 5 () Medical Inc. EMERALD Cardinal 1 144-339 682269 136316 139443 5 Guide Wire [facility] (502-455) SHEATH 6FR Terumo 1 UPN014 906381 878349 565244 40 [place] (QUH543) GUIDE 6FR JR Medtronic 1 [id number] 675852 27250 442793 1 4.0 catheter (FN6AT15) INFLATOR [facility] 1 HG0030 014766 011153 044722 15 [facility] Medical BasixCompak (SR0285) SHEATH 6FR Teleflex 1 CL-11918 343887 321272 008246 5 ARROW 45cm (CL-23543) [place] 1 [id number] 129898 43056 9903 5 OmniWire (86312) INTEGRITY RX Medtronic 1 [id number] 968022 265555 399678 5 [id number] 3.0 x 15 stent ([id number]) EXOSEAL 6Fr Cardinal 1 EX600 274021 660826 521460 10 (EX600) Health Signature Audit [place] Stage Time Signature Unsigned Intra-Procedure 03/22/2021 Ana Stack 2:54:02 PM RT(R) Intra-Procedure 03/22/2021 Evin Voss RN 2:55:11 PM Intra-Procedure 03/22/2021 Noam Caba 2:55:33 PM Moises HOPKINS [facility] [address] [place] [address]
[~2021-03-20 11:24] MED LIST changes: +SEROQUEL25 MG PO
[2021-03-20 11:49] VITALS: BP 162/81
[2021-03-20 11:49] LABS: BASOPHILS 1.3 % (0-2); EOSINOPHILS 2.9 % (0-7); HEMATOCRIT 37.1 % (42.0-54.0); HEMOGLOBIN 12.3 g/dL (13.5-17.5); MCH 30.3 pg (26.0-34.0); MCHC 33.2 g/dL (31.0-37.0); MCV 91.5 fL (80.0-100.0); MEAN PLATELET VOLUME 8.3 fL (7.4-10.4); MONOCYTES 5.8 % (2-11); PLATELET COUNT 197 10x3/uL (130-400); RBC 4.06 10x6/uL (4.20-6.10); RDW 13.7 % (11.5-14.5); WBC 9.2 10x3/uL (4.8-10.8)
--- NOTE | 2021-03-20 12:00 | NUR ---
1200: PT TO ROOM, CAME BEMS. PT A&OX3, GCS 15, RR EVEN & UNLABPORED, NO S/S OF ACUTE DISTRESS NOTED AT THIS TIME, PT SET TO MONITOR, BLOOD DRAWN AND SENT TO LAB, EKG COMPLETED. WILL CONTINUE TO MONITOR. 1230: PT FAMILY TO BEDSIDE. 1330: PT RESTING IN ROOM AT THIS TIME, IV FLUIDS INITIATED. NO S/S OF ACUTE DISTRESS NOTED AT THIS TIME, WILL CONTINUE TO MONITOR.
[2021-03-20 12:06] LABS: CALC OSMOLALITY 290 mosm/kg (275-300); CALCIUM 8.6 mg/dL (8.5-10.1); CARBON DIOXIDE 31.5 mmol/L (21.0-32.0); CHLORIDE - SERUM 106 mmol/L (98-107); CREATININE - SERUM 2.3 mg/dL (0.6-1.3); GLUCOSE 93 mg/dL (74-106); POTASSIUM - SERUM 4.6 mmol/L (3.5-5.1); SODIUM 142 mmol/L (136-145); UREA NITROGEN 36 mg/dL (7-18); eGFR NON AFRICAN AMERICAN 30 mL/min (90-120)
[2021-03-20 12:34] LABS: ALBUMIN 3.7 g/dL (3.4-5.0); ALKALINE PHOSPHATASE 110 U/L (30-120); ALT (SGPT) 26 U/L (10-68); BILIRUBIN - TOTAL 0.34 mg/dL (0.2-1.3); CKMB 5.3 U/L (0.0-3.6); CREATINE KINASE 118 UL (21-232); MAGNESIUM - SERUM 2.3 mg/dL (1.8-2.4); PROTEIN - SERUM 7.4 g/dL (6.4-8.2)
[2021-03-20 12:37] LABS: TROPONIN-I 2.982 ng/mL (0.000-0.060)
[2021-03-20 13:19] LABS: INR 1.19 (0.85-1.17)
[2021-03-20 19:08] LABS: CKMB 4.4 U/L (0.0-3.6); CREATINE KINASE 113 UL (21-232)
[2021-03-20 19:13] LABS: TROPONIN-I 2.313 ng/mL (0.000-0.060)
--- NOTE | 2021-03-20 19:37 | NUR ---
REPORT GIVEN TO STEVIE DAMICO. NO S/S OF ACUTE DISTRESS NOTED AT THIS TIME.
[2021-03-21 01:57] VITALS: BP 140/72
--- NOTE | 2021-03-21 05:51 | NUR ---
PT RESTLESS DURING THE NIGHT. C/O OF PAIN WHEN PROMPTED, DESCRIBES IT BACK PAIN. WHEN ASKED IF ITS BETWEEN HIS SHOULDER BLADES HE STATES YES. HARD TO ASSESS R/T COGNITIVE ISSUES. C/O CP WHEN ASKED AT A LATER TIME. PT DOES NOT C/O OF ISSUES UNLESS ASKED DIRECTLY. PT DIAPHORETIC AND PALE ON INITAL ASSESSMENT, RESOLVED AT THIS TIME. CURRENTLY LOOKING FOR HIS , REDIRECTED EASILY. FALL PRECAUTIONS IN PLACE. WILL CTM.
[2021-03-21 05:52] VITALS: BP 148/68
--- NOTE | 2021-03-21 06:05 | NUR ---
PT NOW IRRATE WITH STAFF, THINKS WE ARE HIDING HIS .
[2021-03-21 06:08] LABS: EOSINOPHILS 3.8 % (0-7); HEMATOCRIT 38.1 % (42.0-54.0); HEMOGLOBIN 12.7 g/dL (13.5-17.5); LYMPHOCYTES 23.4 % (15-50); MCH 30.4 pg (26.0-34.0); MCHC 33.2 g/dL (31.0-37.0); MCV 91.3 fL (80.0-100.0); MEAN PLATELET VOLUME 8.7 fL (7.4-10.4); MONOCYTES 8.8 % (2-11); PLATELET COUNT 199 10x3/uL (130-400); RBC 4.17 10x6/uL (4.20-6.10); WBC 7.1 10x3/uL (4.8-10.8)
[2021-03-21 06:51] LABS: ALBUMIN 3.4 g/dL (3.4-5.0); ALKALINE PHOSPHATASE 111 U/L (30-120); ALT (SGPT) 22 U/L (10-68); CALC OSMOLALITY 283 mosm/kg (275-300); CALCIUM 8.4 mg/dL (8.5-10.1); CARBON DIOXIDE 26.8 mmol/L (21.0-32.0); CHLORIDE - SERUM 107 mmol/L (98-107); CKMB 3.3 U/L (0.0-3.6); CREATINE KINASE 110 UL (21-232); GLUCOSE 88 mg/dL (74-106); MAGNESIUM - SERUM 2.1 mg/dL (1.8-2.4); PHOSPHOROUS 2.7 mg/dL (2.5-4.9); POTASSIUM - SERUM 4.4 mmol/L (3.5-5.1); SODIUM 140 mmol/L (136-145); TROPONIN-I 1.211 ng/mL (0.000-0.060); UREA NITROGEN 29 mg/dL (7-18); eGFR NON AFRICAN AMERICAN 35 mL/min (90-120)
[2021-03-21 08:00] VITALS: BP 151/76
[2021-03-21 08:59] LABS: CHOL - HDL RATIO 3.4 ratio (2.3-4.9); LDL-HDL RATIO 1.9 ratio (1.5-3.5)
--- NOTE | 2021-03-21 12:26 | NUR ---
1150- STARTED A SECOND IV SITE DUE TO PT BEING ORDERED 2 IV DRIPS OVERNIGHT FROM COMPUTER SYSTEM VALIDATION SPECIALIST. 20G TO LEFT FOREARM X 1 ATTEMPT WITH HEPARIN DRIP TO THIS SITE.
--- NOTE | 2021-03-21 12:30 | NUR ---
RECEIVED PT BACK TO ROOM 2114. PT ALERT BUT WITH SOME CONFUSION. VITAL SIGNS STABLE, PLACED ON FREQUENT VITAL SIGNS. RT GROIN DRESSING CDI. NO S/S OF BLEEDING OR HEMATOMA NOTED. INSTRUCTED PT TO LAY FLAT FOR 2HRS, PT VERBILIZED UNDERSTANDING.
[2021-03-21 14:19] VITALS: Ht 172.7 cm; Wt 81.6 kg
[2021-03-21 16:00] VITALS: BP 111/71
--- NOTE | 2021-03-21 18:00 | NUR ---
CALLED LAB AND ASKED THEM IF THEY COULD COME DRAW THE APTT THAT WAS ORDERED FOR 1700 PT ON HEPARIN DRIP.
--- NOTE | 2021-03-21 18:22 | NUR ---
NO CHANGES TO RT GROIN FROM PREVIOUS ASSESSMENT. PT RESTING COMFORTABLY IN BED, GRANDDAUGHTER AT BEDSIDE, BED ALARM ON, CALL LIGHT IN REACH.
[2021-03-21 21:55] VITALS: BP 107/55
--- NOTE | 2021-03-21 23:00 | NUR ---
ROUNDING DONE WITH PATIENT HAVING NO NEEDS AT THIS TIME. ON HEART MONITOR SHOWING SR, HR 87. NPO PAST MIDNIGHT FOR POSSIBLE HEART CATH IN AM. LEFT FA PIV WITH HEPARIN AT 9 CC/HR NS INFUSING AT 50 CC/HR AT Y SITE. LEFT HAND PIV WITH INTEGERLIN INFUSING AT 6.9 CC/HR. RIGHT GROIN DRESSING IS CLEAN, DRY AND INTACT, NO HEMATOMA SEEN OR FELT. PPP AND STRONG. BED ALARM IS ON AND IN USE. NO SCD'S ON PATIENT IS ON HEPARIN DRIP AND INTEGERLIN. HX OF DEMENTIA. CALL LIGHT AT SIDE.
--- NOTE | 2021-03-22 01:24 | NUR ---
LAB HERE FOR TIMED BLOOD DRAW FOR PTT.
--- NOTE | 2021-03-22 01:43 | NUR ---
PTT RESULTS OF 101.5. PER PROTOCOL, HEPARIN HELD X 30 MIN THEN WILL DECREASE BY 200 UNITS.
[2021-03-22 02:21] VITALS: BP 115/67
--- NOTE | 2021-03-22 02:23 | NUR ---
PTT IS 101.5. HEPARIN WAS HELD X 30 MIN AND RESTARTED AT 7 CC/HR INFUSING. PTT ORERED TIMED.
--- NOTE | 2021-03-22 04:43 | NUR ---
URINE SENT TO LAB ORDERED. VOIDS 650 CC CLEAR YELLOW URINE.
[2021-03-22 05:43] LABS: BASOPHILS 0.7 % (0-2); EOSINOPHILS 3.7 % (0-7); HEMATOCRIT 36.4 % (42.0-54.0); HEMOGLOBIN 12.2 g/dL (13.5-17.5); LYMPHOCYTES 24.4 % (15-50); MCH 30.8 pg (26.0-34.0); MCHC 33.4 g/dL (31.0-37.0); MEAN PLATELET VOLUME 8.9 fL (7.4-10.4); MONOCYTES 7.9 % (2-11); NEUTROPHILS 63.3 % (40-80); PLATELET COUNT 195 10x3/uL (130-400); RBC 3.96 10x6/uL (4.20-6.10); WBC 8.6 10x3/uL (4.8-10.8)
[2021-03-22 06:01] LABS: ALBUMIN 3.3 g/dL (3.4-5.0); BILIRUBIN - TOTAL 0.27 mg/dL (0.2-1.3); CARBON DIOXIDE 29.4 mmol/L (21.0-32.0); CREATININE - SERUM 2.5 mg/dL (0.6-1.3); MAGNESIUM - SERUM 2.3 mg/dL (1.8-2.4); PHOSPHOROUS 2.7 mg/dL (2.5-4.9); POTASSIUM - SERUM 4.4 mmol/L (3.5-5.1); PROTEIN - SERUM 6.7 g/dL (6.4-8.2)
[2021-03-22 06:06] VITALS: BP 147/61
[2021-03-22 07:23] LABS: BILIRUBIN NEGATIVE (NEGATIVE); GRANULAR CAST 1 LPF (0-1); KETONE NEGATIVE mg/dL (< 1+); NITRITE NEGATIVE (NEGATIVE); PH 5.5 (5.0-8.0); SQUAMOUS EPITHELIAL <1 HPF (0-4); UROBILINOGEN NORMAL mg/dL (< 2); WHITE CELLS - URINE 11 HPF (0-1)
[2021-03-22 08:00] VITALS: BP 125/66
[2021-03-22 08:26] LABS: CHOL - HDL RATIO 2.9 ratio (2.3-4.9); LDL-HDL RATIO 1.7 ratio (1.5-3.5)
[2021-03-22 12:00] VITALS: BP 116/64
--- NOTE | 2021-03-22 15:14 | NUR ---
BACK FROM DIRECTOR OF OPERATIONS FOR THERAPY. VS WNL. LEFT GROIN STABLE WITHOUT BLEEDING OR HEMATOMA NOTED. WILL MONITOR.
--- NOTE | 2021-03-22 19:21 | NUR ---
ROUNDING DONE WITH PATIENT ON HEART MONITOR, LEFT GROIN DRESSING IS C/D/I. PPP AND STRONG. RIGHT GROIN DRESSING IS C/D/I FROM PREVIOUS PROCEDURE. LEFT FA PIV SEEN WITH NS INFUSING AT 50 CC/HR WITH ORANGE SWAB CAP ON. LEFT HAND SALINE LOCK SEEN WITH ORANGE SWAB CAP ON. ON 2L PER NC. BED ALARM IS ON AND IN USE.
[2021-03-22 20:00] VITALS: BP 112/67
[2021-03-23 01:08] VITALS: BP 124/56
--- NOTE | 2021-03-23 02:12 | NUR ---
RESTING WITH EYES CLOSED, RESP ARE EVEN. BED ALARM IS ON AND IN USE.
--- NOTE | 2021-03-23 03:21 | NUR ---
BED ALARM IN USE. PATIENT IS RESTING WITH EYES CLOSED, SLIGHT SNORING AT TIMES.
[2021-03-23 06:50] VITALS: BP 123/63
[2021-03-23 07:01] LABS: BASOPHILS 0.6 % (0-2); EOSINOPHILS 3.6 % (0-7); HEMOGLOBIN 12.1 g/dL (13.5-17.5); LYMPHOCYTES 19.2 % (15-50); MCH 29.9 pg (26.0-34.0); MCHC 32.7 g/dL (31.0-37.0); MCV 91.6 fL (80.0-100.0); MONOCYTES 8.4 % (2-11); NEUTROPHILS 68.2 % (40-80); PLATELET COUNT 198 10x3/uL (130-400); RBC 4.04 10x6/uL (4.20-6.10); WBC 8.1 10x3/uL (4.8-10.8)
[2021-03-23 07:06] LABS: ALBUMIN 3.3 g/dL (3.4-5.0); ANION GAP 8.8 mmol/L (8-16); BILIRUBIN - TOTAL 0.28 mg/dL (0.2-1.3); CALCIUM 7.8 mg/dL (8.5-10.1); CARBON DIOXIDE 28.9 mmol/L (21.0-32.0); CREATININE - SERUM 1.9 mg/dL (0.6-1.3); MAGNESIUM - SERUM 2.2 mg/dL (1.8-2.4); PHOSPHOROUS 2.7 mg/dL (2.5-4.9); POTASSIUM - SERUM 4.7 mmol/L (3.5-5.1); PROTEIN - SERUM 6.7 g/dL (6.4-8.2)
[2021-03-23 07:34] VITALS: BP 123/63
[2021-03-23 09:00] VITALS: BP 140/77
--- NOTE | 2021-03-23 14:25 | NUR ---
REPORT CALLED TO DURGA ROGERS IN [place]. UNDERSTANDING VOICED.
--- NOTE | 2021-03-23 17:27 | NUR ---
IV AND TELEMETRY DCD. ESCORTED TO [facility] BY W/C.
--- NOTE | 2021-03-24 08:29 | OP ---
PATIENT NAME: RAJNI CHAVEZ MEDICAL RECORD: [id number] :47 LOCATION:D.M2 D.5 ADMISSION DATE:03/21/21 SURGEON: WERNER FERRARO MD DATE OF OPERATION: 03/21/2021 PROCEDURE: Left heart catheterization, selective coronary angiography, right femoral artery approach. CATHETERS: A 5-Malay sheath, 5/4 left and right Jaquelin, 5/4 pig. The procedure was well tolerated. The patient was returned to the forbes. Sheath removed. ExoSeal device was placed. FINDINGS: Left ventriculography in 30 degree ATWOOD view shows inferior inferoapical hypokinesis. LV function appears to be still preserved at 50% to 55% CORONARY ANATOMY: Left main: Left main is free for disease. LAD: Fills to the first diagonal, then it is totally occluded. The diagonal itself is free of disease. Circumflex: Totally occluded. Right coronary artery: The right coronary artery down past the PDA, has a widely patent stent. BYPASS GRAFTS: Saphenous vein graft to posterolateral branch of the right coronary at the anastomotic site has extensive thrombus burden. JORGE 2 flow distally of 2. Circumflex has about a 70% stenosis in the mid portion. WHITE to the LAD is widely patent. IMPRESSION: Extensive thrombus burden. Saphenous vein graft posterolateral branch. Heparin and Integrilin therapy were initiated in the lab after sheath was closed. We will revisualize this tomorrow to make sure his thrombus was admitted incorrectly. Further recommendation based on clinical course. TRANSINT:[id number] Voice Confirmation ID: [id number] DOCUMENT ID: [id number] WERNER FERRARO MD at 0829 CC: [id number] DICTATION DATE: 03/21/21 1201 LAYOUT FORMER: 03/21/21 1625 DIS IN 03/23/21 [facility] [address] [place] [address]
--- NOTE | 2021-03-24 08:29 | OP ---
PATIENT NAME: RAJNI CHAVEZ MEDICAL RECORD: [id number] :47 LOCATION:D.M2 D.2115 ADMISSION DATE:03/21/21 SURGEON: WERNER FERRARO MD DATE OF OPERATION: 03/22/2021 PROCEDURE: Left heart catheterization, selective coronary angiography of the right coronary artery, the saphenous vein graft to the right coronary and saphenous vein graft to the circumflex as well as IFR of the chilkoot right, IFR of the saphenous vein graft to the circumflex and finally stenting to the saphenous vein graft to circumflex. FINDINGS: 1. Saphenous vein graft to the right still has marked thrombus burden. This, however, only supplies the PL branch with the majority of the right groin ran through the chilkoot right coronary as well as the posterior descending artery. 2. The chilkoot right coronary has a questionable stenosis in its mid portion; however, this is not significant. The IFR wire is greater than 0.9. 3. The saphenous vein graft to the circumflex. The saphenous vein graft to the circumflex shows about 80% stenosis in its proximal portion. PLAN: Intervention momentarily after using indwelling long 6-Yemeni sheath. We used the guide catheter, a JR guide catheter to engage the saphenous vein graft to the circumflex. We used the indwelling IFR wire to address the lesion. Stent deployed was a 3.0 x 15 mm Integrity drug-eluting stent up to 14 atmospheres for 45 seconds. Final angiography showed excellent resolution of 80% stenosis. No significant residual. This is confirmed with post-intervention IFR wire of actually 0.99. IMPRESSION: 1. Thrombosed saphenous vein graft to the posterolateral without intervention. 2. Successful PTCA stenting to the saphenous vein graft to circumflex. 3. No significant stenosis in the [place]koot right to the IFR wire. 4. Additional heparin was used in the case. 5. Sheath closed with ExoSeal device. 6. The patient was previously on Plavix. TRANSINT:[id number] Voice Confirmation ID: [id number] DOCUMENT ID: [id number] WERNER FERRARO MD at 0829 CC: [id number] DICTATION DATE: 03/22/21 1500 CLINICAL LAW PROFESSOR: 03/22/212 DIS IN 03/23/21 [facility] [address] [place] [address]
== END 2021-03-23 17:29 | DRG 282 ==
LOC: D.ER 11:24 → D.M2 14:43 → D.EDHOLD 14:43 → OBSVTIME 14:44 → D.M2 17:27
PROVIDERS: Family Medicine; Internal Medicine Cardiovascular Disease; Internal Medicine Interventional Cardiology; ADMIT Emergency Medicine; ATTEND Emergency Medicine
PROC: B2121ZZ Fluoroscopy of Single Coronary Artery Bypass Graft using Low Osmolar Contrast (ICD-10-PCS; 2021-03-21)
PROC: B2111ZZ Fluoroscopy of Multiple Coronary Arteries using Low Osmolar Contrast (ICD-10-PCS; principal; 2021-03-21 10:49)
PROC: B2151ZZ Fluoroscopy of Left Heart using Low Osmolar Contrast (ICD-10-PCS; 2021-03-22)
PROC: 4A023N7 Measurement of Cardiac Sampling and Pressure, Left Heart, Percutaneous Approach (ICD-10-PCS; 2021-03-22)
DX: I21.4 Non-ST elevation (NSTEMI) myocardial infarction (principal); D64.9 Anemia, unspecified; E55.9 Vitamin D deficiency, unspecified; F01.50 Vascular dementia, unspecified severity, without behavioral disturbance, psychotic disturbance, mood disturbance, and anxiety; I10 Essential (primary) hypertension; F32.9 Major depressive disorder, single episode, unspecified; I25.119 Atherosclerotic heart disease of native coronary artery with unspecified angina pectoris; I12.9 Hypertensive chronic kidney disease with stage 1 through stage 4 chronic kidney disease, or unspecified chronic kidney disease; N18.9 Chronic kidney disease, unspecified; Z87.891 Personal history of nicotine dependence